=== PATIENT | male | born 1960 | race Caucasian/White ===

== ENCOUNTER 2016-09-21 14:03 | Outpatient (CLI) | payer MEDICAID | END 2016-09-21 14:04 | disposition home or self-care (01) | DX: Z12.2 Encounter for screening for malignant neoplasm of respiratory organs (principal); F17.209 Nicotine dependence, unspecified, with unspecified nicotine-induced disorders; M79.605 Pain in left leg; M79.604 Pain in right leg | CPT/HCPCS: 93925; 93970; G0297 ==

== ENCOUNTER 2016-09-21 14:08 | Outpatient (CLI) | payer MEDICAID | END 2016-09-21 14:09 | disposition home or self-care (01) | DX: M79.605 Pain in left leg (principal); M79.604 Pain in right leg ==

== ENCOUNTER 2016-09-29 13:15 | Outpatient (CLI) | payer MEDICAID | END 2016-09-29 13:16 | disposition home or self-care (01) | DX: J43.9 Emphysema, unspecified (principal) ==

== ENCOUNTER 2016-11-01 13:09 | Outpatient (CLI) | payer MEDICAID ==
[2016-11-01] MEDS ORDERED: ALBUTEROL NEB 2.5 MG/3 ML INH ONE (13:27)
== END 2016-11-01 13:10 | disposition home or self-care (01) ==
DX: J43.9 Emphysema, unspecified (principal)
CPT/HCPCS: 94060; 94729; J7613

== ENCOUNTER 2017-01-10 10:42 | Outpatient (CLI) | payer MEDICAID | END 2017-01-10 10:43 | disposition critical access hospital (66) | LOC: EMS 10:42 | PROVIDERS: ATTEND Surgery | DX: R53.81 Other malaise (principal); R11.0 Nausea | CPT/HCPCS: A0425; A0427 ==

== ENCOUNTER 2017-01-10 11:07 | Emergency (ER) | payer MEDICAID ==
[2017-01-10] MEDS ORDERED: MAG HYDROX/AL HYDROX/SIMETH 30 ML UDC PO STA (11:44)
[2017-01-10] MEDS ORDERED: MAG HYDROX/AL HYDROX/SIMETH 30 ML UDC ONE (11:52)
== END 2017-01-10 13:44 | disposition home or self-care (01) ==
DX: R07.2 Precordial pain (principal); I25.10 Atherosclerotic heart disease of native coronary artery without angina pectoris; J44.9 Chronic obstructive pulmonary disease, unspecified; I10 Essential (primary) hypertension
CPT/HCPCS: 36415; 71020; 80053; 83690; 84484; 93005; 93010; 99283; 99284; A9270

== ENCOUNTER 2017-01-13 12:36 | Outpatient (CLI) | payer MEDICAID | END 2017-01-13 12:37 | disposition home or self-care (01) | DX: M79.604 Pain in right leg (principal); M79.605 Pain in left leg; I25.5 Ischemic cardiomyopathy ==

== ENCOUNTER 2017-03-24 12:29 | Outpatient (CLI) | payer MEDICAID | END 2017-03-24 12:30 | disposition critical access hospital (66) | LOC: EMS 12:29 | PROVIDERS: ATTEND Surgery | DX: R19.7 Diarrhea, unspecified (principal); R53.1 Weakness; R11.0 Nausea; R42 Dizziness and giddiness | CPT/HCPCS: A0425; A0429 ==

== ENCOUNTER 2017-03-24 12:51 | Emergency (ER) | payer MEDICAID ==
--- NOTE | 2017-03-24 13:17 | ED Physician Documentation ---
History of Present Illness - Stated complaint Stated Complaint: DIARRHEA - Chief complaint Chief Complaint: Neuro - History obtained from History obtained from: Patient, Family (mother) - History of Present Illness Timing: How many days ago (2) - Additonal information Additional information: The patient is a 56-year-old male who presents with nausea and vomiting of 2 days duration. He has had watery diarrhea yesterday, but not today. He denies abdominal pain or dysuria. He has felt "hot and cold," reports slight dyspnea, as well as "dizziness." He denies cough or chest pain. He reports similar symptoms twice in the past, and expresses concern that "they haven't been able to figure out what is wrong." Past medical history is significant for myocardial infarction in August 2016, after which he underwent coronary stents 4. He stopped smoking cigarettes 6 months ago, and reports a 40 pound weight gain since stopping smoking. Review of Systems Constitutional: reports: Chills, Fatigue Ears: denies: Tinnitus/ringing Nose: denies: Congestion Throat: denies: Sore throat Cardiac: denies: Chest pain / pressure Respiratory: reports: Dyspnea. denies: Cough GI: reports: Nausea, Vomiting, Diarrhea. denies: Abdominal Pain : denies: Dysuria Skin: denies: Rash Musculoskeletal: denies: Back pain, Extremity swelling Neurologic: reports: Generalized weakness. denies: Focal weakness, Numbness, Headache PD PAST MEDICAL HISTORY - Past Medical History Cardiovascular: Hypertension, Coronary artery disease, [place] Respiratory: None Neuro: None Endocrine/Autoimmune: None - Past Surgical History Past Surgical History: Yes Cardiovascular: Coronary stent - Present Medications Home Medications: Ambulatory Orders Medication Instructions Recorded Confirmed Atorvastatin [Lipitor] 80 mg PO DAILY 01/10/17 01/10/17 Carvedilol 1 tab PO BID 01/10/17 01/10/17 Clopidogrel [Plavix] 1 tab PO DAILY 01/10/17 01/10/17 Gabapentin 1 tab PO DAILY 01/10/17 01/10/17 Lisinopril 1 tab PO DAILY 01/10/17 01/10/17 Spironolactone 12.5 mg PO DAILY 01/10/17 01/10/17 Promethazine [Phenergan] 25 - 50 mg PO Q6H PRN #10 tab 03/24/17 - Allergies Allergies/Adverse Reactions: Allergies Allergy/AdvReac Type Severity Reaction Status Date / Time ibuprofen Allergy Nausea Verified 03/24/17 13:07 - Social History Does the pt smoke?: No Smoking Status: Former smoker Does the pt drink ETOH?: No Does the pt have substance abuse?: Yes PD ED PE NORMAL - Vitals Vital signs reviewed: Yes (hypertensive) - General General: Alert and oriented X 3, Well developed/nourished - HEENT HEENT: Atraumatic, EOMI, Pharynx benign - Neck Neck: No adenopathy, No JVD - Cardiac Cardiac: RRR, No murmur - Respiratory Respiratory: No respiratory distress, Clear bilaterally - Abdomen Abdomen: Soft, Non tender, No organomegaly - Back Back: No CVA TTP - Derm Derm: No rash - Extremities Extremities: No edema, No calf tenderness / cord - Neuro Neuro: Alert and oriented X 3, No motor deficit, No sensory deficit Results - Vitals Vitals: Oxygen O2 Source Room air - EKG (time done) 13:06 Rate: Rate (enter#) (72) Rhythm: NSR Cardinal: Normal Intervals: Normal [place] Ischemia: Q waves (in leads V2 and V3, consistent with previous anteroseptal MT. ) Compare to prior EKG: Unchanged from prior EKG (No significant change since prior tracing of 01/10/2017.) Computer interpretation: Agree with computer - Labs Labs: Laboratory Tests 03/24/17 03/24/17 03/24/17 14:20 14:20 14:20 WBC 9.6 RBC 5.04 Hgb 12.3 L Hct 37.5 L MCV 74.4 L MCH 24.4 L MCHC 32.9 RDW 20.0 H Plt Count 179 MPV 8.5 Neut # 7.9 H Lymph # 1.0 L [place] # 0.7 Eos # 0.0 Baso # 0.0 Absolute Nucleated RBC 0.00 Nucleated RBCs 0.0 Sodium 137 Potassium 4.2 Chloride 107 Carbon Dioxide 24 Anion Gap 6.0 BUN 24 H Creatinine 1.0 Estimated GFR (MDRD) 77 L Glucose 125 H Calcium 9.5 Total Bilirubin 0.3 AST 33 ALT 52 Alkaline Phosphatase 68 Troponin I 0.05 Total Protein 7.0 Albumin 4.0 Globulin 3.0 Albumin/Globulin Ratio 1.3 Lipase 49 Urine Color Urine Clarity Urine pH Ur Specific [place] Urine Protein Urine Glucose (UA) Urine Ketones Urine Occult Blood Urine Nitrite Urine Bilirubin Urine Urobilinogen Ur Leukocyte Esterase Ur Microscopic Review Urine Culture Comments 03/24/17 14:25 WBC RBC Hgb Hct MCV MCH MCHC RDW Plt Count MPV Neut # Lymph # [place] # Eos # Baso # Absolute Nucleated RBC Nucleated RBCs Sodium Potassium Chloride Carbon Dioxide Anion Gap BUN Creatinine Estimated GFR (MDRD) Glucose Calcium Total Bilirubin AST ALT Alkaline Phosphatase Troponin I Total Protein Albumin Globulin Albumin/Globulin Ratio Lipase Urine Color YELLOW Urine Clarity CLEAR Urine pH 6.0 Ur Specific [place] <=1.005 Urine Protein NEGATIVE Urine Glucose (UA) NEGATIVE Urine Ketones NEGATIVE Urine Occult Blood NEGATIVE Urine Nitrite NEGATIVE Urine Bilirubin NEGATIVE Urine Urobilinogen 0.2 (NORMAL) Ur Leukocyte Esterase NEGATIVE Ur Microscopic Review NOT INDICATED Urine Culture Comments NOT INDICATED PD MEDICAL DECISION MAKING - ED course Complexity details: reviewed old records, reviewed results, re-evaluated patient , considered differential, d/w patient, d/w family ED course: The patient's presentation is significant for vomiting and diarrhea with mild dehydration. His presentation does not suggest an acute abdominal process, and his labs are unremarkable except for a slightly elevated BUN/creatinine ratio. While in the emergency department he demonstrated ability to drink fluids orally without any recurrent nausea or diarrhea. He is being discharged with prescription for Phenergan. I discussed with him and his mother the results of his workup, symptomatic treatment and outpatient follow-up, as well as potentially worrisome signs or symptoms that should prompt reevaluation in the emergency department. Departure - Departure Disposition: 01 Home, Self Care Clinical Impression: Vomiting and diarrhea, Dehydration Hypertension Qualifiers: Hypertension type: unspecified secondary hypertension Qualified Code(s): I15.9 - Secondary hypertension, unspecified Condition: Stable Instructions: ED Diet Vomiting Diarrhea, ED Dehydration Follow-Up: Juanita Landeros ARNP [Credentialed Staff Provider] - Prescriptions: Promethazine [Phenergan] 25 - 50 mg PO Q6H PRN #10 tab PRN Reason: Nausea / Vomiting Comments: 1. Drink plenty of fluids. 2. You can use Phenergan as prescribed if needed for nausea. 3. Follow-up with your primary physician within 1-2 weeks. Call to schedule appointment. 4. Return to the emergency department if you develop persistent vomiting, recurrent dehydration, or otherwise worsening symptoms. Discharge Date/Time: 03/24/17 17:09
[2017-03-24 14:45] LABS: BILIRUBIN,URINE NEGATIVE (NEGATIVE)
[2017-03-24 14:47] LABS: UA CHARGE (STRIP ONLY) YES; UR CULTURE IF IND NOT INDICATED
[2017-03-24 14:47] LABS: BASOPHILS % (AUTO) 0.5 %; EOSINOPHILS % (AUTO) 0.3 %; HCT - HEMATOCRIT 37.5 % (42.0-52.0); HGB - HEMOGLOBIN 12.3 g/dL (14.0-18.0); LYMPHOCYTES % (AUTO) 9.9 %; MEAN CORPUSCULAR HEMOGLOBIN 24.4 pg (27.0-31.0); MEAN CORPUSCULAR HGB CONC 32.9 g/dL (32.0-36.0); MEAN CORPUSCULAR VOLUME 74.4 fL (80.0-94.0); MEAN PLATELET VOLUME 8.5 fL (7.4-11.4); MONOCYTES # (AUTO) 0.7 10^3/uL (0.0-1.0); MONOCYTES % (AUTO) 7.2 %; NEUTROPHILS # (AUTO) 7.9 10^3/uL (1.5-6.6); NEUTROPHILS % (AUTO) 82.1 %; RED BLOOD COUNT 5.04 10^6/uL (4.70-6.10); UNCORRECTED WHITE BLOOD COUNT 9.6 x10^3/uL; WHITE BLOOD COUNT 9.6 x10^3/uL (4.8-10.8)
[2017-03-24 14:59] LABS: ALBUMIN/GLOBULIN RATIO 1.3 (1.0-2.2); BILIRUBIN,TOTAL 0.3 mg/dL (0.2-1.0); CALCIUM 9.5 mg/dL (8.5-10.3); POTASSIUM 4.2 mmol/L (3.5-5.0)
[2017-03-24 17:10] VITALS: BP 166/76
== END 2017-03-24 17:09 | disposition home or self-care (01) ==
LOC: EDUNIT# → SUPCPDRO 12:51 → ED 12:51
DX: R11.10 Vomiting, unspecified (principal); R19.7 Diarrhea, unspecified; E86.0 Dehydration; I10 Essential (primary) hypertension; I25.2 Old myocardial infarction; I25.10 Atherosclerotic heart disease of native coronary artery without angina pectoris; Z95.5 Presence of coronary angioplasty implant and graft; Z87.891 Personal history of nicotine dependence
CPT/HCPCS: 36415; 80053; 81001; 81003; 83690; 84484; 85025; 87086; 93005; 99283

== ENCOUNTER 2017-05-24 13:52 | Outpatient (CLI) | payer MEDICAID | END 2017-05-24 13:53 | disposition critical access hospital (66) | LOC: EMS 13:52 | PROVIDERS: ATTEND Surgery | DX: R07.89 Other chest pain (principal); R42 Dizziness and giddiness; R11.0 Nausea; R06.02 Shortness of breath | CPT/HCPCS: A0425; A0427 ==

== ENCOUNTER 2017-05-24 14:13 | Emergency (ER) | payer MEDICAID ==
[2017-05-24] MEDS ORDERED: SODIUM CHLORIDE 0.9% 1,000 ML IV ONE ×2 (14:33)
--- NOTE | 2017-05-24 14:48 | ED Physician Documentation ---
PD HPI CHEST PAIN - Stated complaint Stated Complaint: CP - Chief complaint Chief Complaint: Cardiac - History obtained from History obtained from: Patient, EMS - History of Present Illness Timing - onset: How many hours ago (1) Timing - onset during: Light activity (vacuuming) Timing - duration: Hours (1) Timing - details: Abrupt onset Pain level max: 5 Pain level now: 0 Quality: Pressure, Tightness Location: Substernal Radiation: Other (non-radiating) Improved by: Nitro (CP resolved with 1 SL NTG), ASA (took 4 ASA FEED WEIGHER (81mg)) Worsened by: Other (nothing) Associated symptoms: Shortness of air, Nausea, Feeling faint / dizzy. No: Diaphoresis, Vomiting, General Weakness, Palpitations, Cough Similar symptoms before: Diagnosis (ACS, 4 cardiac stents at [facility] in [place] 08/2016) Recently seen: Not recently seen Review of Systems Ten Systems: 10 systems reviewed and negative Constitutional: denies: Fever, Chills Respiratory: denies: Cough, Hemoptysis, Wheezing GI: denies: Abdominal Pain, Nausea, Vomiting, Diarrhea Skin: denies: Rash Musculoskeletal: denies: Neck pain, Back pain Neurologic: denies: Headache PD PAST MEDICAL HISTORY - Past Medical History Cardiovascular: Hypertension, Coronary artery disease, [place] Respiratory: None Neuro: None Endocrine/Autoimmune: None - Past Surgical History Past Surgical History: Yes Cardiovascular: Coronary stent - Present Medications Home Medications: Ambulatory Orders Medication Instructions Recorded Confirmed Atorvastatin [Lipitor] 80 mg PO DAILY 01/10/17 05/24/17 Carvedilol 1 tab PO BID 01/10/17 05/24/17 Clopidogrel [Plavix] 1 tab PO DAILY 01/10/17 05/24/17 Lisinopril 1 tab PO DAILY 01/10/17 05/24/17 Spironolactone 12.5 mg PO DAILY 01/10/17 05/24/17 raNITIdine [Zantac] 150 mg PO DAILY 05/24/17 05/24/17 - Allergies Allergies/Adverse Reactions: Allergies Allergy/AdvReac Type Severity Reaction Status Date / Time ibuprofen Allergy Nausea Verified 03/24/17 13:07 - Social History Does the pt smoke?: No Smoking Status: Former smoker Does the pt drink ETOH?: No Does the pt have substance abuse?: Yes PD ED PE NORMAL - Vitals Vital signs reviewed: Yes - General General: Alert and oriented X 3, No acute distress, Well developed/nourished - HEENT HEENT: PERRL, Moist mucous membranes - Neck Neck: Supple, no meningeal sign - Cardiac Cardiac: RRR, Strong equal pulses - Respiratory Respiratory: No respiratory distress, Clear bilaterally - Abdomen Abdomen: Soft, Non tender, Non distended - Derm Derm: Warm and dry, No rash - Neuro Neuro: Alert and oriented X 3 - Psych Psych: Normal mood, Normal affect Results - Vitals Vitals: Oxygen O2 Source Room air - EKG (time done) 1429 Rate: Rate (enter#) (60) Rhythm: NSR [place]: Normal Intervals: Normal [place] QRS: Normal Ischemia: Normal ST segments, Q waves (V1-3) - Labs Labs: Laboratory Tests 05/24/17 05/24/17 05/24/17 14:55 14:55 14:55 WBC 7.4 RBC 4.70 Hgb 11.8 L Hct 36.4 L MCV 77.6 L MCH 25.2 L MCHC 32.5 RDW 17.9 H Plt Count 200 MPV 8.1 Neut # 5.1 Lymph # 1.3 L [place] # 0.7 Eos # 0.2 Baso # 0.1 Absolute Nucleated RBC 0.00 Nucleated RBCs 0.0 Sodium 138 Potassium 4.1 Chloride 108 Carbon Dioxide 21 Anion Gap 9.0 BUN 24 H Creatinine 1.0 Estimated GFR (MDRD) 77 L Glucose 107 H Calcium 9.5 Total Bilirubin 0.6 AST 24 ALT 34 Alkaline Phosphatase 63 Troponin I < 0.04 Total Protein 6.8 Albumin 4.0 Globulin 2.8 Albumin/Globulin Ratio 1.4 Lipase 107 H - Rads (name of study) cxr Radiology: Prelim report reviewed, EMP read contemporaneously, See rad report ( no acute disease) PD MEDICAL DECISION MAKING - ED course Complexity details: reviewed old records, reviewed results, re-evaluated patient , considered differential (No ST elevation NH, no aortic dissection, no PE, no tension pneumothorax, no aortic aneurysm), d/w patient ED course: Patient is a 56-year-old male who presents to the emergency department with chest pain. Has a history of for cardiac stents within the past year. His symptoms resolved in the emergency department and states that he feels much better and wants to go home. Implored the patient to stay for serial cardiac enzymes and potential repeat stress testing. Patient adamantly refuses this. He states he understands the risks and he feels better and wants to go home. He understands that we could miss a heart attack a stent occlusion or other serious medical issue. He is alert and oriented 3. Does not appear intoxicated. Does not appear to be under the influence of any substances. States clear understanding of the risks. Patient signed AMA. This document was made in part using voice recognition software. While efforts are made to proofread this document, sound alike and grammatical errors may occur. Departure - Departure Disposition: 07 Against Medical Advice Clinical Impression: Chest pain Qualifiers: Chest pain type: unspecified Qualified Code(s): R07.9 - Chest pain, unspecified Condition: Good Follow-Up: Andres Delgado MD [Primary Care Provider] - Tomorrow Comments: Return if you change your mind about being further evaluated or admitted. You are signing out against medical advice today. You are welcome to return at any time. Discharge Date/Time: 05/24/17 16:53
[2017-05-24 15:04] LABS: BASOPHILS # (AUTO) 0.1 10^3/uL (0.0-0.1); BASOPHILS % (AUTO) 1.4 %; EOSINOPHILS # (AUTO) 0.2 10^3/uL (0.0-0.7); EOSINOPHILS % (AUTO) 2.1 %; HCT - HEMATOCRIT 36.4 % (42.0-52.0); HGB - HEMOGLOBIN 11.8 g/dL (14.0-18.0); LYMPHOCYTES # (AUTO) 1.3 10^3/uL (1.5-3.5); MEAN CORPUSCULAR HEMOGLOBIN 25.2 pg (27.0-31.0); MEAN CORPUSCULAR HGB CONC 32.5 g/dL (32.0-36.0); MEAN CORPUSCULAR VOLUME 77.6 fL (80.0-94.0); MEAN PLATELET VOLUME 8.1 fL (7.4-11.4); MONOCYTES # (AUTO) 0.7 10^3/uL (0.0-1.0); NEUTROPHILS # (AUTO) 5.1 10^3/uL (1.5-6.6); NEUTROPHILS % (AUTO) 69.5 %; RED CELL DISTRIBUTION WIDTH 17.9 % (12.0-15.0); UNCORRECTED WHITE BLOOD COUNT 7.4 x10^3/uL; WHITE BLOOD COUNT 7.4 x10^3/uL (4.8-10.8)
[2017-05-24 15:17] LABS: ALBUMIN/GLOBULIN RATIO 1.4 (1.0-2.2); BILIRUBIN,TOTAL 0.6 mg/dL (0.2-1.0); CALCIUM 9.5 mg/dL (8.5-10.3); POTASSIUM 4.1 mmol/L (3.5-5.0); TOTAL PROTEIN 6.8 g/dL (6.7-8.2)
--- NOTE | 2017-05-24 15:57 | XRAY Preliminary Report ---
Exam: XR Chest 1 View IMPRESSION: No focal consolidation. [facility] SITE ID: [id number]
--- NOTE | 2017-05-24 16:00 | XRAY Report ---
EXAM: CHEST RADIOGRAPHY EXAM DATE: 05/24/2017 03:08 PM. CLINICAL HISTORY: Chest pain. COMPARISON: Chest radiograph dated 01/10/2017. TECHNIQUE: 1 view. FINDINGS: Lungs/Pleura: No focal opacities evident. No pleural effusion. No pneumothorax. Mediastinum: Within exam limitations, cardiomediastinal contour is normal. Other: None. IMPRESSION: No focal consolidation. [facility] Referring Provider Line: [phone] SITE ID: [id number]
[2017-05-24 16:45] VITALS: BP 129/94
== END 2017-05-24 16:53 | disposition left against medical advice (07) ==
LOC: EDUNIT# → ED 14:13
DX: R07.9 Chest pain, unspecified (principal); R94.31 Abnormal electrocardiogram [ECG] [EKG]; I10 Essential (primary) hypertension; I25.10 Atherosclerotic heart disease of native coronary artery without angina pectoris; I25.2 Old myocardial infarction; Z95.5 Presence of coronary angioplasty implant and graft; Z87.891 Personal history of nicotine dependence
CPT/HCPCS: 36415; 71010; 80053; 83690; 84484; 85025; 93005; 96360; 96361; 99284

== ENCOUNTER 2017-12-04 08:00 | Outpatient (CLI) | payer MEDICAID ==
[2017-12-04 17:59] LABS: BASOPHILS # (AUTO) 0.1 10^3/uL (0.0-0.1); BASOPHILS % (AUTO) 1.2 %; EOSINOPHILS % (AUTO) 0.7 %; HGB - HEMOGLOBIN 12.4 g/dL (14.0-18.0); LYMPHOCYTES # (AUTO) 1.1 10^3/uL (1.5-3.5); LYMPHOCYTES % (AUTO) 15.7 %; MEAN CORPUSCULAR VOLUME 74.9 fL (80.0-94.0); MEAN PLATELET VOLUME 9.1 fL (7.4-11.4); MONOCYTES # (AUTO) 0.6 10^3/uL (0.0-1.0); MONOCYTES % (AUTO) 8.2 %; NEUTROPHILS # (AUTO) 5.4 10^3/uL (1.5-6.6); NEUTROPHILS % (AUTO) 74.2 %; PLT - PLATELET COUNT 211 10^3/uL (130-450); RED BLOOD COUNT 5.18 10^6/uL (4.70-6.10); RED CELL DISTRIBUTION WIDTH 19.4 % (12.0-15.0); WHITE BLOOD COUNT 7.2 x10^3/uL (4.8-10.8)
[2017-12-04 18:15] LABS: CALCIUM 9.3 mg/dL (8.5-10.3); CREATININE 1.1 mg/dL (0.6-1.2)
== END 2017-12-04 08:01 ==
LOC: LAB.S 08:00
PROVIDERS: ATTEND Nurse Practitioner Family
DX: I25.10 Atherosclerotic heart disease of native coronary artery without angina pectoris (principal); D64.9 Anemia, unspecified; E78.5 Hyperlipidemia, unspecified
CPT/HCPCS: 36415; 80048; 83721; 85025

== ENCOUNTER 2018-01-02 20:42 | Outpatient (CLI) | payer MEDICAID | END 2018-01-02 20:43 | disposition short-term general hospital (02) | LOC: EMS 20:42 | PROVIDERS: ATTEND Surgery | DX: R07.89 Other chest pain (principal); R06.02 Shortness of breath; R42 Dizziness and giddiness | CPT/HCPCS: A0170; A0425; A0427 ==

== ENCOUNTER 2018-01-05 12:27 | Outpatient (CLI) | payer MEDICAID | END 2018-01-05 12:28 | disposition short-term general hospital (02) | LOC: EMS 12:27 | PROVIDERS: ATTEND Surgery | DX: R07.89 Other chest pain (principal); R42 Dizziness and giddiness; R61 Generalized hyperhidrosis | CPT/HCPCS: A0170; A0425; A0427 ==

== ENCOUNTER 2018-01-19 21:54 | Outpatient (CLI) | payer MEDICAID | END 2018-01-19 21:55 | disposition critical access hospital (66) | LOC: EMS 21:54 | PROVIDERS: ATTEND Surgery | DX: R07.9 Chest pain, unspecified (principal); R61 Generalized hyperhidrosis; R42 Dizziness and giddiness | CPT/HCPCS: A0425; A0427 ==

== ENCOUNTER 2018-01-19 22:20 | Emergency (ER) | payer MEDICAID ==
--- NOTE | 2018-01-19 22:32 | ED Physician Documentation ---
PD HPI CHEST PAIN - Stated complaint Stated Complaint: CP - Chief complaint Chief Complaint: Cardiac - History obtained from History obtained from: Patient - History of Present Illness Timing - onset: Enter time (18:00), Today Timing - onset during: Rest Timing - details: Abrupt onset Pain level max: 5 Pain level now: 0 Quality: Pain Location: Substernal, Left chest, Right chest Radiation: No: Jaw, Neck, Back, Abdominal, Left upper extremity, Right upper extremity Improved by: Nothing Worsened by: Other (no exacerbating factors) Associated symptoms: Shortness of air, Diaphoresis Recently seen: Emergency Dept - Additional information Additional information: patient complains of pounding palpitations, chest pain, mild shortness of breath , and sweats. Symptoms started 6 PM at home while at rest and have resolved prior to this evaluation. Patient says he was in the [facility] emergency room four times last week for these symptoms, and was observed overnight on one of these visits. Patient says testing on all of those visits were unremarkable. He also had a stress test two days ago at [facility] which was negative, and had a cardiac catheterization June 2017, which showed patent vessels including stents (h/o stents). he says he feels these symptoms might be due to anxiety, and xanax has worked well when it was prescribed last week (he says he was prescribed 7 tablets and was even getting relief with half-tab dose), although he becomes concerned with these symptoms given his cardiac history. Review of Systems Constitutional: reports: Sweats. denies: Fever, Chills Cardiac: reports: Chest pain / pressure, Palpitations Respiratory: reports: Reviewed and negative GI: reports: Reviewed and negative PD PAST MEDICAL HISTORY - Past Medical History Cardiovascular: Hypertension, Coronary artery disease, [place] Respiratory: None Endocrine/Autoimmune: None - Past Surgical History Past Surgical History: Yes Cardiovascular: Coronary stent - Present Medications Home Medications: Ambulatory Orders Medication Instructions Recorded Confirmed Atorvastatin [Lipitor] 80 mg PO DAILY 01/10/17 05/24/17 Carvedilol 1 tab PO BID 01/10/17 05/24/17 Clopidogrel [Plavix] 1 tab PO DAILY 01/10/17 05/24/17 Lisinopril 1 tab PO DAILY 01/10/17 05/24/17 Spironolactone 12.5 mg PO DAILY 01/10/17 05/24/17 raNITIdine [Zantac] 150 mg PO DAILY 05/24/17 05/24/17 ALPRAZolam [Alprazolam] 0.5 - 1 mg PO TID PRN #20 tablet 01/20/18 - Allergies Allergies/Adverse Reactions: Allergies Allergy/AdvReac Type Severity Reaction Status Date / Time ibuprofen Allergy Nausea Verified 03/24/17 13:07 - Social History Does the pt smoke?: No Smoking Status: Former smoker Does the pt drink ETOH?: No Does the pt have substance abuse?: Yes PD ED PE NORMAL - Vitals Vital signs reviewed: Yes - General General: Alert and oriented X 3, No acute distress, Well developed/nourished - Cardiac Cardiac: RRR, No murmur - Respiratory Respiratory: No respiratory distress, Clear bilaterally - Derm Derm: Normal color, Warm and dry - Extremities Extremities: No edema - Neuro Neuro: Alert and oriented X 3 Results - Vitals Vitals: Oxygen O2 Source Room air - EKG (time done) No standard instances Rate: Rate (enter#) (61) Rhythm: NSR [place]: Normal Intervals: Normal [place] QRS: Normal Ischemia: Normal ST segments - Labs Labs: Laboratory Tests 01/19/18 01/19/18 01/19/18 22:51 22:51 22:51 WBC 8.5 RBC 3.77 L Hgb 9.0 L Hct 28.5 L MCV 75.6 L MCH 23.9 L MCHC 31.6 L RDW 17.0 H Plt Count 186 MPV 8.3 Neut # 7.1 H Lymph # 0.8 L [place] # 0.6 Eos # 0.0 Baso # 0.1 Absolute Nucleated RBC 0.00 Nucleated RBC % 0.0 Sodium 137 Potassium 3.8 Chloride 105 Carbon Dioxide 23 Anion Gap 9.0 BUN 17 Creatinine 1.0 Estimated GFR (MDRD) 77 L Glucose 124 H Calcium 9.8 Total Bilirubin 0.5 AST 21 ALT 24 Alkaline Phosphatase 48 Troponin I < 0.04 Total Protein 6.5 L Albumin 3.8 Globulin 2.7 Albumin/Globulin Ratio 1.4 Lipase 62 H PD MEDICAL DECISION MAKING - ED course Complexity details: reviewed results, re-evaluated patient (remained asymptomatic during ED stay), considered differential, d/w patient Departure - Departure Disposition: 01 Home, Self Care Clinical Impression: Chest pain, Palpitations, Anemia Condition: Good Instructions: ED Anemia Type Not Specified, ED Chest Pain Atypical Unkn Cause, ED Palpitations Follow-Up: Juanita Landeros ARNP [Primary Care Provider] - Prescriptions: ALPRAZolam [Alprazolam] 0.5 - 1 mg PO TID PRN #20 tablet PRN Reason: Anxiety Comments: Your red blood cell level was low today, but not at a level that would need transfusions or admission to the hospital. You should follow up with your primary care physician within the next 1-2 weeks for reevaluation. Discharge Date/Time: 01/20/18 01:32
[2018-01-19 23:01] LABS: BASOPHILS # (AUTO) 0.1 10^3/uL (0.0-0.1); BASOPHILS % (AUTO) 0.7 %; EOSINOPHILS % (AUTO) 0.6 %; LYMPHOCYTES # (AUTO) 0.8 10^3/uL (1.5-3.5); LYMPHOCYTES % (AUTO) 8.8 %; MEAN CORPUSCULAR HEMOGLOBIN 23.9 pg (27.0-31.0); MEAN CORPUSCULAR HGB CONC 31.6 g/dL (32.0-36.0); MEAN CORPUSCULAR VOLUME 75.6 fL (80.0-94.0); MEAN PLATELET VOLUME 8.3 fL (7.4-11.4); MONOCYTES # (AUTO) 0.6 10^3/uL (0.0-1.0); MONOCYTES % (AUTO) 6.5 %; NEUTROPHILS # (AUTO) 7.1 10^3/uL (1.5-6.6); NEUTROPHILS % (AUTO) 83.4 %; PLT - PLATELET COUNT 186 10^3/uL (130-450); RED BLOOD COUNT 3.77 10^6/uL (4.70-6.10); WHITE BLOOD COUNT 8.5 x10^3/uL (4.8-10.8)
[2018-01-19 23:12] LABS: ALBUMIN 3.8 g/dL (3.2-5.5); ALBUMIN/GLOBULIN RATIO 1.4 (1.0-2.2); BILIRUBIN,TOTAL 0.5 mg/dL (0.2-1.0); CALCIUM 9.8 mg/dL (8.5-10.3); TOTAL PROTEIN 6.5 g/dL (6.7-8.2)
[2018-01-20] MEDS ORDERED: ALPRAZolam 0.25 MG TABLET PO STA (00:04)
[2018-01-20 01:17] VITALS: BP 134/80
== END 2018-01-20 01:32 | disposition home or self-care (01) ==
LOC: EDUNIT# → ED 22:20
DX: R07.9 Chest pain, unspecified (principal); R00.2 Palpitations; D64.9 Anemia, unspecified; Z87.891 Personal history of nicotine dependence
CPT/HCPCS: 36415; 80053; 83690; 84484; 85025; 93005; 99284; A9270; 82550; 82553

== ENCOUNTER 2018-01-27 10:31 | Outpatient (CLI) | payer MEDICAID | END 2018-01-27 10:32 | disposition critical access hospital (66) | LOC: EMS 10:31 | PROVIDERS: ATTEND Surgery | DX: R07.9 Chest pain, unspecified (principal) | CPT/HCPCS: A0425; A0427 ==

== ENCOUNTER 2018-01-27 10:55 | Emergency (ER) | payer MEDICAID ==
--- NOTE | 2018-01-27 11:15 | ED Physician Documentation ---
PD HPI CHEST PAIN - Stated complaint Stated Complaint: CP - Chief complaint Chief Complaint: Cardiac - History obtained from History obtained from: Patient, EMS - History of Present Illness Timing - onset: Today Timing - onset during: Rest Timing - duration: Minutes Timing - details: Abrupt onset, Now resolved Quality: Pressure, Tightness Location: Substernal, Left chest Improved by: Rest Associated symptoms: Shortness of air, Diaphoresis, Feeling faint / dizzy, Palpitations Similar symptoms before: Diagnosis (panic attack) Recently seen: Emergency Dept - Additional information Additional information: 57-year-old male with history of coronary artery disease who has a single stent in place has developed recurrent symptoms of palpitations shortness of breath and diaphoresis and he has been into the emergency department at [facility] in [place] multiple times is been here to this emergency department and he has had prior workup and admission overnight at [facility]. He has been diagnosed with panic disorder and he has been having some luck with the use of Xanax three quarters of a milligram to control his symptoms and he has been placed on the Paxil. He took his first dose of Paxil last night and this morning he took a second dose unwittingly when he took half of a pill which he thought was his Spironolactone which he cuts in half and it was the other half of the Paxil he took from last night. Review of Systems Constitutional: denies: Fever Eyes: denies: Decreased vision Ears: denies: Ear pain Nose: denies: Rhinorrhea / runny nose, Congestion Throat: denies: Sore throat Cardiac: reports: Chest pain / pressure, Palpitations. denies: Pedal edema, Calf pain Respiratory: reports: Dyspnea. denies: Cough, Wheezing GI: denies: Abdominal Pain, Nausea, Vomiting : denies: Dysuria, Frequency PD PAST MEDICAL HISTORY - Past Medical History Cardiovascular: Hypertension, Coronary artery disease, [place] Respiratory: None Endocrine/Autoimmune: None - Past Surgical History Past Surgical History: Yes Cardiovascular: Coronary stent - Present Medications Home Medications: Ambulatory Orders Medication Instructions Recorded Confirmed Atorvastatin [Lipitor] 80 mg PO DAILY 01/10/17 05/24/17 Carvedilol 1 tab PO BID 01/10/17 05/24/17 Clopidogrel [Plavix] 1 tab PO DAILY 01/10/17 05/24/17 Lisinopril 1 tab PO DAILY 01/10/17 05/24/17 Spironolactone 12.5 mg PO DAILY 01/10/17 05/24/17 raNITIdine [Zantac] 150 mg PO DAILY 05/24/17 05/24/17 ALPRAZolam [Alprazolam] 0.5 - 1 mg PO TID PRN #20 tablet 01/20/18 Alprazolam [Xanax] 0.5 - 1 mg PO Q6HR PRN #15 tablet 01/27/18 Ferrous Sulfate 325 mg PO DAILY #30 tablet 01/27/18 - Allergies Allergies/Adverse Reactions: Allergies Allergy/AdvReac Type Severity Reaction Status Date / Time ibuprofen Allergy Nausea Verified 03/24/17 13:07 - Social History Does the pt smoke?: No Smoking Status: Former smoker Does the pt drink ETOH?: No Does the pt have substance abuse?: Yes - Immunizations Immunizations are current?: No Immunizations: TDAP >10years/unknown - POLST Patient has POLST: No PD ED PE NORMAL - Vitals Vital signs reviewed: Yes (hypertensive ) - General General: Alert and oriented X 3, No acute distress, Well developed/nourished, Other (pale appearing male in no distress) - HEENT HEENT: Atraumatic, PERRL - Neck Neck: Supple, no meningeal sign - Cardiac Cardiac: RRR, No murmur - Respiratory Respiratory: No respiratory distress, Clear bilaterally - Abdomen Abdomen: Soft, Non tender - Back Back: No CVA TTP, No spinal TTP - Derm Derm: Normal color, Warm and dry, No rash - Extremities Extremities: No deformity, No tenderness to palpate, No edema - Neuro Neuro: No motor deficit, No sensory deficit Eye Opening: Spontaneous Motor: Obeys Commands Verbal: Oriented GCS Score: 15 - Psych Psych: Normal mood, Normal affect Results - Vitals Vitals: Vital Signs - 24 hr 01/27/18 01/27/18 11:00 13:33 Temperature 36.2 C L Heart Rate 80 76 Respiratory 16 16 Rate Blood Pressure 163/114 H 147/86 H O2 Saturation 100 99 Oxygen O2 Source Room air - EKG (time done) 1100 Rate: Rate (enter#) (68) Rhythm: NSR Ischemia: Normal ST segments, Q waves Compare to prior EKG: Unchanged from prior EKG (01-19-18) Computer interpretation: Agree with computer - Labs Labs: Laboratory Tests 01/27/18 01/27/18 01/27/18 11:19 11:19 11:19 WBC 7.0 RBC 3.66 L Hgb 8.8 L Hct 27.9 L MCV 76.2 L MCH 24.2 L MCHC 31.7 L RDW 16.9 H Plt Count 160 MPV 8.0 Neut # 5.3 Lymph # 1.0 L [place] # 0.6 Eos # 0.0 Baso # 0.1 Absolute Nucleated RBC 0.00 Nucleated RBC % 0.0 Sodium 136 Potassium 4.2 Chloride 107 Carbon Dioxide 21 Anion Gap 8.0 BUN 22 H Creatinine 0.8 Estimated GFR (MDRD) 99 Glucose 111 H Calcium 9.0 Total Bilirubin 0.4 AST 19 ALT 24 Alkaline Phosphatase 51 Troponin I < 0.04 Total Protein 6.5 L Albumin 3.7 Globulin 2.8 Albumin/Globulin Ratio 1.3 Lipase 191 H Procedures - IVC sono (time) 1112 Bedside IVC sono: IVC measures (cm) (1.74), [place] PD MEDICAL DECISION MAKING - ED course Complexity details: reviewed old records, reviewed results, re-evaluated patient , considered differential, d/w patient ED course: 57-year-old male with a history of anemia and coronary artery disease has come into the emergency department today with another episode of chest pain. He states these pain today is similar to what he has had with panic attacks recently and he has just switched from taking Xanax to Paxil. He is taken only a second dose of Paxil and he has not had relief of his panic attacks yet. He is evaluated here in the emergency department and I do not see evidence of acute coronary syndrome but the patient does have significant anemia that looks like a microcytic anemia and has an elevated RDW consistent with blood loss recently. His indices are not changed much from 2 1/2 weeks ago. He is treated here with xanax with resolution of symptoms and we will provide a small amount of this until his paxil is fully effective. He has appointment for further work up of GI tract up coming. Departure - Departure Disposition: 01 Home, Self Care Clinical Impression: Panic attacks Anemia Qualifiers: Anemia type: iron deficiency Iron deficiency anemia type: chronic blood loss Qualified Code(s): D50.0 - Iron deficiency anemia secondary to blood loss ( chronic) Condition: Stable Instructions: ED Anemia Iron Deficiency, ED Panic Attack Follow-Up: Juanita Landeros ARNP [Primary Care Provider] - Prescriptions: Alprazolam [Xanax] 0.5 - 1 mg PO Q6HR PRN #15 tablet PRN Reason: Anxiety Ferrous Sulfate 325 mg PO DAILY #30 tablet Discharge Date/Time: 01/27/18 13:33
[2018-01-27 11:27] LABS: BASOPHILS # (AUTO) 0.1 10^3/uL (0.0-0.1); BASOPHILS % (AUTO) 0.8 %; EOSINOPHILS % (AUTO) 0.5 %; HGB - HEMOGLOBIN 8.8 g/dL (14.0-18.0); LYMPHOCYTES % (AUTO) 13.9 %; MEAN CORPUSCULAR HEMOGLOBIN 24.2 pg (27.0-31.0); MEAN CORPUSCULAR HGB CONC 31.7 g/dL (32.0-36.0); MEAN CORPUSCULAR VOLUME 76.2 fL (80.0-94.0); MONOCYTES # (AUTO) 0.6 10^3/uL (0.0-1.0); MONOCYTES % (AUTO) 9.2 %; NEUTROPHILS # (AUTO) 5.3 10^3/uL (1.5-6.6); NEUTROPHILS % (AUTO) 75.6 %; PLT - PLATELET COUNT 160 10^3/uL (130-450); RED BLOOD COUNT 3.66 10^6/uL (4.70-6.10); RED CELL DISTRIBUTION WIDTH 16.9 % (12.0-15.0)
[2018-01-27 11:42] LABS: ALBUMIN 3.7 g/dL (3.2-5.5); ALBUMIN/GLOBULIN RATIO 1.3 (1.0-2.2); BILIRUBIN,TOTAL 0.4 mg/dL (0.2-1.0); CREATININE 0.8 mg/dL (0.6-1.2); TOTAL PROTEIN 6.5 g/dL (6.7-8.2)
[2018-01-27] MEDS ORDERED: ALPRAZolam 0.25 MG TABLET PO STA (12:21)
--- NOTE | 2018-01-27 12:21 | XRAY Report ---
EXAM: CHEST RADIOGRAPHY EXAM DATE: 01/27/2018 11:34 AM. CLINICAL HISTORY: Chest pain. COMPARISON: 05/24/2017. TECHNIQUE: 2 views. FINDINGS: Lungs/Pleura: No focal opacities evident. No pleural effusion. No pneumothorax. Normal volumes. Mediastinum: Heart and mediastinal contours are unremarkable. Other: None. IMPRESSION: No acute cardiopulmonary abnormality. [facility] Referring Provider Line: [phone] SITE ID: [id number]
[2018-01-27 13:36] VITALS: BP 147/86
== END 2018-01-27 13:33 | disposition home or self-care (01) ==
LOC: EDUNIT# → ED 10:55
DX: F41.0 Panic disorder [episodic paroxysmal anxiety] (principal); D50.0 Iron deficiency anemia secondary to blood loss (chronic); R94.31 Abnormal electrocardiogram [ECG] [EKG]; I25.10 Atherosclerotic heart disease of native coronary artery without angina pectoris; I25.2 Old myocardial infarction; I10 Essential (primary) hypertension; Z95.5 Presence of coronary angioplasty implant and graft; Z87.891 Personal history of nicotine dependence; Z79.02 Long term (current) use of antithrombotics/antiplatelets
CPT/HCPCS: 36415; 71046; 80053; 83690; 84484; 85025; 93005; 99283; 99284; A9270

== ENCOUNTER 2018-01-28 17:00 | Outpatient (CLI) | payer MEDICAID | END 2018-01-28 17:01 | disposition short-term general hospital (02) | LOC: EMS 17:00 | PROVIDERS: ATTEND Surgery | DX: R07.9 Chest pain, unspecified (principal); F41.9 Anxiety disorder, unspecified | CPT/HCPCS: A0170; A0425; A0427 ==

== ENCOUNTER 2018-07-24 12:12 | Outpatient (CLI) | payer MEDICAID ==
[2018-07-24 17:45] LABS: BASOPHILS # (AUTO) 0.1 10^3/uL (0.0-0.1); BASOPHILS % (AUTO) 1.1 %; EOSINOPHILS # (AUTO) 0.1 10^3/uL (0.0-0.7); EOSINOPHILS % (AUTO) 1.1 %; HGB - HEMOGLOBIN 9.4 g/dL (14.0-18.0); LYMPHOCYTES # (AUTO) 0.8 10^3/uL (1.5-3.5); LYMPHOCYTES % (AUTO) 12.6 %; MEAN CORPUSCULAR HEMOGLOBIN 23.5 pg (27.0-31.0); MEAN CORPUSCULAR HGB CONC 30.8 g/dL (32.0-36.0); MEAN CORPUSCULAR VOLUME 76.3 fL (80.0-94.0); MEAN PLATELET VOLUME 9.1 fL (7.4-11.4); MONOCYTES # (AUTO) 0.5 10^3/uL (0.0-1.0); MONOCYTES % (AUTO) 8.3 %; NEUTROPHILS # (AUTO) 4.8 10^3/uL (1.5-6.6); NEUTROPHILS % (AUTO) 76.9 %; PLT - PLATELET COUNT 171 10^3/uL (130-450); RED BLOOD COUNT 3.99 10^6/uL (4.70-6.10); RED CELL DISTRIBUTION WIDTH 16.9 % (12.0-15.0); WHITE BLOOD COUNT 6.3 x10^3/uL (4.8-10.8)
[2018-07-24 18:09] LABS: ALBUMIN 4.2 g/dL (3.2-5.5); ALBUMIN/GLOBULIN RATIO 1.6 (1.0-2.2); BILIRUBIN,TOTAL 0.5 mg/dL (0.2-1.0); CALCIUM 9.5 mg/dL (8.5-10.3); TOTAL PROTEIN 6.9 g/dL (6.7-8.2)
== END 2018-07-24 12:13 | disposition home or self-care (01) ==
LOC: LAB.F 12:12
PROVIDERS: ATTEND Nurse Practitioner Family
DX: D64.9 Anemia, unspecified (principal)
CPT/HCPCS: 36415; 80053; 82728; 83540; 84466; 85025

== ENCOUNTER 2018-09-13 22:07 | Outpatient (CLI) | payer MEDICAID | END 2018-09-13 22:08 | disposition critical access hospital (66) | LOC: EMS 22:07 | PROVIDERS: ATTEND Surgery | DX: K62.5 Hemorrhage of anus and rectum (principal) | CPT/HCPCS: A0425; A0427; A0999 ==

== ENCOUNTER 2018-09-13 22:51 | Emergency (ER) | payer MEDICAID ==
[2018-09-13] MEDS ORDERED: SODIUM CHLORIDE 0.9% 1,000 ML IV ONE (22:59)
--- NOTE | 2018-09-13 23:30 | ED Physician Documentation ---
History of Present Illness - Stated complaint Stated Complaint: Bleeding Hemorrhoids - Chief complaint Chief Complaint: Abd Pain - History obtained from History obtained from: Patient - History of Present Illness Timing: How many weeks ago (4) Pain level now: 6 Improved by: nothing Worsened by: BM, sitting - Additonal information Additional information: c/o one month of worsening hemorrhoid pain. he says he saw PMD one month ago and was prescribed hydrocortisone cream and dibucaine but had no relief with the hydrocortisone and partial, transient relief with dibucaine (which he quicky ran out of). he changed PMDs and saw his new PMD today, was prescribed ntg cream but he says it was too expensive when he went to fill it. he says he has also been using marijuana suppositories without improvement. BIBA, given fentanyl and zofran en route. he says he has an appointment with local surgeon at end of this month Review of Systems Constitutional: denies: Fever GI: reports: Other (trace blood earlier this afternoon when wiping after BM). denies: Abdominal Pain, Constipation, Diarrhea PD PAST MEDICAL HISTORY - Past Medical History Cardiovascular: Hypertension, Coronary artery disease, [place] Respiratory: None Endocrine/Autoimmune: None - Past Surgical History Past Surgical History: Yes Cardiovascular: Coronary stent - Present Medications Home Medications: Ambulatory Orders Medication Instructions Recorded Confirmed Atorvastatin [Lipitor] 80 mg PO DAILY 01/10/17 05/24/17 Carvedilol 1 tab PO BID 01/10/17 05/24/17 Clopidogrel [Plavix] 1 tab PO DAILY 01/10/17 05/24/17 Lisinopril 1 tab PO DAILY 01/10/17 05/24/17 Spironolactone 12.5 mg PO DAILY 01/10/17 05/24/17 raNITIdine [Zantac] 150 mg PO DAILY 05/24/17 05/24/17 ALPRAZolam [Alprazolam] 0.5 - 1 mg PO TID PRN #20 tablet 01/20/18 Alprazolam [Xanax] 0.5 - 1 mg PO Q6HR PRN #15 tablet 01/27/18 Ferrous Sulfate 325 mg PO DAILY #30 tablet 01/27/18 Acetaminophen/Cod 300/30 [Tylenol 1 - 2 each PO Q6HR PRN #20 tablet 09/14/18 #3] - Allergies Allergies/Adverse Reactions: Allergies Allergy/AdvReac Type Severity Reaction Status Date / Time ibuprofen Allergy Nausea Verified 03/24/17 13:07 - Social History Does the pt smoke?: No Smoking Status: Former smoker Does the pt drink ETOH?: No Does the pt have substance abuse?: Yes - Immunizations Immunizations are current?: No Immunizations: TDAP >10years/unknown - POLST Patient has POLST: No PD ED PE NORMAL - Vitals Vital signs reviewed: Yes - General General: Alert and oriented X 3, No acute distress, Well developed/nourished - Abdomen Abdomen: Soft, Non tender PD ED PE EXPANDED - Rectal Rectal: Heme Occult Neg - QC+, Hemorrhoid (Firm hemorrhoid on right side (3 oclock position) that is mildly tender but reducible) Results - Vitals Vitals: Vital Signs - 24 hr 09/13/18 09/14/18 09/14/18 22:52 00:42 01:22 Temperature 36.0 C L Heart Rate 63 80 88 Respiratory 18 16 16 Rate Blood Pressure 135/91 H 136/91 H 136/82 H O2 Saturation 100 87 L 96 Oxygen O2 Source Room air PD MEDICAL DECISION MAKING - ED course Complexity details: considered differential, d/w patient ED course: Hemorrhoid is reducible at this time, does not currently appear thrombosed Departure - Departure Disposition: 01 Home, Self Care Clinical Impression: Hemorrhoids Condition: Good Instructions: ED Hemorrhoids Follow-Up: Dylon Hull MD [Primary Care Provider] - Prescriptions: Acetaminophen/Cod 300/30 [Tylenol #3] 1 - 2 each PO Q6HR PRN #20 tablet PRN Reason: Pain Discharge Date/Time: 09/14/18 01:30
[2018-09-14] MEDS ORDERED: MORPHINE 2 MG/ML CARPUJECT IVP STA (00:06)
[2018-09-14 01:24] VITALS: BP 136/82
== END 2018-09-14 01:30 | disposition home or self-care (01) ==
LOC: EDUNIT# → ED 22:51
DX: K64.9 Unspecified hemorrhoids (principal); I25.10 Atherosclerotic heart disease of native coronary artery without angina pectoris; I25.2 Old myocardial infarction; I10 Essential (primary) hypertension; Z87.891 Personal history of nicotine dependence
CPT/HCPCS: 96361; 96374; 99283

== ENCOUNTER 2018-09-17 03:03 | Outpatient (CLI) | payer MEDICAID | END 2018-09-17 03:04 | disposition critical access hospital (66) | LOC: EMS 03:03 | PROVIDERS: ATTEND Surgery | DX: K64.9 Unspecified hemorrhoids (principal) | CPT/HCPCS: A0425; A0429 ==

== ENCOUNTER 2018-09-17 03:26 | Emergency (ER) | payer MEDICAID ==
--- NOTE | 2018-09-17 03:57 | ED Physician Documentation ---
History of Present Illness - Stated complaint Stated Complaint: HEMORRHOID - Chief complaint Chief Complaint: General - History obtained from History obtained from: Patient - History of Present Illness Timing: How many weeks ago (4-5 weeks) Pain level max: >10 Pain level now: 10 Improved by: nothing Worsened by: BM, palpation - Additonal information Additional information: c/o over one month of hemorrhoid pain. He was T+R few days ago from this ED for same. Also evaluated by two doctors in outpatient setting, has been prescribed several different medications including topical steroid, topical anesthetic, and nitroglycerin ointment (he did not fill this last medication due to exorbitant cost). He has been getting some relief with the Tylenol #3 I prescribed on recent ED visit, but pain became severe tonight and BIBA for this pain. Has appointment with surgery at the end of this month. Review of Systems Constitutional: denies: Fever GI: denies: Abdominal Pain PD PAST MEDICAL HISTORY - Past Medical History Past Medical History: Yes Cardiovascular: Hypertension, Coronary artery disease, [place] Respiratory: None Endocrine/Autoimmune: None - Past Surgical History Past Surgical History: Yes Cardiovascular: Coronary stent - Present Medications Home Medications: Ambulatory Orders Medication Instructions Recorded Confirmed Atorvastatin [Lipitor] 80 mg PO DAILY 01/10/17 05/24/17 Carvedilol 1 tab PO BID 01/10/17 05/24/17 Clopidogrel [Plavix] 1 tab PO DAILY 01/10/17 05/24/17 Lisinopril 1 tab PO DAILY 01/10/17 05/24/17 Spironolactone 12.5 mg PO DAILY 01/10/17 05/24/17 raNITIdine [Zantac] 150 mg PO DAILY 05/24/17 05/24/17 ALPRAZolam [Alprazolam] 0.5 - 1 mg PO TID PRN #20 tablet 01/20/18 Alprazolam [Xanax] 0.5 - 1 mg PO Q6HR PRN #15 tablet 01/27/18 Ferrous Sulfate 325 mg PO DAILY #30 tablet 01/27/18 Acetaminophen/Cod 300/30 [Tylenol 1 - 2 each PO Q6HR PRN #20 tablet 09/14/18 #3] Acetaminophen with Codeine 1 each PO Q6HR PRN #14 tablet 09/17/18 [Tylenol with Codeine #4 Tablet] - Allergies Allergies/Adverse Reactions: Allergies Allergy/AdvReac Type Severity Reaction Status Date / Time ibuprofen Allergy Nausea Verified 09/17/18 03:29 - Social History Does the pt smoke?: No Smoking Status: Never smoker Does the pt drink ETOH?: No Does the pt have substance abuse?: Yes - Immunizations Immunizations are current?: No Immunizations: TDAP >10years/unknown - POLST Patient has POLST: No PD ED PE NORMAL - Vitals Vital signs reviewed: Yes - General General: Alert and oriented X 3, No acute distress, Well developed/nourished - Abdomen Abdomen: Soft, Non tender PD ED PE EXPANDED - Rectal Rectal: Hemorrhoid, Other (small hemorrhoid right side (3 o'clock position) that is soft and reducible, minimally tender. ). No: Fissure Results - Vitals Vitals: Vital Signs - 24 hr 09/17/18 09/17/18 03:24 04:55 Temperature 36.0 C L Heart Rate 92 83 Respiratory 18 18 Rate Blood Pressure 123/64 122/74 O2 Saturation 100 98 Oxygen O2 Source Room air PD MEDICAL DECISION MAKING - ED course Complexity details: reviewed old records, considered differential, d/w patient ED course: The hemorrhoid is noticeably smaller compared to recent ED visit (I was the physician on duty at that time as well), and it is not firm and edematous as it was previously. It is easily reduced and without erythema or significant tenderness. He c/o episodic severe pain. He says he cannot tolerate vicodin or percocet due to side effect, but can take codeine or morphine. I explained that I do not feel PO morphine would be appropriate for hemorrhoid pain, but I will write for limited amount of Tylenol #4 to try to keep him comfortable until he can be seen by the surgeon. Departure - Departure Disposition: 01 Home, Self Care Clinical Impression: Hemorrhoids Qualifiers: Hemorrhoid type: unspecified Qualified Code(s): K64.9 - Unspecified hemorrhoids Condition: Good Instructions: ED Hemorrhoids Follow-Up: Dylon Hull MD [Primary Care Provider] - Prescriptions: Acetaminophen with Codeine [Tylenol with Codeine #4 Tablet] 1 each PO Q6HR PRN #14 tablet PRN Reason: Pain Comments: In addition to the medications you are already using for your hemorrhoids, you can also try tracey stark (Tucks medicated pads). Discharge Date/Time: 09/17/18 04:55
[2018-09-17 04:55] VITALS: BP 122/74
== END 2018-09-17 04:55 | disposition home or self-care (01) ==
LOC: EDUNIT# → ED 03:26
DX: K64.9 Unspecified hemorrhoids (principal); I10 Essential (primary) hypertension
CPT/HCPCS: 99283

== ENCOUNTER 2018-09-21 00:57 | Outpatient (CLI) | payer MEDICAID ==
[2018-09-21] MEDS ORDERED: LIDO GARGLE 30 ML BOTTLE ONE (10:32)
== END 2018-09-21 00:58 | disposition critical access hospital (66) ==
LOC: EMS 00:57
PROVIDERS: ATTEND Surgery
DX: R10.9 Unspecified abdominal pain (principal)
CPT/HCPCS: A0425; A0427; A0999; A9270

== ENCOUNTER 2018-09-21 01:18 | Inpatient (IN) | payer MEDICAID ==
[2018-09-21] MEDS ORDERED: LIDOCAINE OINTMENT 5% 35.44 GM TUBE TOP STA (01:39)
[2018-09-21 02:19] LABS: INR 1.2 (0.8-1.2); PT - PROTHROMBIN TIME 13.8 secs (9.9-12.6)
[2018-09-21 02:21] LABS: BASOPHILS % (AUTO) 0.6 %; EOSINOPHILS % (AUTO) 0.3 %; LYMPHOCYTES # (AUTO) 0.5 10^3/uL (1.5-3.5); LYMPHOCYTES % (AUTO) 6.5 %; MEAN CORPUSCULAR HEMOGLOBIN 23.9 pg (27.0-31.0); MEAN CORPUSCULAR HGB CONC 30.7 g/dL (32.0-36.0); MEAN CORPUSCULAR VOLUME 77.8 fL (80.0-94.0); MEAN PLATELET VOLUME 8.2 fL (7.4-11.4); MONOCYTES # (AUTO) 0.5 10^3/uL (0.0-1.0); NEUTROPHILS # (AUTO) 6.2 10^3/uL (1.5-6.6); NEUTROPHILS % (AUTO) 85.6 %; PLT - PLATELET COUNT 212 10^3/uL (130-450); RED BLOOD COUNT 2.43 10^6/uL (4.70-6.10); RED CELL DISTRIBUTION WIDTH 20.9 % (12.0-15.0); WHITE BLOOD COUNT 7.2 x10^3/uL (4.8-10.8)
[2018-09-21 02:25] LABS: HGB - HEMOGLOBIN 5.8 g/dL (14.0-18.0)
[2018-09-21 02:26] LABS: ALBUMIN 3.5 g/dL (3.2-5.5); ALBUMIN/GLOBULIN RATIO 1.2 (1.0-2.2); BILIRUBIN,TOTAL 0.5 mg/dL (0.2-1.0); CALCIUM 8.4 mg/dL (8.5-10.3); CREATININE 1.1 mg/dL (0.6-1.2); TOTAL PROTEIN 6.4 g/dL (6.7-8.2)
[2018-09-21 02:43] LABS: PLATELET ESTIMATE, MANUAL NORMAL (130-450,000) (NORMAL)
[2018-09-21] MEDS ORDERED: PANTOPRAZOLE 40 MG VIAL IVP STA (03:14)
--- NOTE | 2018-09-21 03:19 | ED Physician Documentation ---
PD HPI GI BLEED - Stated complaint Stated Complaint: RECTAL BLEED,ANAL FIssure - Chief complaint Chief Complaint: Abd Pain - History obtained from History obtained from: Patient - History of Present Illness Timing - onset: How many hours ago (12) Timing - duration: Hours (12) Timing - details: Gradual onset Pain level max: 3 Pain level now: 3 Severity Comments: mild Associated symptoms: Vomiting, Coffee ground emesis, Black/tarry stool Contributing factors: No: Sick contact, Bad food, Travel Improved by: No: Eating, Laying still Worsened by: No: Eating, Moving - Additional information Additional information: 58-year-old male reports 1 day of dark stools and dark emesis. Patient had episode of syncope in the bathroom while at home. Review of Systems Constitutional: reports: Reviewed and negative Eyes: reports: Reviewed and negative Ears: reports: Reviewed and negative Nose: reports: Reviewed and negative Throat: reports: Reviewed and negative Cardiac: reports: Reviewed and negative Respiratory: reports: Reviewed and negative GI: reports: Reviewed and negative : reports: Reviewed and negative Skin: reports: Reviewed and negative Musculoskeletal: reports: Reviewed and negative Neurologic: reports: Reviewed and negative Psychiatric: reports: Reviewed and negative Endocrine: reports: Reviewed and negative Immunocompromised: reports: Reviewed and negative PD PAST MEDICAL HISTORY - Past Medical History Past Medical History: Yes Cardiovascular: Hypertension, Coronary artery disease, [place] Respiratory: None Endocrine/Autoimmune: None - Past Surgical History Past Surgical History: Yes Cardiovascular: Coronary stent - Present Medications Home Medications: Ambulatory Orders Medication Instructions Recorded Confirmed Atorvastatin [Lipitor] 80 mg PO DAILY 01/10/17 05/24/17 Carvedilol 1 tab PO BID 01/10/17 05/24/17 Clopidogrel [Plavix] 1 tab PO DAILY 01/10/17 05/24/17 Lisinopril 1 tab PO DAILY 01/10/17 05/24/17 Spironolactone 12.5 mg PO DAILY 01/10/17 05/24/17 raNITIdine [Zantac] 150 mg PO DAILY 05/24/17 05/24/17 ALPRAZolam [Alprazolam] 0.5 - 1 mg PO TID PRN #20 tablet 01/20/18 Alprazolam [Xanax] 0.5 - 1 mg PO Q6HR PRN #15 tablet 01/27/18 Ferrous Sulfate 325 mg PO DAILY #30 tablet 01/27/18 Acetaminophen/Cod 300/30 [Tylenol 1 - 2 each PO Q6HR PRN #20 tablet 09/14/18 #3] Acetaminophen with Codeine 1 each PO Q6HR PRN #14 tablet 09/17/18 [Tylenol with Codeine #4 Tablet] - Allergies Allergies/Adverse Reactions: Allergies Allergy/AdvReac Type Severity Reaction Status Date / Time ibuprofen Allergy Nausea Verified 09/21/18 01:24 - Living Situation Living Situation: reports: With spouse/s.o. Living Arrangement: reports: At home - Social History Does the pt smoke?: No Smoking Status: Never smoker Does the pt drink ETOH?: No Does the pt have substance abuse?: Yes - Family History Family history: reports: Other (Reviewed and not pertinent) - Immunizations Immunizations are current?: No Immunizations: TDAP >10years/unknown - POLST Patient has POLST: No PD ED PE NORMAL - Vitals Vital signs reviewed: Yes - General General: Alert and oriented X 3, No acute distress - HEENT HEENT: PERRL - Neck Neck: Supple, no meningeal sign - Cardiac Cardiac: RRR, No murmur - Respiratory Respiratory: Clear bilaterally - Abdomen Abdomen: Normal bowel sounds, Soft, Non tender, Non distended - Rectal Rectal: Other (Dark stool, hemorrhoids) - Derm Derm: Warm and dry - Extremities Extremities: No deformity - Neuro Neuro: Alert and oriented X 3 - Psych Psych: Normal mood, Normal affect Results - Vitals Vitals: Vital Signs - 24 hr 09/21/18 09/21/18 09/21/18 01:21 02:32 03:37 Temperature 36.6 C Heart Rate 92 87 87 Respiratory 18 16 16 Rate Blood Pressure 117/87 H 102/48 L 130/84 H O2 Saturation 100 99 100 Oxygen O2 Source Room air - Labs Labs: Laboratory Tests 09/21/18 09/21/18 09/21/18 02:00 02:00 02:00 WBC 7.2 RBC 2.43 L Hgb 5.8 L* Hct 18.9 L* MCV 77.8 L MCH 23.9 L MCHC 30.7 L RDW 20.9 H Plt Count 212 MPV 8.2 Neut # (Auto) 6.2 Lymph # (Auto) 0.5 L Baxter # (Auto) 0.5 Eos # (Auto) 0.0 Baso # (Auto) 0.0 Absolute Nucleated RBC 0.00 Nucleated RBC % 0.0 Manual Slide Review Indicated Platelet Estimate NORMAL (130-450,000) RBC Morph Micro Appear 3+ HYPOCHROMASIA PT 13.8 H INR 1.2 Sodium 134 L Potassium 3.3 L Chloride 102 Carbon Dioxide 21 Anion Gap 11.0 BUN 57 H Creatinine 1.1 Estimated GFR (MDRD) 69 L Glucose 105 H Calcium 8.4 L Total Bilirubin 0.5 AST 23 ALT 25 Alkaline Phosphatase 51 Total Protein 6.4 L Albumin 3.5 Globulin 2.9 Albumin/Globulin Ratio 1.2 Blood Type Blood Type Recheck Antibody Screen Crossmatch IS Only 09/21/18 09/21/18 02:00 02:45 WBC RBC Hgb Hct MCV MCH MCHC RDW Plt Count MPV Neut # (Auto) Lymph # (Auto) Baxter # (Auto) Eos # (Auto) Baso # (Auto) Absolute Nucleated RBC Nucleated RBC % Manual Slide Review Platelet Estimate RBC Morph Micro Appear PT INR Sodium Potassium Chloride Carbon Dioxide Anion Gap BUN Creatinine Estimated GFR (MDRD) Glucose Calcium Total Bilirubin AST ALT Alkaline Phosphatase Total Protein Albumin Globulin Albumin/Globulin Ratio Blood Type O POSITIVE Blood Type Recheck O POSITIVE Antibody Screen NEGATIVE Crossmatch IS Only See Detail PD MEDICAL DECISION MAKING - ED course Complexity details: reviewed old records, reviewed results, re-evaluated patient, considered differential, d/w patient, d/w application packaging consultant ED course: 58-year-old male with history of gastritis presents with dark stools and dark vomit. Labs notable for low hemoglobin. Guaiac not performed due to poor test sensitivity and clear clinical history. Patient admitted for GI bleed. Transferred 2 units of blood. Departure - Departure Disposition: [facility] DC/Xfer Clinical Impression: GI bleed Qualifiers: GI bleed type/associated pathology: melena Qualified Code(s): K92.1 - Melena Anemia Qualifiers: Anemia type: unspecified type Qualified Code(s): D64.9 - Anemia, unspecified Condition: Serious Discharge Date/Time: 09/21/18 04:17
[2018-09-21] MEDS ORDERED: MORPHINE 2 MG/ML CARPUJECT IVP STA (03:33)
[2018-09-21] MEDS ORDERED: ONDANSETRON 4 MG/2 ML VIAL IVP PRN (03:49)
[2018-09-21] MEDS: SODIUM CHLORIDE FLUSH 0.9% 10 ML SYRINGE IVP PRN ×3 (04:46→13:32)
[2018-09-21] MEDS: MORPHINE 2 MG/ML CARPUJECT IVP PRN ×8 (04:46→22:51)
[2018-09-21] MEDS: SODIUM CHLORIDE 0.9% 1,000 ML IV SCH ×2 (04:55→22:14)
[2018-09-21] MEDS ORDERED: SODIUM CHLORIDE 0.9% 500 ML IV ONE (05:18)
--- NOTE | 2018-09-21 05:59 | HISTORY & PHYSICAL EXAMINATION ---
Chief Complaint - Chief Complaint Chief Complaint: dark stool and vomitus, anal pain History of Present Illness - History of Present Illness HPI Comment/Other: Patient is a 58 y/o male who presented to the ED with complain of anal pain. This is his third presentation to the ED today. He had an outpatient surgical appointment earlier in the day with the same complain. He was told he had anal fissures and prescribed a topical cream. However he felt his pain was unbearable so he came to the ED. He was initially prescribed tylenol #3 which he says gave him stomach upset. On the following presentation he was given tylenol #4 with minimal relief. At home he decided to sit in a warm bath. He reports passing out when he was getting out of the bath. When he came to, he had an episode of dark vomitus. This was followed by en episode of diarrhea which was equally dark in appearance. He denied it being black/tarry. He denies any alcohol consumption or NSAID use. He reports some dyspnea lately. He denies chest or abdominal pain. In the ED, work up included a CBC where he was found to have a hemoglobin of 5.9. As a result he is being admitted for further treatment. History - Past Medical History Cardiovascular: reports: Hypertension, Coronary artery disease, [place] Respiratory: reports: None Endocrine/Autoimmune: reports: None Psych: reports: Anxiety MRSA Hx?: No - Past Surgical History Cardiovascular: reports: Coronary stent - Family & Social History Family History: Mother: Alive and Well Family History Comment/Other: Father . Had CHF and emphysema Living arrangement: At home Living Situation: With spouse/s.o. - Substance History Use: Uses substance without health or social issues: Cannabis - POLST Patient has POLST: No Meds/Allgy - Home Medications Home Medications: Ambulatory Orders Medication Instructions Recorded Confirmed Atorvastatin [Lipitor] 80 mg PO DAILY 01/10/17 05/24/17 Carvedilol 1 tab PO BID 01/10/17 05/24/17 Clopidogrel [Plavix] 1 tab PO DAILY 01/10/17 05/24/17 Lisinopril 1 tab PO DAILY 01/10/17 05/24/17 Spironolactone 12.5 mg PO DAILY 01/10/17 05/24/17 raNITIdine [Zantac] 150 mg PO DAILY 05/24/17 05/24/17 ALPRAZolam [Alprazolam] 0.5 - 1 mg PO TID PRN #20 tablet 01/20/18 Alprazolam [Xanax] 0.5 - 1 mg PO Q6HR PRN #15 tablet 01/27/18 Ferrous Sulfate 325 mg PO DAILY #30 tablet 01/27/18 Acetaminophen/Cod 300/30 [Tylenol 1 - 2 each PO Q6HR PRN #20 tablet 09/14/18 #3] Acetaminophen with Codeine 1 each PO Q6HR PRN #14 tablet 09/17/18 [Tylenol with Codeine #4 Tablet] - Allergies Allergies/Adverse Reactions: Allergies Allergy/AdvReac Type Severity Reaction Status Date / Time ibuprofen Allergy Nausea Verified 09/21/18 01:24 Review of Systems - Constitutional Constitutional: denies: Fatigue, Fever, Chills, Weakness, Diaphoresis - Eyes Eyes: denies: Blurred vision, Field loss, Dipolpia - Ears, Nose & Throat Ears, Nose & Throat: denies: Ear pain, Nasal pain, Nasal obstruction, Nasal congestion, Sore throat - Cardiovascular Cariovascular: reports: Syncope. denies: Palpitations, Chest pain, Edema - Respiratory Respiratory: reports: SOB with exertion. denies: Cough, Sputum production, Wheezing, Hemoptysis, Orthopnea - Gastrointestinal Gastrointestinal: reports: Vomiting, Coffee grounds emesis, Other (anal pain). denies: Abdominal pain, Abdominal distention - Genitourinary Genitourinary: denies: Frequency, Urgency, Incontinence, Flank pain - Musculoskeletal Musculoskeletal: denies: Muscle pain, Back pain - Neurological Neurological: denies: General weakness, Headache, Numbness - Psychiatric Psychiatric: reports: Anxiety - Hematologic/Lymphatic Hematologic/Lymphatic: reports: Anemia Prior Level of Functionality: Normal/ Appropriate. Independent of activities of daily living Exam - Vital Signs Vital Signs: Vital Signs x48h Temp Pulse Pulse Resp BP BP Pulse Ox 09/21/18 05:33 36.9 C 88 18 114/67 09/21/18 05:27 36.9 C 92 20 113/68 09/21/18 04:33 37.2 C 98 20 131/78 H 100 09/21/18 03:37 87 16 130/84 H 100 09/21/18 02:32 87 16 102/48 L 99 09/21/18 01:21 36.6 C 92 18 117/87 H 100 - Physical Exam General Appearance: positive: Alert, Moderate distress, Other (appears pale) Eyes Bilateral: positive: Normal inspection, PERRL, EOMI ENT: negative: No signs of dehydration Neck: positive: Nml inspection, No JVD, Trachea midline Respiratory: positive: No respiratory distress, Breath sounds nml. negative: Wheezes, Rales, Rhonchi Cardiovascular: positive: Regular rate & rhythm. negative: JVD present Abdomen: positive: Non-tender, Nml bowel sounds, No distention, Guarding, Rebound Rectal: positive: Tenderness Back: positive: Nml inspection Sepsis Event Note (H) - Evaluation Current Stage of Sepsis: Ruled out Conclusion/Plan - Problem List (1) GI bleed Conclusion/Plan: Suspect Upper GI bleed Patient being transfused 2 units PRBC Serial H&H q6h X 3 Protonix 40mg IV bid NPO. IV hydration Hold lavix for now Will consult general surgery for possible endoscopy Qualifiers: GI bleed type/associated pathology: melena Qualified Code(s): K92.1 - Bruno na (2) Anemia Conclusion/Plan: Microcytic Likely 2/2 GI bleed Patient being transfused General surgery consulted for possible endoscopy Qualifiers: Anemia type: other cause Qualified Code(s): D64.9 - Anemia, unspecified (3) Hemorrhoids Conclusion/Plan: Continue using topical cream Qualifiers: Hemorrhoid type: unspecified Qualified Code(s): K64.9 - Unspecified hemorrhoids (4) Anal fissure Conclusion/Plan: Apply topical cream. (Tucks ointment) Pain management with morphine (5) Hypertension Conclusion/Plan: Continue carvedilol and lisinopril. Hold spironolactone for now while hydrating Qualifiers: Hypertension type: unspecified secondary hypertension Qualified Code(s): I15.9 - Secondary hypertension, unspecified; I15 - Secondary hypertension (6) CAD (coronary artery disease) Conclusion/Plan: s/p stents On carvedilol, lisinopril and atorvastatin Plavix held for now due to GI bleed and anemia Qualifiers: Coronary Disease-Associated Artery/Lesion type: unspecified vessel or lesion type (7) Anxiety Conclusion/Plan: On alprazolam - Lab Results Fish Bones: 09/21/18 02:00 09/21/18 02:00 Core Measures - Anticipated LOS I expect patient to be DC'd or transferred within 96 hours.: Yes - DVT/VTE - Prophylaxis VTE/DVT Device ordered at admit?: Yes VTE/DVT Prophylaxis med ordered at admit?: No Not Ordered - Medical Reason: Contraindicated (GI bleed. Hgb 5.9) - AMI - Statin at Admit Aspirin Prescribed on Admit: Yes
[2018-09-21] MEDS: SODIUM CHLORIDE FLUSH 0.9% 10 ML SYRINGE IVP SCH ×2 (08:11→15:54)
[2018-09-21] MEDS: LORazepam 0.5 MG TABLET PO PRN ×2 (09:24→20:03)
[2018-09-21] MEDS: LIDOCAINE OINTMENT 5% 35.44 GM TUBE TOP SCH ×4 (09:28→20:42)
--- NOTE | 2018-09-21 09:44 | CONSULTATION NOTE ---
Referring Provider Name of Referring Provider:: Dr. June Breen Consult Date: 09/21/18 Chief Complaint - Chief Complaint Chief Complaint: Anemia and melena with upper gastrointenstinal bleed suspected History of Present Illness - Admitted From Admitted From:: [facility] ED - History Obtained From Records Reviewed: Yes History obtained from: Patient and chart Exam Limitations: None History - Past Medical History Cardiovascular: reports: Hypertension, Coronary artery disease, [place] Respiratory: reports: None Endocrine/Autoimmune: reports: None Psych: reports: Anxiety MRSA Hx?: No - Past Surgical History Cardiovascular: reports: Coronary stent - Family & Social History Family History: Mother: Alive and Well Family History Comment/Other: Father . Had CHF and emphysema Living arrangement: At home Living Situation: With spouse/s.o. - Substance History Use: Uses substance without health or social issues: Cannabis - POLST Patient has POLST: No Meds/Allgy - Home Medications Home Medications: Ambulatory Orders Medication Instructions Recorded Confirmed Clopidogrel [Plavix] 75 mg PO DAILY 01/10/17 05/24/17 RX: Lisinopril 10 mg PO DAILY 01/10/17 05/24/17 Acetaminophen with Codeine 1 each PO Q6HR PRN #14 tablet 09/17/18 [Tylenol with Codeine #4 Tablet] Aspirin [Aspirin EC] 81 mg PO DAILY 09/21/18 Atorvastatin Calcium [Lipitor] 80 mg PO DAILY 09/21/18 Diltiazem 2% Cream 1 applic TOP .TID-QID 09/21/18 Gabapentin [Neurontin] 300 mg PO HS 09/21/18 Nitroglycerin [Rectiv] 1 applic RC BID 09/21/18 RX: PARoxetine HCl [Paroxetine HCl] 10 mg PO DAILY 09/21/18 Ranitidine HCl [Acid Payroll Clerk] 75 mg PO DAILY 09/21/18 - Allergies Allergies/Adverse Reactions: Allergies Allergy/AdvReac Type Severity Reaction Status Date / Time ibuprofen Allergy Nausea Verified 09/21/18 01:24 Review of Systems - Constitutional Constitutional: reports: Fatigue, Malaise - Eyes Eyes: denies: Pain - Ears, Nose & Throat Ears, Nose & Throat: denies: Ear pain - Cardiovascular Cariovascular: denies: Irregular heart rate, Palpitations, Chest pain - Gastrointestinal Gastrointestinal: reports: Diarrhea, Rectal bleeding, Black stools, Other (Rect al pain worsened with bowel movements.). denies: Abdominal pain - Genitourinary Genitourinary: denies: Dysuria - Integumentary Integumentary: denies: Rash - Neurological Neurological: denies: General weakness, Focal weakness Exam - Vital Signs Reviewed Vital Signs: Yes Vital Signs: Vital Signs x48h Temp Pulse Pulse Resp BP BP BP 09/21/18 07:53 36.7 C 92 18 117/62 09/21/18 05:47 36.8 C 92 18 122/76 09/21/18 05:33 36.9 C 88 18 114/67 09/21/18 05:27 36.9 C 92 20 113/68 09/21/18 04:33 37.2 C 98 20 131/78 H 09/21/18 03:37 87 16 130/84 H 09/21/18 02:32 87 16 102/48 L Pulse Ox 09/21/18 07:53 99 09/21/18 05:47 09/21/18 05:33 09/21/18 05:27 09/21/18 04:33 100 09/21/18 03:37 100 09/21/18 02:32 99 - Physical Exam General Appearance: positive: No acute distress Eyes Bilateral: positive: No lid inflammation, Conjunctivae nml, No scleral icterus ENT: positive: Dry mucous membranes Neck: positive: Trachea midline Respiratory: positive: Chest non-tender, No respiratory distress, Breath sounds nml Cardiovascular: positive: Regular rate & rhythm Abdomen: positive: Non-tender, Nml bowel sounds Rectal: positive: Other (I examined it yesterday finding a fissure at the 12 o'clock as well as a external hemorrhoids/skin tag at the 4 o'clock position. Additional rectal examination was NOT done as it would have been EXTREMELY painful and unrewarding.) Skin: positive: Pallor Extremities: positive: Non-tender, Nml appearance Neurologic/Psychiatric: positive: Oriented x3 Conclusion/Plan - Diagnosis Diagnosis: Anemia and melena with upper gastrointestinal bleed as the presumed source - Plan Plan: Esophagogastroduodenoscopy with possible biopsies and/or polypectomies. Indications, procedure, alternatives (such as barium studies and even no procedure at all) and risks including but not limited to perforation requiring operative repair, bleeding with its risks, and were fully explained to her. Conscious sedation was discussed at length with him as were its risks including but not limited to loss of airway, aspiration, respiratory depression, and not enough relief of pain and anxiety. I explained that his posterior oropharynx would also be anesthetized for the procedure. I explained that MAC anesthesia is associated with a higher incidence of intestinal perforation. Review of his history does not reveal any significant systemic disease that would contraindicate use of conscious sedation or MAC anesthesia. All questions were fully answered. Verbal and written consent was obtained. The patient in preparation for his esophagogastroduodenoscopy will be n.p.o. 45 minutes of [id number] time spent with the patient the majority of which was spent in discussion, coordination of their care, and completion of the requisite paperwork [employer] disclaimer: This document was created in part using voice recognition technology. Because of the inherent limitations of the system ([employer]'s [employer] user manual states that the licensee understands that speech recognition is a statistical process and that recognition errors are inherent in the process), occasional same sounding word substitutions and grammatical errors do occur and persist despite proofreading. Please read this document for context. - Lab Results Lab results reviewed: Yes Keenan Bones: 09/21/18 02:00 09/21/18 02:00
[2018-09-21] MEDS ORDERED: LIDOCAINE-MPF 2% 5 ML VIAL IM ONE (10:00)
[2018-09-21] MEDS ORDERED: PROPOFOL 200 MG/20 ML VIAL IVP ONE (10:00)
[2018-09-21] MEDS ORDERED: GLYCOPYRROLATE 1 MG/5 ML VIAL IVP ONE (10:00)
[2018-09-21] MEDS ORDERED: KETAMINE 500 MG/10 ML VIAL IVP ONE (10:00)
[2018-09-21] MEDS ORDERED: MIDAZOLAM 2 MG/2 ML VIAL IVP ONE (10:00)
--- NOTE | 2018-09-21 10:01 | ANESTHESIA ---
Pre-Anesthesia VS, & Labs - Diagnosis Diagnosis Anemia and melena with upper gastrointestinal bleed as the presumed source - Procedure EGD Vital Signs: Temp Pulse Resp BP Pulse Ox 36.7 C 92 18 117/62 99 09/21/18 07:53 09/21/18 07:53 09/21/18 07:53 09/21/18 07:53 09/21/18 07:53 Height 5 ft 8 in Weight (kg) 60.5 kg Body Mass Index 20.2 - NPO >8 hours - Lab Results Current Lab Results: Laboratory Tests 09/21/18 02:45: Blood Type O POSITIVE, Antibody Screen NEGATIVE, Crossmatch IS Only See Detail 09/21/18 02:00: Blood Type Recheck O POSITIVE 09/21/18 02:00: Sodium 134 L, Potassium 3.3 L, Chloride 102, Carbon Dioxide 21, Anion Gap 11.0, BUN 57 H, Creatinine 1.1, Estimated GFR (MDRD) 69 L, Glucose 105 H, Calcium 8.4 L, Total Bilirubin 0.5, AST 23, ALT 25, Alkaline Phosphatase 51, Total Protein 6.4 L, Albumin 3.5, Globulin 2.9, Albumin/Globulin Ratio 1.2 09/21/18 02:00: PT 13.8 H, INR 1.2 09/21/18 02:00: WBC 7.2, RBC 2.43 L, Hgb 5.8 L*, Hct 18.9 L*, MCV 77.8 L, MCH 23.9 L, MCHC 30.7 L, RDW 20.9 H, Plt Count 212, MPV 8.2, Neut # (Auto) 6.2, Lymph # (Auto) 0.5 L, [place] # (Auto) 0.5, Eos # (Auto) 0.0, Baso # (Auto) 0.0, Absolute Nucleated RBC 0.00, Nucleated RBC % 0.0, Manual Slide Review Indicated, Platelet Estimate NORMAL (130-450,000), RBC Morph Micro Appear 3+ HYPOCHROMASIA Lab results reviewed: Yes Fish Bones: 09/21/18 02:00 09/21/18 02:00 Home Medications and Allergies Home Medications: Ambulatory Orders Aspirin [Aspirin EC] 81 mg PO DAILY 09/21/18 Atorvastatin Calcium [Lipitor] 80 mg PO DAILY 09/21/18 Diltiazem 2% Cream 1 applic TOP .TID-QID 09/21/18 Gabapentin [Neurontin] 300 mg PO HS 09/21/18 Nitroglycerin [Rectiv] 1 applic RC BID 09/21/18 PARoxetine HCl [Paroxetine HCl] 10 mg PO DAILY 09/21/18 Ranitidine HCl [Acid Conveyor Monitor] 75 mg PO DAILY 09/21/18 Active Medications Sodium Chloride (Normal Saline 0.9%) 1,000 mls @ 100 mls/hr IV .Q10H [facility] Last Infusion: 09/21/18 05:50 Dose: 0 mls/hr Lidocaine (Xylocaine Ointment 5%) 1 applic TOP QID [facility] Last Admin: 09/21/18 09:28 Dose: 1 applic Lorazepam (Ativan) 0.5 mg PO Q6H PRN PRN Reason: Anxiety Last Admin: 09/21/18 09:24 Dose: 0.5 mg Morphine Sulfate (Morphine (Carpuject)) 2 mg IVP Q2HR PRN PRN Reason: Pain 8 to 10 Last Admin: 09/21/18 09:25 Dose: 2 mg Ondansetron HCl (Zofran Inj) 4 mg IVP Q6HR PRN PRN Reason: Nausea / Vomiting Pantoprazole Sodium (Protonix) 40 mg IVP Q12H [facility] Sodium Chloride (Normal Saline Flush 0.9%) 10 ml IVP PRN PRN PRN Reason: NEEDED PER PROVIDER ORDERS Last Admin: 09/21/18 07:31 Dose: 10 ml Sodium Chloride (Normal Saline Flush 0.9%) 10 ml IVP 0100,0900,1700 [facility] Last Admin: 09/21/18 08:11 Dose: Not Given Clopidogrel [Plavix] 75 mg PO DAILY 01/10/17 Lisinopril 10 mg PO DAILY 01/10/17 Aspirin [Aspirin EC] 81 mg PO DAILY 09/21/18 Atorvastatin Calcium [Lipitor] 80 mg PO DAILY 09/21/18 Diltiazem 2% Cream 1 applic TOP .TID-QID 09/21/18 Gabapentin [Neurontin] 300 mg PO HS 09/21/18 Nitroglycerin [Rectiv] 1 applic RC BID 09/21/18 PARoxetine HCl [Paroxetine HCl] 10 mg PO DAILY 09/21/18 Ranitidine HCl [Acid Conveyor Monitor] 75 mg PO DAILY 09/21/18 Allergies/Adverse Reactions: Allergies Allergy/AdvReac Type Severity Reaction Status Date / Time ibuprofen Allergy Nausea Verified 09/21/18 01:24 Anes History & Medical History - Anesthetic History Anesthesia Complications: reports: No previous complications Family history of Anesthesia Complications: Denies Family history of Malignant Hyperthermia: Denies - Medical History Cardiovascular: reports: Hypertension, Coronary artery disease, [place] Pulmonary: reports: None Endocrine/Autoimmune: reports: None Smoking Status: Current every day smoker - Surgical History Cardiothoracic: Coronary stent Exam General: Alert, Oriented x3, Cooperative Mouth Openin Fingerbreadth Neck Mobility: Normal Mallampati classification: II Thyromental Distance: less than 4 cm Respiratory: Lungs clear Cardiovascular: Regular rate Neurological: Normal speech Mental/Cognitive Status: Alert/Oriented X3, Normal for patient Plan Anesthesia Type: MAC Consent for Procedure(s) Verified and Reviewed: Yes Code Status: Attempt Resuscitation ASA classification: 3-Severe systemic disease Is this case an emergency?: Yes
[2018-09-21] MEDS ORDERED: LACTATED RINGERS 1,000 ML IV ONE (10:25)
[2018-09-21] MEDS ORDERED: EPINEPHrine 1 MG/ML AMP ONE (10:48)
[2018-09-21] MEDS ORDERED: SODIUM CHLORIDE 0.9% 10 ML ONE (10:48)
[2018-09-21 12:23] LABS: MUDS CUTOFF CONCENTRATIONS CUTOFF CONC BELOW:
[2018-09-21 12:41] LABS: AMPHETAMINE SCREEN,URINE NEGATIVE (NEGATIVE); BENZODIAZEPINES SCREEN, URINE NEGATIVE (NEGATIVE); COCAINE SCREEN URINE NEGATIVE (NEGATIVE); METHADONE SCREEN, URINE NEGATIVE (NEGATIVE); METHAMPHETAMINES SCREEN, URINE NEGATIVE (NEGATIVE); OPIATE SCREEN, URINE POSITIVE (NEGATIVE); OXYCODONE SCREEN, URINE NEGATIVE (NEGATIVE); PROPOXYPHENE SCREEN, URINE NEGATIVE (NEGATIVE); TRICYCLIC ANTIDEPRESSANT,URINE NEGATIVE (NEGATIVE)
[2018-09-21 13:53] LABS: HGB - HEMOGLOBIN 7.5 g/dL (14.0-18.0)
[2018-09-21] MEDS: PANTOPRAZOLE 40 MG VIAL IVP SCH (15:54)
[2018-09-21 15:58] LABS: HGB - HEMOGLOBIN 7.4 g/dL (14.0-18.0)
[2018-09-21 22:15] LABS: HGB - HEMOGLOBIN 6.4 g/dL (14.0-18.0)
[2018-09-22] MEDS ORDERED: SODIUM CHLORIDE 0.9% 500 ML IV ONE (00:15)
[2018-09-22] MEDS: SODIUM CHLORIDE FLUSH 0.9% 10 ML SYRINGE IVP SCH ×4 (00:19→23:41)
[2018-09-22] MEDS: SODIUM CHLORIDE 0.9% 1,000 ML IV SCH (00:20)
[2018-09-22] MEDS: SODIUM CHLORIDE FLUSH 0.9% 10 ML SYRINGE IVP PRN ×2 (00:40→02:48)
[2018-09-22] MEDS: MORPHINE 2 MG/ML CARPUJECT IVP PRN ×8 (00:45→23:42)
[2018-09-22] MEDS ORDERED: MIN OIL/DIMETHICON/COCONUT OIL 92 GM TUBE TOP PRN (03:32)
[2018-09-22] MEDS ORDERED: A & D OINTMENT 5 GM PACKET TOP PRN (03:32)
[2018-09-22] MEDS: DOCUSATE SODIUM 250 MG CAPSULE PO SCH ×2 (05:13→09:05)
[2018-09-22] MEDS: PANTOPRAZOLE 40 MG VIAL IVP SCH ×2 (05:13→16:52)
[2018-09-22 05:22] LABS: BASOPHILS # (AUTO) 0.1 10^3/uL (0.0-0.1); EOSINOPHILS # (AUTO) 0.1 10^3/uL (0.0-0.7); EOSINOPHILS % (AUTO) 0.8 %; HGB - HEMOGLOBIN 7.8 g/dL (14.0-18.0); LYMPHOCYTES # (AUTO) 1.3 10^3/uL (1.5-3.5); LYMPHOCYTES % (AUTO) 19.5 %; MEAN CORPUSCULAR HEMOGLOBIN 26.5 pg (27.0-31.0); MEAN CORPUSCULAR HGB CONC 32.2 g/dL (32.0-36.0); MEAN CORPUSCULAR VOLUME 82.4 fL (80.0-94.0); MEAN PLATELET VOLUME 8.3 fL (7.4-11.4); MONOCYTES # (AUTO) 0.6 10^3/uL (0.0-1.0); MONOCYTES % (AUTO) 9.2 %; NEUTROPHILS # (AUTO) 4.6 10^3/uL (1.5-6.6); NEUTROPHILS % (AUTO) 69.5 %; PLT - PLATELET COUNT 151 10^3/uL (130-450); RED BLOOD COUNT 2.92 10^6/uL (4.70-6.10); RED CELL DISTRIBUTION WIDTH 17.8 % (12.0-15.0); WHITE BLOOD COUNT 6.6 x10^3/uL (4.8-10.8)
[2018-09-22 05:34] LABS: CALCIUM 8.4 mg/dL (8.5-10.3); CREATININE 0.9 mg/dL (0.6-1.2)
[2018-09-22 05:48] LABS: PLATELET ESTIMATE, MANUAL NORMAL (130-450,000) (NORMAL)
[2018-09-22] MEDS: LIDOCAINE OINTMENT 5% 35.44 GM TUBE TOP SCH ×4 (08:14→20:49)
--- NOTE | 2018-09-22 08:49 | PROVIDER PROGRESS NOTE ---
Subjective - Prog Note Date Prog Note Date: 09/22/18 Prog Note Time: 08:49 - Subjective Pt reports feeling: No change Subjective: Missael complains of ongoing anal discomfort and requests additional pain medication. He refuses the sitz baths and claims that "nothing is going to help, so he might as well wait for surgery". He denies chest pain, chest pressure, rashes, shortness of breath, vomiting, diarrhea, or a new cough. Current Medications - Current Medications Current Medications: Active Medications: Atorvastatin Calcium (Lipitor) 80 mg PO QPM [facility] Docusate Sodium (Colace 250mg Capsule) 250 - 500 mg PO DAILY [facility] Hydrocortisone (Hydrocortisone) 1 applic TOP TID [facility] Sodium Chloride (Normal Saline 0.9%) 1,000 mls @ 50 mls/hr IV .Q20H [facility] Lactulose (Enulose) 20 gm PO ONCE ONE Lidocaine (Xylocaine Ointment 5%) 1 applic TOP QID [facility] Lisinopril (Zestril) 10 mg PO DAILY [facility] Lorazepam (Ativan) 0.5 mg PO Q6H PRN Mineral Oil (Cavilon) 1 applic TOP PRN PRN Morphine Sulfate (Morphine (Carpuject)) 2 mg IVP Q2HR PRN Ondansetron HCl (Zofran Inj) 4 mg IVP Q6HR PRN Pantoprazole Sodium (Protonix) 40 mg IVP Q12H [facility] Paroxetine HCl (Paxil) 10 mg PO DAILY [facility] Polyethylene Glycol (Miralax) 17 gm PO DAILY [facility] Senna (Senokot) 8.6 - 17.2 mg PO DAILY [facility] Senna (Senokot) 17.2 - 25.8 mg PO Q6H [facility] Sucralfate (Carafate) 1 gm PO 0700,1100,1600,2200 [facility] Vitamin A/Vitamin D (Vitamin A & D Ointment) 1 applic TOP PRN PRN HOME meds: Clopidogrel [Plavix] 75 mg PO DAILY 01/10/17 Lisinopril 10 mg PO DAILY 01/10/17 Aspirin [Aspirin EC] 81 mg PO DAILY 09/21/18 Atorvastatin Calcium [Lipitor] 80 mg PO DAILY 09/21/18 Diltiazem 2% Cream 1 applic TOP .TID-QID 09/21/18 Nitroglycerin [Rectiv] 1 applic RC BID 09/21/18 PARoxetine HCl [Paroxetine HCl] 10 mg PO DAILY 09/21/18 Ranitidine HCl [Acid Sergeant Missile Crewman] 75 mg PO DAILY 09/21/18 Objective - Vital Signs/Intake & Output Reviewed Vital Signs: Yes Vital Signs: Vital Signs x48h Temp Pulse Pulse Resp BP BP BP 09/22/18 07:57 36.9 C 92 20 124/83 H 09/22/18 03:45 36.7 C 77 77 18 129/75 129/75 09/22/18 01:05 37.2 C 73 18 113/58 L Pulse Ox 09/22/18 07:57 98 09/22/18 03:45 98 09/22/18 01:05 Intake & Output: Intake & Output 09/19/18 09/20/18 09/21/18 09/22/18 23:59 23:59 23:59 23:59 Intake Total 1498.334 960 Output Total 1505 425 Balance -6.666 535 - Objective General Appearance: positive: Alert, Mild distress, Anxious Eyes Bilateral: positive: PERRL Eyes: OU Conjunctivae pale ENT: positive: Pharynx nml, Dry mucous membranes Neck: positive: Thyroid nml, No JVD Respiratory: positive: Chest non-tender, No respiratory distress, Breath sounds nml Cardiovascular: positive: Regular rate & rhythm, No gallop, Systolic murmur Peripheral Pulses: 1+ Radial (R), 1+ Radial (L) Abdomen: positive: Non-tender, Nml bowel sounds, Other (rounded, firm) Back: positive: Nml inspection Skin: positive: No rash, Warm, Dry Extremities: positive: Non-tender, Full ROM, Pedal edema Neurologic/Psychiatric: positive: Oriented x3, CN's nml (2-12), Motor nml, Sen sation nml, Depressed mood/affect Reflexes: Bicep (R): 3+, Bicep (L): 3+ - Lab Results Fish Bones: 09/22/18 13:50 09/22/18 05:03 Other Labs: Lab Results x24hrs 09/22/18 09/22/18 09/21/18 Range/Units 05:03 05:03 22:05 WBC 6.6 (4.8-10.8) x10^3/uL RBC 2.92 L (4.70-6.10) 10^6/uL Hgb 7.8 L 6.4 L* (14.0-18.0) g/dL Hct 24.1 L 20.4 L (42.0-52.0) % MCV 82.4 (80.0-94.0) fL MCH 26.5 L (27.0-31.0) pg MCHC 32.2 (32.0-36.0) g/dL RDW 17.8 H (12.0-15.0) % Plt Count 151 (130-450) 10^3/uL MPV 8.3 (7.4-11.4) fL Neut # (Auto) 4.6 (1.5-6.6) 10^3/uL Lymph # (Auto) 1.3 L (1.5-3.5) 10^3/uL [place] # (Auto) 0.6 (0.0-1.0) 10^3/uL Eos # (Auto) 0.1 (0.0-0.7) 10^3/uL Baso # (Auto) 0.1 (0.0-0.1) 10^3/uL Absolute Nucleated RBC 0.00 x10^3/uL Nucleated RBC % 0.0 /100WBC Manual Slide Review Indicated Platelet Estimate NORMAL (130-450,000) (NORMAL) RBC Morph Micro Appear 1+ POIKILOCYTOSIS (NORMAL) Sodium 137 (135-145) mmol/L Potassium 3.5 (3.5-5.0) mmol/L Chloride 107 (101-111) mmol/L Carbon Dioxide 25 (21-32) mmol/L Anion Gap 5.0 L (6-13) BUN 26 H (6-20) mg/dL Creatinine 0.9 (0.6-1.2) mg/dL Estimated GFR (MDRD) 86 L (>89) Glucose 91 (70-100) mg/dL Calcium 8.4 L (8.5-10.3) mg/dL Troponin I (<0.49) ng/mL Urine Opiates Screen (NEGATIVE) Ur Oxycodone Screen (NEGATIVE) Urine Methadone Screen (NEGATIVE) Ur Propoxyphene Screen (NEGATIVE) Ur Barbiturates Screen (NEGATIVE) Ur Tricyclics Screen (NEGATIVE) Ur Phencyclidine Scrn (NEGATIVE) Ur Amphetamine Screen (NEGATIVE) U Methamphetamines Scrn (NEGATIVE) U Benzodiazepines Scrn (NEGATIVE) Urine Cocaine Screen (NEGATIVE) U Cannabinoids Screen (NEGATIVE) Blood Type Antibody Screen Crossmatch IS Only 09/21/18 09/21/18 09/21/18 Range/Units 15:53 13:42 13:42 WBC (4.8-10.8) x10^3/uL RBC (4.70-6.10) 10^6/uL Hgb 7.4 L 7.5 L (14.0-18.0) g/dL Hct 23.0 L 23.2 L (42.0-52.0) % MCV (80.0-94.0) fL MCH (27.0-31.0) pg MCHC (32.0-36.0) g/dL RDW (12.0-15.0) % Plt Count (130-450) 10^3/uL MPV (7.4-11.4) fL Neut # (Auto) (1.5-6.6) 10^3/uL Lymph # (Auto) (1.5-3.5) 10^3/uL [place] # (Auto) (0.0-1.0) 10^3/uL Eos # (Auto) (0.0-0.7) 10^3/uL Baso # (Auto) (0.0-0.1) 10^3/uL Absolute Nucleated RBC x10^3/uL Nucleated RBC % /100WBC Manual Slide Review Platelet Estimate (NORMAL) RBC Morph Micro Appear (NORMAL) Sodium (135-145) mmol/L Potassium (3.5-5.0) mmol/L Chloride (101-111) mmol/L Carbon Dioxide (21-32) mmol/L Anion Gap (6-13) BUN (6-20) mg/dL Creatinine (0.6-1.2) mg/dL Estimated GFR (MDRD) (>89) Glucose (70-100) mg/dL Calcium (8.5-10.3) mg/dL Troponin I < 0.04 (<0.49) ng/mL Urine Opiates Screen (NEGATIVE) Ur Oxycodone Screen (NEGATIVE) Urine Methadone Screen (NEGATIVE) Ur Propoxyphene Screen (NEGATIVE) Ur Barbiturates Screen (NEGATIVE) Ur Tricyclics Screen (NEGATIVE) Ur Phencyclidine Scrn (NEGATIVE) Ur Amphetamine Screen (NEGATIVE) U Methamphetamines Scrn (NEGATIVE) U Benzodiazepines Scrn (NEGATIVE) Urine Cocaine Screen (NEGATIVE) U Cannabinoids Screen (NEGATIVE) Blood Type Antibody Screen Crossmatch IS Only 09/21/18 09/21/18 Range/Units 10:20 02:45 WBC (4.8-10.8) x10^3/uL RBC (4.70-6.10) 10^6/uL Hgb (14.0-18.0) g/dL Hct (42.0-52.0) % MCV (80.0-94.0) fL MCH (27.0-31.0) pg MCHC (32.0-36.0) g/dL RDW (12.0-15.0) % Plt Count (130-450) 10^3/uL MPV (7.4-11.4) fL Neut # (Auto) (1.5-6.6) 10^3/uL Lymph # (Auto) (1.5-3.5) 10^3/uL [place] # (Auto) (0.0-1.0) 10^3/uL Eos # (Auto) (0.0-0.7) 10^3/uL Baso # (Auto) (0.0-0.1) 10^3/uL Absolute Nucleated RBC x10^3/uL Nucleated RBC % /100WBC Manual Slide Review Platelet Estimate (NORMAL) RBC Morph Micro Appear (NORMAL) Sodium (135-145) mmol/L Potassium (3.5-5.0) mmol/L Chloride (101-111) mmol/L Carbon Dioxide (21-32) mmol/L Anion Gap (6-13) BUN (6-20) mg/dL Creatinine (0.6-1.2) mg/dL Estimated GFR (MDRD) (>89) Glucose (70-100) mg/dL Calcium (8.5-10.3) mg/dL Troponin I (<0.49) ng/mL Urine Opiates Screen POSITIVE H (NEGATIVE) Ur Oxycodone Screen NEGATIVE (NEGATIVE) Urine Methadone Screen NEGATIVE (NEGATIVE) Ur Propoxyphene Screen NEGATIVE (NEGATIVE) Ur Barbiturates Screen NEGATIVE (NEGATIVE) Ur Tricyclics Screen NEGATIVE (NEGATIVE) Ur Phencyclidine Scrn NEGATIVE (NEGATIVE) Ur Amphetamine Screen NEGATIVE (NEGATIVE) U Methamphetamines Scrn NEGATIVE (NEGATIVE) U Benzodiazepines Scrn NEGATIVE (NEGATIVE) Urine Cocaine Screen NEGATIVE (NEGATIVE) U Cannabinoids Screen POSITIVE H (NEGATIVE) Blood Type O POSITIVE Antibody Screen NEGATIVE Crossmatch IS Only See Detail ABX Reporting Has patient been on IV antibiotics over the past 48 hours?: No Sepsis Event Note (H) - Evaluation Current Stage of Sepsis: Ruled out Assessment/Plan - Problem List (1) Gastric ulcer Impression: On 09/21/18 the patient underwent a EGD with epinephrine injections where acute b leeding was found. A small ulcer was appreciated at the pylorus. Blood was found in the esophagus, in the duodenum, and the duodenal bulb. He required one more unit of blood overnight since his H/H keeps dropping. He is symptomatic with his main complaint being dizziness and fatigue. He is also found to be hypotensive with his last blood pressure at 94/50. He has been on high dose Protonix, and Carafate started today. Imaging shows a large stool volume within his bowels. Plan: Continue to monitor for bleeding, continue PPI, carafate QID, encourage BMs. Contact GI if there is evidence of re-bleeding such as vomiting blood. Qualifiers: Gastric ulcer complication status: with hemorrhage (2) Hemorrhoids Impression: The patient was seen outpatient for his anal fissures with an unknown cause. On exam today by Dr. Fair, it now appears as if the main culprit is a hemorrhoid. This remains the patient's primary complaint. Plan: Sitz baths TID, hydrocortizone cream after the sitz, pain meds and encouraged BMs. Qualifiers: Hemorrhoid type: unspecified Qualified Code(s): K64.9 - Unspecified hemorrhoids (3) Acute blood loss anemia Impression: The patient has a baseline hemoglobin between 9-12, and it has been as low as 5.8 on admission. He has gotten a total of 3 unit so PRBCs and his hemoglobin is 7.3. Plan: Continue to monitor for bleeding, transfuse if hemoglobin becomes 7 or less, or by symptoms. Daily labs. (4) Constipation Impression: An abdominal CT was completed today for ongoing complaints of constipation, and prostate pain. Imaging showed a moderate amount of stool and the patient was given a one time dose of Mag citrate- BUT he refused. The complicating factor in this is that his very tender hemorrhoid may be the main culprit of this cond ition. He will not be able to tolerate an enema, so we will continue to add oral agents and encourage meals. Plan: Continue to monitor, encourage ambulation. Qualifiers: Constipation type: slow transit constipation Qualified Code(s): K59.01 - Slow transit constipation (5) Ischemic cardiomyopathy Impression: The patient is prescribed Plavix, ASA, MARIYA inhibitor, and high dose statin at home. The ASA and Plavix have remained on hold since admission. His lisinopril was resumed today and he remains on the statin. He denies chest pain on exam. Plan: Ensure a resolution of bleeding before resuming ASA and Plavix. D/C telemetry.
[2018-09-22] MEDS ORDERED: SODIUM CHLORIDE 0.9% 1,000 ML IV SCH (08:51)
--- NOTE | 2018-09-22 08:54 | PROVIDER PROGRESS NOTE ---
Assessment/Plan - Problem List (1) GI bleed Qualifiers: GI bleed type/associated pathology: gastric ulcer Qualified Code(s): K25.4 - Chronic or unspecified gastric ulcer with hemorrhage Assessment/Plan: Clinically stable with no signs of active/recurrent GI bleeding; decrease in H/H last night likely due to equilibration/hydration. Rec: continue high dose PPI therapy, observation; resume diet as tolerated. await MARTIN test and treat for H. pylori if +. 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 May be associated with inflamed hemorrhoids, doubt neoplasm; REc: sitz baths TID, topical hydrocortisone, high fiber diet, laxatives; exam under anesthesia/surgical intervention if not improved over next 48 hours. - Current Meds Current Meds: Current Medications Generic Name Dose Route Start Last Admin Trade Name Freq PRN Reason Stop Dose Admin Docusate Sodium 250 - 500 mg 09/22/18 04:00 09/22/18 05:13 Colace 250mg Capsule PO 250 mg DAILY SHIRLEY Administration Lidocaine 1 applic 09/21/18 09:00 09/22/18 08:14 Xylocaine Ointment 5% TOP Not Given QID SHIRLEY Lorazepam 0.5 mg 09/21/18 08:38 09/21/18 20:03 Ativan PO 0.5 mg Q6H PRN Administration Anxiety Morphine Sulfate 2 mg 09/21/18 03:49 09/22/18 07:55 Morphine (Carpuject) IVP 2 mg Q2HR PRN Administration Pain 8 to 10 Ondansetron HCl 4 mg 09/21/18 03:49 09/22/18 00:40 Zofran Inj IVP 4 mg Q6HR PRN Administration Nausea / Vomiting Pantoprazole Sodium 40 mg 09/21/18 16:00 09/22/18 05:13 Protonix IVP 40 mg Q12H SHIRLEY Administration Sodium Chloride 10 ml 09/21/18 03:49 09/22/18 02:48 Normal Saline Flush 0.9% IVP 10 ml PRN PRN Administration NEEDED PER PROVIDER ORDERS Sodium Chloride 10 ml 09/21/18 09:00 09/22/18 00:19 Normal Saline Flush 0.9% IVP 10 ml 0100,0900,1700 SHIRLEY Administration Vitamin A/Vitamin D 1 applic 09/22/18 03:32 09/22/18 03:38 Vitamin A & D Ointment TOP 1 applic PRN PRN Administration Skin Care - Lab Result Fish Bone Diagrams: 09/22/18 05:03 09/22/18 05:03 - Additional Planning Condition/Complexity: Stable My Orders: My Active Orders 09/22/18 08:51 Sodium Chloride 0.9% [Normal Saline 0.9%] 1,000 ml IV 50 mls/hr 09/22/18 Lunch DIET [Regular Diet] [DIET] Plan Discussed with:: Patient, Other (hospitalists) Time Spent: 31-60 minutes Subjective - Subjective Patient Reports: Other (no abd pain,N/V; tolerating reg diet; no bm since admission; c/o persistent rectal pain relieved with narcotic analgesics) Objective Vital Signs: Vital Signs - 24 hr 09/21/18 09/21/18 09/21/18 10:04 10:12 11:01 Temperature 36.7 C 36.8 C 36.8 C Heart Rate 92 97 Heart Rate [ 93 Radial] Respiratory 18 16 18 Rate Blood Pressure 107/65 113/72 Blood Pressure 107/65 [Left Brachial artery] Blood Pressure [Right Brachial artery] O2 Saturation 99 100 09/21/18 09/21/18 09/21/18 11:06 11:12 11:20 Temperature 36.8 C 36.7 C Heart Rate 99 93 94 Heart Rate [ Radial] Respiratory 19 17 24 Rate Blood Pressure 112/72 115/73 128/98 H Blood Pressure [Left Brachial artery] Blood Pressure [Right Brachial artery] O2 Saturation 100 100 99 09/21/18 09/21/18 09/21/18 11:27 11:30 11:50 Temperature 36.7 C Heart Rate 98 Heart Rate [ 94 91 Radial] Respiratory 17 16 18 Rate Blood Pressure 122/75 Blood Pressure 127/73 116/72 [Left Brachial artery] Blood Pressure [Right Brachial artery] O2 Saturation 99 99 99 09/21/18 09/21/18 09/21/18 12:42 15:20 19:34 Temperature 36.6 C 36.8 C 36.8 C Heart Rate 96 Heart Rate [ 80 81 Radial] Respiratory 19 20 18 Rate Blood Pressure 140/78 H Blood Pressure 125/65 [Left Brachial artery] Blood Pressure 129/67 [Right Brachial artery] O2 Saturation 98 98 09/22/18 09/22/18 09/22/18 00:00 00:26 01:05 Temperature 37.2 C 37.2 C 37.2 C Heart Rate 75 73 Heart Rate [ 75 Radial] Respiratory 18 18 18 Rate Blood Pressure 122/68 113/58 L Blood Pressure 122/68 [Left Brachial artery] Blood Pressure [Right Brachial artery] O2 Saturation 98 09/22/18 09/22/18 03:45 07:57 Temperature 36.7 C 36.9 C Heart Rate 77 Heart Rate [ 77 92 Radial] Respiratory 18 20 Rate Blood Pressure 129/75 Blood Pressure 129/75 [Left Brachial artery] Blood Pressure 124/83 H [Right Brachial artery] O2 Saturation 98 98 Oxygen O2 Source Room air I&O (Last 24 Hrs): Intake and Output Totals x24h 09/20/18 09/21/18 09/22/18 23:59 23:59 23:59 Intake Total 1498.334 960 Output Total 1505 625 Balance -6.666 335 General: Alert, Oriented x3, Cooperative, Moderate distress Abdomen: Soft, No tenderness, No hepatospenomegaly, No masses Rectal: Hemorrhoid (inflamed tender external hemorrhoid right lateral quadrant; unable to do ALIYAH due to discomfort) Extremities: No clubbing, No cyanosis, No edema, No tenderness/swelling - Results Results: Laboratory Results WBC 6.6 x10^3/uL (4.8-10.8) 09/22/18 05:03 RBC 2.92 10^6/uL (4.70-6.10) L 09/22/18 05:03 Hgb 7.8 g/dL (14.0-18.0) L 09/22/18 05:03 Hct 24.1 % (42.0-52.0) L 09/22/18 05:03 MCV 82.4 fL (80.0-94.0) 09/22/18 05:03 MCH 26.5 pg (27.0-31.0) L 09/22/18 05:03 MCHC 32.2 g/dL (32.0-36.0) 09/22/18 05:03 RDW 17.8 % (12.0-15.0) H 09/22/18 05:03 Plt Count 151 10^3/uL (130-450) 09/22/18 05:03 MPV 8.3 fL (7.4-11.4) 09/22/18 05:03 Neut # (Auto) 4.6 10^3/uL (1.5-6.6) 09/22/18 05:03 Lymph # (Auto) 1.3 10^3/uL (1.5-3.5) L 09/22/18 05:03 [place] # (Auto) 0.6 10^3/uL (0.0-1.0) 09/22/18 05:03 Eos # (Auto) 0.1 10^3/uL (0.0-0.7) 09/22/18 05:03 Baso # (Auto) 0.1 10^3/uL (0.0-0.1) 09/22/18 05:03 Absolute Nucleated RBC 0.00 x10^3/uL 09/22/18 05:03 Nucleated RBC % 0.0 /100WBC 09/22/18 05:03 Manual Slide Review Indicated 09/22/18 05:03 Platelet Estimate NORMAL (130-450,000) (NORMAL) 09/22/18 05:03 RBC Morph Micro Appear 2+ ANISOCYTOSIS (NORMAL) 2+ POIKILOCYTOSIS (NORMAL) 2+ MICROCYTOSIS (NORMAL) 3+ HYPOCHROMASIA (NORMAL) 09/21/18 02:00 RBC Morph Micro Appear 2+ ANISOCYTOSIS (NORMAL) 2+ POIKILOCYTOSIS (NORMAL) 2+ MICROCYTOSIS (NORMAL) 3+ HYPOCHROMASIA (NORMAL) 09/21/18 02:00 RBC Morph Micro Appear 2+ ANISOCYTOSIS (NORMAL) 2+ POIKILOCYTOSIS (NORMAL) 2+ MICROCYTOSIS (NORMAL) 3+ HYPOCHROMASIA (NORMAL) 09/21/18 02:00 RBC Morph Micro Appear 1+ ANISOCYTOSIS (NORMAL) 1+ POIKILOCYTOSIS (NORMAL) 09/22/18 05:03 RBC Morph Micro Appear 1+ ANISOCYTOSIS (NORMAL) 1+ POIKILOCYTOSIS (NORMAL) 09/22/18 05:03 PT 13.8 secs (9.9-12.6) H 09/21/18 02:00 INR 1.2 (0.8-1.2) 09/21/18 02:00 Sodium 137 mmol/L (135-145) 09/22/18 05:03 Potassium 3.5 mmol/L (3.5-5.0) 09/22/18 05:03 Chloride 107 mmol/L (101-111) 09/22/18 05:03 Carbon Dioxide 25 mmol/L (21-32) 09/22/18 05:03 Anion Gap 5.0 (6-13) L 09/22/18 05:03 BUN 26 mg/dL (6-20) H 09/22/18 05:03 Creatinine 0.9 mg/dL (0.6-1.2) 09/22/18 05:03 Estimated GFR (MDRD) 86 (>89) L 09/22/18 05:03 Glucose 91 mg/dL (70-100) 09/22/18 05:03 Calcium 8.4 mg/dL (8.5-10.3) L 09/22/18 05:03 Total Bilirubin 0.5 mg/dL (0.2-1.0) 09/21/18 02:00 AST 23 IU/L (10-42) 09/21/18 02:00 ALT 25 IU/L (10-60) 09/21/18 02:00 Alkaline Phosphatase 51 IU/L (42-121) 09/21/18 02:00 Troponin I < 0.04 ng/mL (<0.49) 09/21/18 13:42 Total Protein 6.4 g/dL (6.7-8.2) L 09/21/18 02:00 Albumin 3.5 g/dL (3.2-5.5) 09/21/18 02:00 Globulin 2.9 g/dL (2.1-4.2) 09/21/18 02:00 Albumin/Globulin Ratio 1.2 (1.0-2.2) 09/21/18 02:00 Urine Opiates Screen POSITIVE (NEGATIVE) H 09/21/18 10:20 Ur Oxycodone Screen NEGATIVE (NEGATIVE) 09/21/18 10:20 Urine Methadone Screen NEGATIVE (NEGATIVE) 09/21/18 10:20 Ur Propoxyphene Screen NEGATIVE (NEGATIVE) 09/21/18 10:20 Ur Barbiturates Screen NEGATIVE (NEGATIVE) 09/21/18 10:20 Ur Tricyclics Screen NEGATIVE (NEGATIVE) 09/21/18 10:20 Ur Phencyclidine Scrn NEGATIVE (NEGATIVE) 09/21/18 10:20 Ur Amphetamine Screen NEGATIVE (NEGATIVE) 09/21/18 10:20 U Methamphetamines Scrn NEGATIVE (NEGATIVE) 09/21/18 10:20 U Benzodiazepines Scrn NEGATIVE (NEGATIVE) 09/21/18 10:20 Urine Cocaine Screen NEGATIVE (NEGATIVE) 09/21/18 10:20 U Cannabinoids Screen POSITIVE (NEGATIVE) H 09/21/18 10:20 Blood Type O POSITIVE 09/21/18 02:45 Blood Type Recheck O POSITIVE 09/21/18 02:00 Antibody Screen NEGATIVE 09/21/18 02:45 Crossmatch IS Only See Detail 09/21/18 02:45 Sepsis Event Note (H) - Evaluation Current Stage of Sepsis: Ruled out ABX Reporting Has patient been on IV antibiotics over the past 48 hours?: No
[2018-09-22] MEDS: SENNA 8.6 MG TABLET PO SCH ×3 (09:05→19:39)
[2018-09-22] MEDS: POLYETHYLENE GLYCOL 3350 17 GM PACKET PO SCH (10:55)
[2018-09-22] MEDS: HYDROCORTISONE 1% OINTMENT 28 GM TUBE TOP SCH ×3 (11:30→20:50)
[2018-09-22] MEDS: LORazepam 0.5 MG TABLET PO PRN ×2 (11:43→20:49)
[2018-09-22] MEDS ORDERED: IOVERSOL 320 100 ML VIAL IVP ONE ×2 (11:50→13:08)
[2018-09-22] MEDS ORDERED: IOVERSOL 320 50 ML VIAL ONE ×2 (11:50→12:02)
[2018-09-22] MEDS ORDERED: PARoxetine 10 MG TABLET PO SCH (12:00)
--- NOTE | 2018-09-22 13:50 | CT Report ---
Reason: prostate/rectal pain, constipation complaints Procedure Date: 09/22/2018 Accession Number: [id number] / [id number] Procedure: CT - Abdomen/Pelvis W/ CPT Code: FULL RESULT: EXAM: CT ABDOMEN AND PELVIS EXAM DATE: 09/22/2018 01:17 PM. CLINICAL HISTORY: Prostate/rectal pain, constipation complaints. COMPARISONS: None. TECHNIQUE: Routine helical CT imaging was performed through the abdomen and pelvis. IV contrast: OPTI 320 100mL. Enteric contrast: Positive. Reconstructions: Coronal and sagittal. In accordance with CT protocol optimization, one or more of the following dose reduction techniques were utilized for this exam: automated exposure control, adjustment of mA and/or KV based on patient size, or use of iterative reconstructive technique. FINDINGS: Lung Bases: Lung bases are clear. Included portions of the heart are unremarkable. Coronary artery calcified plaque. Small hiatal hernia. Liver: Mild fatty liver. No hepatic lesions. Patent portal vein. Gallbladder/Bile Ducts: Contracted gallbladder. No biliary ductal dilatation. Spleen: Normal. Pancreas: Normal. Adrenal Glands: Normal. Kidneys: Kidneys enhance symmetrically. Bilateral nonobstructing renal calculi are evident the largest on the right in the upper pole measuring 2.5 mm and the largest in the left kidney in the mid and lower pole measuring 3 mm. No obstructing calculi are identified. No hydronephrosis. Peritoneal Cavity/Bowel: Stomach is moderate to markedly distended. No bowel obstruction or bowel wall thickening. No diverticulitis. Diverticuli seen in the distal colon. Small to moderate volume of stool in the colon. No enlarged retroperitoneal or mesenteric lymph nodes. The appendix is well visualized and normal. Pelvic Organs: Urinary bladder is mildly distended. Fatty left inguinal hernia. Prostate gland measures 4 cm. No evidence for prostate or periprostatic abscess or fluid collection. Seminal vesicles are unremarkable. By CT no evidence for perirectal or perianal abscess or significant edema. No presacral fluid collections are identified. No pelvic adenopathy. Vasculature: Vascular calcifications are identified. Mesenteric vasculature is patent. Infrarenal abdominal aorta is prominent with an area of saccular dilatation seen measuring 2.7 cm just below the level of the renal arteries and in the mid distal abdominal aorta saccular and dilated, measuring 3.2 cm and therefore mildly aneurysmal. Narrowing at the origin of the right common iliac artery. Vascular calcifications. Bones: Degenerative changes lower thoracic and lumbar spine greatest at L3-L4. Lumbar facet arthropathy. Degenerative changes of both hip joints. No acute osseous abnormalities. Other: None. IMPRESSION: 1. Normal appendix. 2. Mild distal colonic diverticulosis. No diverticulitis. Small to moderate volume of stool in colon. 3. No evidence for pelvic or prostate abscess or fluid collection. No evidence for perianal or perirectal abscess by CT. 4. Mild aneurysmal dilatation of the infrarenal abdominal aorta measuring up to 3.2 cm. 5. Nonobstructing renal calculi. No CT evidence of pyelonephritis. RADIA
[2018-09-22 14:08] LABS: HGB - HEMOGLOBIN 7.3 g/dL (14.0-18.0)
[2018-09-22] MEDS: MAGNESIUM CITRATE 296 ML BOTTLE PO SCH ×2 (14:42→17:23)
[2018-09-22] MEDS: SUCRALFATE 1 GM/10 ML UDC PO SCH ×2 (16:52→20:49)
[2018-09-22] MEDS ORDERED: LACTULOSE 10 GM /15 ML UDC PO SCH (17:27)
[2018-09-22] MEDS: ATORVASTATIN 40 MG TABLET PO SCH (20:49)
[2018-09-22] MEDS ORDERED: MORPHINE 10 MG/ML VIAL IVP ONE (21:24)
[2018-09-22] MEDS ORDERED: MORPHINE 10 MG/ML VIAL IVP SCH (22:04)
[2018-09-23] MEDS: MORPHINE 2 MG/ML CARPUJECT IVP PRN ×5 (02:08→22:17)
[2018-09-23] MEDS: LORazepam 0.5 MG TABLET PO PRN ×2 (02:36→19:32)
[2018-09-23] MEDS ORDERED: PETROLATUM WHITE 5 GM PACKET TOP PRN (03:16)
[2018-09-23] MEDS: PANTOPRAZOLE 40 MG VIAL IVP SCH ×2 (03:56→15:53)
[2018-09-23] MEDS: SODIUM CHLORIDE FLUSH 0.9% 10 ML SYRINGE IVP PRN ×4 (04:08→17:30)
[2018-09-23] MEDS: LIDOCAINE OINTMENT 5% 35.44 GM TUBE TOP SCH ×4 (04:22→21:03)
[2018-09-23 05:34] LABS: BASOPHILS % (AUTO) 0.7 %; EOSINOPHILS # (AUTO) 0.1 10^3/uL (0.0-0.7); EOSINOPHILS % (AUTO) 1.4 %; HGB - HEMOGLOBIN 7.4 g/dL (14.0-18.0); LYMPHOCYTES % (AUTO) 17.3 %; MEAN CORPUSCULAR HGB CONC 31.3 g/dL (32.0-36.0); MEAN CORPUSCULAR VOLUME 83.2 fL (80.0-94.0); MEAN PLATELET VOLUME 7.7 fL (7.4-11.4); MONOCYTES # (AUTO) 0.6 10^3/uL (0.0-1.0); MONOCYTES % (AUTO) 10.3 %; NEUTROPHILS # (AUTO) 3.9 10^3/uL (1.5-6.6); NEUTROPHILS % (AUTO) 70.3 %; PLT - PLATELET COUNT 160 10^3/uL (130-450); RED BLOOD COUNT 2.86 10^6/uL (4.70-6.10); RED CELL DISTRIBUTION WIDTH 17.9 % (12.0-15.0); WHITE BLOOD COUNT 5.6 x10^3/uL (4.8-10.8)
[2018-09-23 05:38] LABS: CALCIUM 8.4 mg/dL (8.5-10.3); CREATININE 0.8 mg/dL (0.6-1.2)
[2018-09-23] MEDS: HYDROCORTISONE 1% OINTMENT 28 GM TUBE TOP SCH (06:22)
[2018-09-23] MEDS: SUCRALFATE 1 GM/10 ML UDC PO SCH ×4 (06:23→21:00)
[2018-09-23] MEDS: SENNA 8.6 MG TABLET PO SCH ×2 (06:23)
--- NOTE | 2018-09-23 08:22 | PROVIDER PROGRESS NOTE ---
Assessment/Plan - Problem List (1) GI bleed Qualifiers: GI bleed type/associated pathology: gastric ulcer Qualified Code(s): K25.4 - Chronic or unspecified gastric ulcer with hemorrhage Assessment/Plan: Clinically resolving with stable H/H and no clinical evidence of active recurrent gi bleeding. Rec: continue present management; perhaps home tomorrow on oral high dose PPI therapy and no NSAIDs if continues to do well from this standpoint. (2) Anal fissure Assessment/Plan: previously diagnosed as outptatient, unable to assess at present without exam under anesthesia due to marked discomfort; will proceed with EUA and treat if present accordingly. (3) Hemorrhoids, complicated Assessment/Plan: He now appears to have prolapsed, thrombosed and gangrenous hemorrhoids, causing extreme pain. Rec: to OR for EUA and definitive treatment based on operative findings. PAR conference with patient was held including need for possible hemorrhoidectomy, lateral internal sphincterotomy, and/or biopsy discussed as well as risks of bleeding, infection, recurrence, impairment of continence and consent was obtained. The procedure will be scheduled for later today as soon as it can be arranged. - Current Meds Current Meds: Current Medications Generic Name Dose Route Start Last Admin Trade Name Freq PRN Reason Stop Dose Admin Atorvastatin Calcium 80 mg 09/22/18 21:00 09/22/18 20:49 Lipitor PO 80 mg QPM SHIRLEY Administration Docusate Sodium 250 - 500 mg 09/22/18 04:00 09/22/18 09:05 Colace 250mg Capsule PO 250 mg DAILY SHIRLEY Administration Hydrocortisone 1 applic 09/22/18 09:00 09/23/18 06:22 Hydrocortisone TOP Not Given TID SHIRLEY Lidocaine 1 applic 09/21/18 09:00 09/23/18 04:22 Xylocaine Ointment 5% TOP 1 applic QID SHIRLEY Administration Lorazepam 0.5 mg 09/21/18 08:38 09/23/18 02:36 Ativan PO 0.5 mg Q6H PRN Administration Anxiety Mineral Oil 1 applic 09/22/18 03:32 09/23/18 02:44 Cavilon TOP 1 applic PRN PRN Administration Skin Care Morphine Sulfate 2 mg 09/21/18 03:49 09/23/18 06:25 Morphine (Carpuject) IVP 2 mg Q2HR PRN Administration Pain 8 to 10 Ondansetron HCl 4 mg 09/21/18 03:49 09/22/18 00:40 Zofran Inj IVP 4 mg Q6HR PRN Administration Nausea / Vomiting Pantoprazole Sodium 40 mg 09/21/18 16:00 09/23/18 03:56 Protonix IVP 40 mg Q12H SHIRLEY Administration Polyethylene Glycol 17 gm 09/22/18 09:00 09/22/18 10:55 Miralax PO 17 gm DAILY SHIRLEY Administration Senna 8.6 - 17.2 mg 09/22/18 09:00 09/22/18 18:27 Senokot PO 17.2 mg DAILY SHIRLEY Administration Senna 17.2 - 25.8 mg 09/22/18 18:00 09/23/18 06:23 Senokot PO 09/23/18 12:01 17.2 mg Q6H SHIRLEY Administration Sodium Chloride 10 ml 09/21/18 03:49 09/23/18 04:23 Normal Saline Flush 0.9% IVP 10 ml PRN PRN Administration NEEDED PER PROVIDER ORDERS Sodium Chloride 10 ml 09/21/18 09:00 09/22/18 23:41 Normal Saline Flush 0.9% IVP 10 ml 0100,0900,1700 SHIRLEY Administration Sucralfate 1 gm 09/22/18 16:00 09/23/18 06:23 Carafate PO 1 gm 0700,1100,1600,2200 SHIRLEY Administration Vitamin A/Vitamin D 1 applic 09/22/18 03:32 09/22/18 03:38 Vitamin A & D Ointment TOP 1 applic PRN PRN Administration Skin Care - Lab Result Lab results reviewed: Yes Fish Bone Diagrams: 09/23/18 05:15 09/23/18 05:15 - Diagnostic Imaging Results Diagnostic Imaging Results: Final report reviewed Diagnostic Imaging Results Comments: CT abd/pelvis yesterday: no evidence of pedro rectal abscess or prostatic problem to explain his rectal pain. - Additional Planning Condition/Complexity: Other (GI bleed resolving; anorectal problem(s) worsening) My Orders: My Active Orders 09/23/18 08:17 NPO except Meds [DIET] 09/23/18 08:18 ACETAMINOPHEN 1000MG IV Q6H PRN PAIN Acetaminophen 1,000 mg/100 ml [Ofirmev] 100 ml IV Q6HR 09/23/18 09:00 LR @ 83.333 mls/hr Lactated Ringers [Lr] 1,000 ml IV 83.333 mls/hr Plan Discussed with:: Patient, Other (hospitalists) Time Spent: 31-60 minutes Subjective - Subjective Patient Reports: Other (Denies abd pain, N/V, but c/o worsening, persistent severe rectal pain unrelieved by topical agents and sitz baths. Requiring narcotic anaglesics round the clock. Has passed 2 small black stools.) Nursing Reports: Pain Objective Vital Signs: Vital Signs - 24 hr 09/22/18 09/22/18 09/23/18 15:48 17:00 00:04 Temperature 36.8 C 36.8 C Heart Rate [ 89 92 76 Radial] Respiratory 20 17 Rate Blood Pressure 94/50 L [Left Brachial artery] Blood Pressure 100/52 L 131/84 H [Right Brachial artery] O2 Saturation 98 99 09/23/18 07:56 Temperature 37.2 C Heart Rate [ 83 Radial] Respiratory 15 Rate Blood Pressure [Left Brachial artery] Blood Pressure 117/69 [Right Brachial artery] O2 Saturation 95 Oxygen O2 Source Room air I&O (Last 24 Hrs): Intake and Output Totals x24h 09/21/18 09/22/18 09/23/18 23:59 23:59 23:59 Intake Total 5374.824 7724 Output Total 1505 1475 225 Balance -6.666 961 -225 General: Alert, Oriented x3, Cooperative HEENT: Other (mild periorbital edema) Neck: Supple, No JVD Lymphatic: no adenopathy Neuro: Alert Cardiovascular: Regular rate, Normal S2, No murmurs Respiratory: Chest non-tender, No respiratory distress, Breath sounds nml Abdomen: Soft, No tenderness, No hepatospenomegaly, No masses Rectal: Hemorrhoid (circumferential swollen, edematous, prolapsed internal/external hemorrhoids with focal gangenous change apparent in the left posterolateral quadrant.) Extremities: No clubbing, No cyanosis, No edema, No tenderness/swelling - Results Results: Laboratory Results WBC 5.6 x10^3/uL (4.8-10.8) 09/23/18 05:15 RBC 2.86 10^6/uL (4.70-6.10) L 09/23/18 05:15 Hgb 7.4 g/dL (14.0-18.0) L 09/23/18 05:15 Hct 23.8 % (42.0-52.0) L 09/23/18 05:15 MCV 83.2 fL (80.0-94.0) 09/23/18 05:15 MCH 26.0 pg (27.0-31.0) L 09/23/18 05:15 MCHC 31.3 g/dL (32.0-36.0) L 09/23/18 05:15 RDW 17.9 % (12.0-15.0) H 09/23/18 05:15 Plt Count 160 10^3/uL (130-450) 09/23/18 05:15 MPV 7.7 fL (7.4-11.4) 09/23/18 05:15 Neut # (Auto) 3.9 10^3/uL (1.5-6.6) 09/23/18 05:15 Lymph # (Auto) 1.0 10^3/uL (1.5-3.5) L 09/23/18 05:15 [place] # (Auto) 0.6 10^3/uL (0.0-1.0) 09/23/18 05:15 Eos # (Auto) 0.1 10^3/uL (0.0-0.7) 09/23/18 05:15 Baso # (Auto) 0.0 10^3/uL (0.0-0.1) 09/23/18 05:15 Absolute Nucleated RBC 0.00 x10^3/uL 09/23/18 05:15 Nucleated RBC % 0.0 /100WBC 09/23/18 05:15 Manual Slide Review Indicated 09/22/18 05:03 Platelet Estimate NORMAL (130-450,000) (NORMAL) 09/22/18 05:03 RBC Morph Micro Appear 2+ ANISOCYTOSIS (NORMAL) 2+ POIKILOCYTOSIS (NORMAL) 2+ MICROCYTOSIS (NORMAL) 3+ HYPOCHROMASIA (NORMAL) 09/21/18 02:00 RBC Morph Micro Appear 2+ ANISOCYTOSIS (NORMAL) 2+ POIKILOCYTOSIS (NORMAL) 2+ MICROCYTOSIS (NORMAL) 3+ HYPOCHROMASIA (NORMAL) 09/21/18 02:00 RBC Morph Micro Appear 2+ ANISOCYTOSIS (NORMAL) 2+ POIKILOCYTOSIS (NORMAL) 2+ MICROCYTOSIS (NORMAL) 3+ HYPOCHROMASIA (NORMAL) 09/21/18 02:00 RBC Morph Micro Appear 1+ ANISOCYTOSIS (NORMAL) 1+ POIKILOCYTOSIS (NORMAL) 09/22/18 05:03 RBC Morph Micro Appear 1+ ANISOCYTOSIS (NORMAL) 1+ POIKILOCYTOSIS (NORMAL) 09/22/18 05:03 PT 13.8 secs (9.9-12.6) H 09/21/18 02:00 INR 1.2 (0.8-1.2) 09/21/18 02:00 Sodium 137 mmol/L (135-145) 09/23/18 05:15 Potassium 3.4 mmol/L (3.5-5.0) L 09/23/18 05:15 Chloride 108 mmol/L (101-111) 09/23/18 05:15 Carbon Dioxide 23 mmol/L (21-32) 09/23/18 05:15 Anion Gap 6.0 (6-13) 09/23/18 05:15 BUN 16 mg/dL (6-20) 09/23/18 05:15 Creatinine 0.8 mg/dL (0.6-1.2) 09/23/18 05:15 Estimated GFR (MDRD) 99 (>89) 09/23/18 05:15 Glucose 104 mg/dL (70-100) H 09/23/18 05:15 Calcium 8.4 mg/dL (8.5-10.3) L 09/23/18 05:15 Magnesium 1.8 mg/dL (1.7-2.8) 09/22/18 13:50 Total Bilirubin 0.5 mg/dL (0.2-1.0) 09/21/18 02:00 AST 23 IU/L (10-42) 09/21/18 02:00 ALT 25 IU/L (10-60) 09/21/18 02:00 Alkaline Phosphatase 51 IU/L (42-121) 09/21/18 02:00 Troponin I < 0.04 ng/mL (<0.49) 09/21/18 13:42 Total Protein 6.4 g/dL (6.7-8.2) L 09/21/18 02:00 Albumin 3.5 g/dL (3.2-5.5) 09/21/18 02:00 Globulin 2.9 g/dL (2.1-4.2) 09/21/18 02:00 Albumin/Globulin Ratio 1.2 (1.0-2.2) 09/21/18 02:00 Urine Opiates Screen POSITIVE (NEGATIVE) H 09/21/18 10:20 Ur Oxycodone Screen NEGATIVE (NEGATIVE) 09/21/18 10:20 Urine Methadone Screen NEGATIVE (NEGATIVE) 09/21/18 10:20 Ur Propoxyphene Screen NEGATIVE (NEGATIVE) 09/21/18 10:20 Ur Barbiturates Screen NEGATIVE (NEGATIVE) 09/21/18 10:20 Ur Tricyclics Screen NEGATIVE (NEGATIVE) 09/21/18 10:20 Ur Phencyclidine Scrn NEGATIVE (NEGATIVE) 09/21/18 10:20 Ur Amphetamine Screen NEGATIVE (NEGATIVE) 09/21/18 10:20 U Methamphetamines Scrn NEGATIVE (NEGATIVE) 09/21/18 10:20 U Benzodiazepines Scrn NEGATIVE (NEGATIVE) 09/21/18 10:20 Urine Cocaine Screen NEGATIVE (NEGATIVE) 09/21/18 10:20 U Cannabinoids Screen POSITIVE (NEGATIVE) H 09/21/18 10:20 Blood Type O POSITIVE 09/21/18 02:45 Blood Type Recheck O POSITIVE 09/21/18 02:00 Antibody Screen NEGATIVE 09/21/18 02:45 Crossmatch IS Only See Detail 09/21/18 02:45 Sepsis Event Note (H) - Evaluation Current Stage of Sepsis: Ruled out ABX Reporting Has patient been on IV antibiotics over the past 48 hours?: No
--- NOTE | 2018-09-23 08:38 | ANESTHESIA ---
Pre-Anesthesia VS, & Labs - Diagnosis Diagnosis Anemia and melena with upper gastrointestinal bleed as the presumed source - Procedure hemorroidectomy Vital Signs: Temp Pulse Resp BP Pulse Ox 37.2 C 83 15 117/69 95 09/23/18 07:56 09/23/18 07:56 09/23/18 07:56 09/23/18 07:56 09/23/18 07:56 Height 5 ft 8 in Weight (kg) 60.5 kg Body Mass Index 20.2 - Lab Results Current Lab Results: Laboratory Tests 09/23/18 05:15: Sodium 137, Potassium 3.4 L, Chloride 108, Carbon Dioxide 23, Anion Gap 6.0, BUN 16, Creatinine 0.8, Estimated GFR (MDRD) 99, Glucose 104 H, Calcium 8.4 L 09/23/18 05:15: WBC 5.6, RBC 2.86 L, Hgb 7.4 L, Hct 23.8 L, MCV 83.2, MCH 26.0 L , MCHC 31.3 L, RDW 17.9 H, Plt Count 160, MPV 7.7, Neut # (Auto) 3.9, Lymph # (Auto) 1.0 L, Alfalfa # (Auto) 0.6, Eos # (Auto) 0.1, Baso # (Auto) 0.0, Absolute Nucleated RBC 0.00, Nucleated RBC % 0.0 09/22/18 13:50: Magnesium 1.8 09/22/18 13:50: Hgb 7.3 L, Hct 22.4 L 09/22/18 05:03: Sodium 137, Potassium 3.5, Chloride 107, Carbon Dioxide 25, Anion Gap 5.0 L, BUN 26 H, Creatinine 0.9, Estimated GFR (MDRD) 86 L, Glucose 91, Calcium 8.4 L 09/22/18 05:03: WBC 6.6, RBC 2.92 L, Hgb 7.8 L, Hct 24.1 L, MCV 82.4, MCH 26.5 L , MCHC 32.2, RDW 17.8 H, Plt Count 151, MPV 8.3, Neut # (Auto) 4.6, Lymph # (Auto) 1.3 L, [place] # (Auto) 0.6, Eos # (Auto) 0.1, Baso # (Auto) 0.1, Absolute Nucleated RBC 0.00, Nucleated RBC % 0.0, Manual Slide Review Indicated, Platelet Estimate NORMAL (130-450,000), RBC Morph Micro Appear 1+ POIKILOCYTOSIS 09/21/18 22:05: Hgb 6.4 L*, Hct 20.4 L 09/21/18 15:53: Hgb 7.4 L, Hct 23.0 L 09/21/18 13:42: Troponin I < 0.04 09/21/18 13:42: Hgb 7.5 L, Hct 23.2 L 09/21/18 10:20: Urine Opiates Screen POSITIVE H, Ur Oxycodone Screen NEGATIVE, Urine Methadone Screen NEGATIVE, Ur Propoxyphene Screen NEGATIVE, Ur Barbitura uriel Screen NEGATIVE, Ur Tricyclics Screen NEGATIVE, Ur Phencyclidine Scrn NEGATIVE, Ur Amphetamine Screen NEGATIVE, U Methamphetamines Scrn NEGATIVE, U Benzodiazepines Scrn NEGATIVE, Urine Cocaine Screen NEGATIVE, U Cannabinoids Screen POSITIVE H 09/21/18 02:45: Blood Type O POSITIVE, Antibody Screen NEGATIVE, Crossmatch IS Only See Detail 09/21/18 02:00: Blood Type Recheck O POSITIVE 09/21/18 02:00: Sodium 134 L, Potassium 3.3 L, Chloride 102, Carbon Dioxide 21, Anion Gap 11.0, BUN 57 H, Creatinine 1.1, Estimated GFR (MDRD) 69 L, Glucose 105 H, Calcium 8.4 L, Total Bilirubin 0.5, AST 23, ALT 25, Alkaline Phosphatase 51, Total Protein 6.4 L, Albumin 3.5, Globulin 2.9, Albumin/Globulin Ratio 1.2 09/21/18 02:00: PT 13.8 H, INR 1.2 09/21/18 02:00: WBC 7.2, RBC 2.43 L, Hgb 5.8 L*, Hct 18.9 L*, MCV 77.8 L, MCH 23.9 L, MCHC 30.7 L, RDW 20.9 H, Plt Count 212, MPV 8.2, Neut # (Auto) 6.2, Lymph # (Auto) 0.5 L, [place] # (Auto) 0.5, Eos # (Auto) 0.0, Baso # (Auto) 0.0, Absolute Nucleated RBC 0.00, Nucleated RBC % 0.0, Manual Slide Review Indicated, Platelet Estimate NORMAL (130-450,000), RBC Morph Micro Appear 3+ HYPOCHROMASIA Lab results reviewed: Yes Fish Bones: 09/23/18 05:15 09/23/18 05:15 Home Medications and Allergies Home Medications: Ambulatory Orders Aspirin [Aspirin EC] 81 mg PO DAILY 09/21/18 Atorvastatin Calcium [Lipitor] 80 mg PO DAILY 09/21/18 Diltiazem 2% Cream 1 applic TOP .TID-QID 09/21/18 Nitroglycerin [Rectiv] 1 applic RC BID 09/21/18 PARoxetine HCl [Paroxetine HCl] 10 mg PO DAILY 09/21/18 Ranitidine HCl [Acid First Assist] 75 mg PO DAILY 09/21/18 Active Medications Atorvastatin Calcium (Lipitor) 80 mg PO QPM [facility] Last Admin: 09/22/18 20:49 Dose: 80 mg Docusate Sodium (Colace 250mg Capsule) 250 - 500 mg PO DAILY [facility] Last Admin: 09/22/18 09:05 Dose: 250 mg Hydrocortisone (Hydrocortisone) 1 applic TOP TID [facility] Last Admin: 09/23/18 06:22 Dose: Not Given Lactated Ringer's (Lr) 1,000 mls @ 83.333 mls/hr IV .Q12H [facility] Acetaminophen (Ofirmev) 100 mls @ 400 mls/hr IV Q6HR PRN PRN Reason: PAIN Lidocaine (Xylocaine Ointment 5%) 1 applic TOP QID [facility] Last Admin: 09/23/18 04:22 Dose: 1 applic Lisinopril (Zestril) 10 mg PO DAILY [facility] Lorazepam (Ativan) 0.5 mg PO Q6H PRN PRN Reason: Anxiety Last Admin: 09/23/18 02:36 Dose: 0.5 mg Mineral Oil (Cavilon) 1 applic TOP PRN PRN PRN Reason: Skin Care Last Admin: 09/23/18 02:44 Dose: 1 applic Morphine Sulfate (Morphine (Carpuject)) 2 mg IVP Q2HR PRN PRN Reason: Pain 8 to 10 Last Admin: 09/23/18 06:25 Dose: 2 mg Ondansetron HCl (Zofran Inj) 4 mg IVP Q6HR PRN PRN Reason: Nausea / Vomiting Last Admin: 09/22/18 00:40 Dose: 4 mg Pantoprazole Sodium (Protonix) 40 mg IVP Q12H [facility] Last Admin: 09/23/18 03:56 Dose: 40 mg Paroxetine HCl (Paxil) 10 mg PO QPM [facility] Petrolatum (Vaseline) 5 gm TOP PRN PRN PRN Reason: Dry Lips Polyethylene Glycol (Miralax) 17 gm PO DAILY [facility] Last Admin: 09/22/18 10:55 Dose: 17 gm Senna (Senokot) 8.6 - 17.2 mg PO DAILY [facility] Last Admin: 09/22/18 18:27 Dose: 17.2 mg Senna (Senokot) 17.2 - 25.8 mg PO Q6H [facility] Stop: 09/23/18 12:01 Last Admin: 09/23/18 06:23 Dose: 17.2 mg Sodium Chloride (Normal Saline Flush 0.9%) 10 ml IVP PRN PRN PRN Reason: NEEDED PER PROVIDER ORDERS Last Admin: 09/23/18 04:23 Dose: 10 ml Sodium Chloride (Normal Saline Flush 0.9%) 10 ml IVP 0100,0900,1700 [facility] Last Admin: 09/22/18 23:41 Dose: 10 ml Sucralfate (Carafate) 1 gm PO 0700,1100,1600,2200 [facility] Last Admin: 09/23/18 06:23 Dose: 1 gm Vitamin A/Vitamin D (Vitamin A & D Ointment) 1 applic TOP PRN PRN PRN Reason: Skin Care Last Admin: 09/22/18 03:38 Dose: 1 applic Clopidogrel [Plavix] 75 mg PO DAILY 01/10/17 Lisinopril 10 mg PO DAILY 01/10/17 Aspirin [Aspirin EC] 81 mg PO DAILY 09/21/18 Atorvastatin Calcium [Lipitor] 80 mg PO DAILY 09/21/18 Diltiazem 2% Cream 1 applic TOP .TID-QID 09/21/18 Nitroglycerin [Rectiv] 1 applic RC BID 09/21/18 PARoxetine HCl [Paroxetine HCl] 10 mg PO DAILY 09/21/18 Ranitidine HCl [Acid First Assist] 75 mg PO DAILY 09/21/18 Allergies/Adverse Reactions: Allergies Allergy/AdvReac Type Severity Reaction Status Date / Time ibuprofen Allergy Nausea Verified 09/21/18 01:24 Anes History & Medical History - Anesthetic History Anesthesia Complications: reports: No previous complications - Medical History Cardiovascular: reports: Hypertension, Coronary artery disease, [place] Pulmonary: reports: None Endocrine/Autoimmune: reports: None Smoking Status: Current every day smoker - Surgical History Cardiothoracic: Coronary stent Exam General: Alert, Oriented x3, Cooperative Dental: WNL Mouth Openin Fingerbreadth Neck Mobility: Normal Mallampati classification: II Thyromental Distance: 4-6 cm Respiratory: Lungs clear, Normal breath sounds Cardiovascular: Regular rate Neurological: Normal speech Mental/Cognitive Status: Alert/Oriented X3, Normal for patient Plan Anesthesia Type: MAC Consent for Procedure(s) Verified and Reviewed: Yes Code Status: Attempt Resuscitation ASA classification: 3-Severe systemic disease Is this case an emergency?: Yes
[2018-09-23] MEDS: DOCUSATE SODIUM 250 MG CAPSULE PO SCH (08:54)
[2018-09-23] MEDS ORDERED: BUPIVACAINE 0.5%-EPI 1:200000 PF 30 ML VIAL ONE (08:54)
[2018-09-23] MEDS ORDERED: LIDOCAINE JELLY 2% 6 ML JEL.PF.APP ONE (08:54)
[2018-09-23] MEDS: PARoxetine 10 MG TABLET PO SCH ×2 (08:55→21:01)
[2018-09-23] MEDS ORDERED: LACTATED RINGERS 1,000 ML IV SCH (09:00)
[2018-09-23] MEDS ORDERED: NON FORMULARY MED (Lisinopril [Lisinopril] 10 MG) PO SCH (09:00)
[2018-09-23] MEDS ORDERED: LACTATED RINGERS 1,000 ML IV ONE (09:15)
[2018-09-23] MEDS ORDERED: LIDOCAINE 1% 50 ML MDV ONE (09:37)
[2018-09-23] MEDS ORDERED: LIDOCAINE JELLY 2% 6 ML JEL.PF.APP UR ONE (09:50)
[2018-09-23] MEDS ORDERED: BUPIVACAINE 0.5%-EPI 1:200000 PF 30 ML VIAL SUBQ ONE ×2 (09:58)
[2018-09-23] MEDS ORDERED: LIDOCAINE 1% 50 ML MDV SUBQ ONE ×2 (09:59)
[2018-09-23] MEDS ORDERED: PROPOFOL 1000 MG/100 ML IV ONE (10:00)
[2018-09-23] MEDS ORDERED: MIDAZOLAM 2 MG/2 ML VIAL IVP ONE (10:00)
[2018-09-23] MEDS ORDERED: LIDOCAINE-MPF 2% 5 ML VIAL IM ONE (10:00)
[2018-09-23] MEDS ORDERED: GLYCOPYRROLATE 1 MG/5 ML VIAL IVP ONE (10:00)
[2018-09-23] MEDS ORDERED: KETAMINE 500 MG/10 ML VIAL IVP ONE (10:00)
--- NOTE | 2018-09-23 10:35 | OPERATIVE REPORT ---
Operative Report - General Admit Date: 09/21/18 Procedure Date: 09/23/18 Planned Procedure: Exam under anesthesia, possible hemorroidectomy Pre-Op Diagnosis: rectal pain; thrombosed prolapsed internal/external hemorrhoids Procedure Performed: Hemorrhoidectomy Post Op Diagnosis: Thrombosed, prolapsed, gangrenous internal/external hemorrhoids - Procedure Note Primary Surgeon: Piotr Fair MD FACS Anesthesia Provider: Matt Delgado CRNA Anesthesia Technique: Local, MAC Pathology: Hemorrhoids Estimated Blood Loss (mL): 10 Drain/Tube Type: Other (none) Complications: None - Other Other Information/Narrative: After informed consent, pt was placed in the prone jacknife position with his buttocks taped apart. Moderate sedation was performed by Matt Delgado CRNA. His perianal region was prepped with iodoform solution and draped in the usual sterile fashion. 50 cc of a 50:50 combination of 1% lidocaine plain and 0.5% bupivocaine with epi was used to perform a perianal block. The anal canal was gently dilated digitally to two fingers. A univalved anal speculum was inserted and anoscopy performed with the findings of 3 thrombosed/prolapsed and partially gangreous internal/external hemorrhoidal complexes located in the anterior midline, the right posterolateral and right anterolateral quadrants. On the left side, edematous external hemorrhoids were noted but left in situ. The three major complexes noted above were resected using the Ligasure device, with care being taken to avoid injury to the underlying sphincter mechanism and to avoid excessive removal of anoderm. The Ligasure also provided hemostasis. There was no evidence of anal fissure or perirectal abscess or gross evidence of malignancy. A wick of GelFoam soaked in viscous lidocaine was inserted into the anal canal, dry sterile dressings were applied and the procedure was then terminated without apparent complication. Sponge and needle counts were correct and no drains were used. Blood loss was minimal.
[2018-09-23] MEDS: ACETAMINOPHEN 1,000 MG/100 ML 100 ML IV PRN ×2 (10:54→17:29)
[2018-09-23] MEDS: LISINOPRIL 5 MG TABLET PO SCH (11:06)
[2018-09-23] MEDS: SODIUM CHLORIDE FLUSH 0.9% 10 ML SYRINGE IVP SCH ×4 (11:13→22:17)
[2018-09-23] MEDS: POLYETHYLENE GLYCOL 3350 17 GM PACKET PO SCH ×2 (11:13→22:08)
--- NOTE | 2018-09-23 15:49 | PROVIDER PROGRESS NOTE ---
Subjective - Prog Note Date Prog Note Date: 09/23/18 Prog Note Time: 15:49 - Subjective Pt reports feeling: Improved Subjective: Missael admits to improvement of his overall comfort since his hemorrhoid repair. He denies chest pain, new bleeding, nausea, vomiting, shortness of breath, a rash or a new cough. Current Medications - Current Medications Current Medications: Active Medications: Atorvastatin Calcium (Lipitor) 80 mg PO QPM [facility] Docusate Sodium (Colace 250mg Capsule) 250 - 500 mg PO DAILY [facility] Acetaminophen (Ofirmev) 100 mls @ 400 mls/hr IV Q6HR PRN Lidocaine (Xylocaine Ointment 5%) 1 applic TOP QID [facility] Lisinopril (Zestril) 10 mg PO DAILY [facility] Lorazepam (Ativan) 0.5 mg PO Q6H PRN Morphine Sulfate (Morphine (Carpuject)) 2 mg IVP Q2HR PRN Ondansetron HCl (Zofran Inj) 4 mg IVP Q6HR PRN Oxycodone HCl (Roxicodone) 5 mg PO Q4HR PRN Pantoprazole Sodium (Protonix) 40 mg IVP Q12H [facility] Paroxetine HCl (Paxil) 10 mg PO QPM [facility] Polyethylene Glycol (Miralax) 17 gm PO DAILY [facility] Sucralfate (Carafate) 1 gm PO 0700,1100,1600,2200 [facility] Vitamin A/Vitamin D (Vitamin A & D Ointment) 1 applic TOP PRN HOME meds: Clopidogrel [Plavix] 75 mg PO DAILY 01/10/17 Lisinopril 10 mg PO DAILY 01/10/17 Aspirin [Aspirin EC] 81 mg PO DAILY 09/21/18 Atorvastatin Calcium [Lipitor] 80 mg PO DAILY 09/21/18 Diltiazem 2% Cream 1 applic TOP .TID-QID 09/21/18 Nitroglycerin [Rectiv] 1 applic RC BID 09/21/18 PARoxetine HCl [Paroxetine HCl] 10 mg PO DAILY 09/21/18 Ranitidine HCl [Acid Family Mediator] 75 mg PO DAILY 09/21/18 Objective - Vital Signs/Intake & Output Reviewed Vital Signs: Yes Vital Signs: Vital Signs x48h Temp Pulse Resp BP BP Pulse Ox 09/23/18 12:48 37.2 C 97 16 142/78 H 98 09/23/18 12:06 95/31 L 09/23/18 11:10 96 16 142/88 H 98 09/23/18 10:36 37.2 C 139/82 H 09/23/18 07:56 37.2 C 83 15 117/69 95 Intake & Output: Intake & Output 09/20/18 09/21/18 09/22/18 09/23/18 23:59 23:59 23:59 23:59 Intake Total 5147.253 6327 2680 Output Total 1505 1475 625 Balance -6.341 973 4256 - Objective General Appearance: positive: Alert, Mild distress, Anxious Eyes Bilateral: positive: PERRL ENT: positive: Pharynx nml, No signs of dehydration Neck: positive: Thyroid nml, No JVD, Trachea midline Respiratory: positive: Chest non-tender, No respiratory distress, Breath sounds nml Cardiovascular: positive: Regular rate & rhythm, No gallop, Systolic murmur Peripheral Pulses: 1+ Radial (R), 1+ Radial (L) Abdomen: positive: Non-tender, Nml bowel sounds Back: positive: Nml inspection Skin: positive: Color nml, No rash, Warm, Dry Extremities: positive: Non-tender, Full ROM, Nml appearance, No pedal edema Neurologic/Psychiatric: positive: Oriented x3, CN's nml (2-12), Motor nml, Sensation nml, Weakness, Depressed mood/affect Reflexes: Bicep (R): 3+, Bicep (L): 3+ - Lab Results Fish Bones: 09/23/18 05:15 09/23/18 05:15 Other Labs: Lab Results x24hrs 09/23/18 09/23/18 Range/Units 05:15 05:15 WBC 5.6 (4.8-10.8) x10^3/uL RBC 2.86 L (4.70-6.10) 10^6/uL Hgb 7.4 L (14.0-18.0) g/dL Hct 23.8 L (42.0-52.0) % MCV 83.2 (80.0-94.0) fL MCH 26.0 L (27.0-31.0) pg MCHC 31.3 L (32.0-36.0) g/dL RDW 17.9 H (12.0-15.0) % Plt Count 160 (130-450) 10^3/uL MPV 7.7 (7.4-11.4) fL Neut # (Auto) 3.9 (1.5-6.6) 10^3/uL Lymph # (Auto) 1.0 L (1.5-3.5) 10^3/uL [place] # (Auto) 0.6 (0.0-1.0) 10^3/uL Eos # (Auto) 0.1 (0.0-0.7) 10^3/uL Baso # (Auto) 0.0 (0.0-0.1) 10^3/uL Absolute Nucleated RBC 0.00 x10^3/uL Nucleated RBC % 0.0 /100WBC Sodium 137 (135-145) mmol/L Potassium 3.4 L (3.5-5.0) mmol/L Chloride 108 (101-111) mmol/L Carbon Dioxide 23 (21-32) mmol/L Anion Gap 6.0 (6-13) BUN 16 (6-20) mg/dL Creatinine 0.8 (0.6-1.2) mg/dL Estimated GFR (MDRD) 99 (>89) Glucose 104 H (70-100) mg/dL Calcium 8.4 L (8.5-10.3) mg/dL ABX Reporting Has patient been on IV antibiotics over the past 48 hours?: No Sepsis Event Note (H) - Evaluation Current Stage of Sepsis: Ruled out Assessment/Plan - Problem List (1) Gastric ulcer Impression: On 09/21/18 the patient underwent a EGD with epinephrine injections where acute bleeding was found. A small ulcer was appreciated at the pylorus. Blood was found in the esophagus, in the duodenum, and the duodenal bulb. His H/H is stable today and is now post-op after a hemorrhoid repair with Dr. Piotr Fair, general surgery. Plan: Continue to monitor for bleeding, continue PPI, carafate QID, encourage BMs. Contact GI if there is evidence of re-bleeding such as vomiting blood. Qualifiers: Gastric ulcer complication status: with hemorrhage (2) Hemorrhoids Impression: The patient was seen outpatient for his anal fissures with an unknown cause. Today, Dr. Fair reported a much worse exam, so he underwent a hemorrhoid removal this morning with no known complications. Since surgery, the patient has much less pain. Plan: Sitz baths TID, ice packs, pain meds and stool softeners to prevent constipation. Qualifiers: Hemorrhoid type: unspecified Qualified Code(s): K64.9 - Unspecified hemorrhoids (3) Acute blood loss anemia Impression: The patient has a baseline hemoglobin between 9-12, and it has been as low as 5.8 on admission. He has gotten a total of 3 unit of PRBCs. This morning his hemoglobin remains stable at 7.4. Plan: Continue to monitor for bleeding, transfuse if hemoglobin becomes 7 or less, or by symptoms. Daily labs. (4) Constipation Impression: An abdominal CT was completed today for ongoing complaints of constipation, and prostate pain. Imaging showed a moderate amount of stool and since that time he has been able to move his bowels. He is now post-op after a hemorrhoid removal and claims to be much more comfortable. Plan: Continue to monitor, give stool softeners, encourage ambulation. Qualifiers: Constipation type: slow transit constipation Qualified Code(s): K59.01 - Slow transit constipation (5) Ischemic cardiomyopathy Impression: The patient is prescribed Plavix, ASA, MARIYA inhibitor, and high dose statin at home. The ASA and Plavix have remained on hold since admission. He remains on lisinopril and statin. He denies chest pain on exam. Plan: Ensure a resolution of bleeding before resuming ASA and Plavix.
[2018-09-23] MEDS: oxyCODONE 5 MG TABLET PO PRN (19:32)
[2018-09-23] MEDS: ATORVASTATIN 40 MG TABLET PO SCH (21:00)
[2018-09-23] MEDS ORDERED: MORPHINE 10 MG/ML VIAL IVP ONE (23:18)
[2018-09-24] MEDS: ACETAMINOPHEN 1,000 MG/100 ML 100 ML IV PRN ×2 (00:37→07:39)
[2018-09-24] MEDS: oxyCODONE 5 MG TABLET PO PRN (03:24)
[2018-09-24] MEDS: PANTOPRAZOLE 40 MG VIAL IVP SCH (04:16)
[2018-09-24 05:14] LABS: BASOPHILS % (AUTO) 0.5 %; EOSINOPHILS % (AUTO) 0.3 %; HGB - HEMOGLOBIN 7.2 g/dL (14.0-18.0); LYMPHOCYTES # (AUTO) 1.2 10^3/uL (1.5-3.5); LYMPHOCYTES % (AUTO) 15.4 %; MEAN CORPUSCULAR VOLUME 83.9 fL (80.0-94.0); MONOCYTES # (AUTO) 0.8 10^3/uL (0.0-1.0); MONOCYTES % (AUTO) 10.5 %; NEUTROPHILS # (AUTO) 5.7 10^3/uL (1.5-6.6); NEUTROPHILS % (AUTO) 73.3 %; PLT - PLATELET COUNT 171 10^3/uL (130-450); RED BLOOD COUNT 2.78 10^6/uL (4.70-6.10); RED CELL DISTRIBUTION WIDTH 18.6 % (12.0-15.0); WHITE BLOOD COUNT 7.8 x10^3/uL (4.8-10.8)
[2018-09-24] MEDS: MORPHINE 2 MG/ML CARPUJECT IVP PRN (05:22)
[2018-09-24] MEDS: SODIUM CHLORIDE FLUSH 0.9% 10 ML SYRINGE IVP SCH (05:22)
[2018-09-24 05:26] LABS: ALBUMIN 2.9 g/dL (3.2-5.5); ALBUMIN/GLOBULIN RATIO 1.2 (1.0-2.2); BILIRUBIN,TOTAL 0.3 mg/dL (0.2-1.0); CALCIUM 8.8 mg/dL (8.5-10.3); TOTAL PROTEIN 5.4 g/dL (6.7-8.2)
[2018-09-24] MEDS: SUCRALFATE 1 GM/10 ML UDC PO SCH (06:33)
[2018-09-24] MEDS: DOCUSATE SODIUM 250 MG CAPSULE PO SCH (07:40)
[2018-09-24] MEDS: SODIUM CHLORIDE FLUSH 0.9% 10 ML SYRINGE IVP PRN (07:40)
[2018-09-24] MEDS: LISINOPRIL 5 MG TABLET PO SCH (07:40)
[2018-09-24] MEDS: POLYETHYLENE GLYCOL 3350 17 GM PACKET PO SCH (07:40)
[2018-09-24] MEDS: LIDOCAINE OINTMENT 5% 35.44 GM TUBE TOP SCH (07:52)
--- NOTE | 2018-09-24 09:46 | PROVIDER PROGRESS NOTE ---
Assessment/Plan - Problem List (1) GI bleed Qualifiers: GI bleed type/associated pathology: gastric ulcer Qualified Code(s): K25.4 - Chronic or unspecified gastric ulcer with hemorrhage Assessment/Plan: Resolved, with no evidence of recurrent bleeding and stable H/H; Rec: home on oral high dose PPI (BID), no NSAIDs or clopidogrel; f/u with Dr. Hull within one week; f/u my office in 2 weeks; will need repeat EGD in 6-8 weeks to document satisfactory healing of the ulcer. Discussed with pt who appears to understand and agrees with this plan. (2) Hemorrhoids, complicated Assessment/Plan: doing well PO Day 1 s/p emergency hemorrhoidectomy. Pain well controlled with IV acetaminophen; narcotics not beneficial per pt. Rec: home today; sitz baths TID, stool softeners, daily Miralax, acetaminophen for pain; f/u my office in 2 weeks. - Current Meds Current Meds: Current Medications Generic Name Dose Route Start Last Admin Trade Name Freq PRN Reason Stop Dose Admin Atorvastatin Calcium 80 mg 09/22/18 21:00 09/23/18 21:00 Lipitor PO 80 mg QPM [facility] Administration Docusate Sodium 250 - 500 mg 09/22/18 04:00 09/24/18 07:40 Colace 250mg Capsule PO 250 mg DAILY [facility] Administration Acetaminophen 100 mls @ 400 mls/hr 09/23/18 08:18 09/24/18 08:25 Ofirmev IV Infused Q6HR PRN Infusion PAIN Lidocaine 1 applic 09/21/18 09:00 09/24/18 07:52 Xylocaine Ointment 5% TOP 1 applic QID [facility] Administration Lisinopril 10 mg 09/23/18 09:00 09/24/18 07:40 Zestril PO 10 mg DAILY [facility] Administration Lorazepam 0.5 mg 09/21/18 08:38 09/23/18 19:32 Ativan PO 0.5 mg Q6H PRN Administration Anxiety Morphine Sulfate 2 mg 09/21/18 03:49 09/24/18 05:22 Morphine (Carpuject) IVP 2 mg Q2HR PRN Administration Pain 8 to 10 Ondansetron HCl 4 mg 09/21/18 03:49 09/22/18 00:40 Zofran Inj IVP 4 mg Q6HR PRN Administration Nausea / Vomiting Oxycodone HCl 5 mg 09/23/18 10:24 09/24/18 03:24 Roxicodone PO 5 mg Q4HR PRN Administration PAIN Pantoprazole Sodium 40 mg 09/21/18 16:00 09/24/18 04:16 Protonix IVP 40 mg Q12H [facility] Administration Paroxetine HCl 10 mg 09/22/18 21:00 09/23/18 21:01 Paxil PO Not Given QPM [facility] Polyethylene Glycol 17 gm 09/22/18 09:00 09/24/18 07:40 Miralax PO 17 gm DAILY [facility] Administration Sodium Chloride 10 ml 09/21/18 03:49 09/24/18 07:40 Normal Saline Flush 0.9% IVP 10 ml PRN PRN Administration NEEDED PER PROVIDER ORDERS Sodium Chloride 10 ml 09/21/18 09:00 09/24/18 05:22 Normal Saline Flush 0.9% IVP 10 ml 0100,0900,1700 [facility] Administration Sucralfate 1 gm 09/22/18 16:00 09/24/18 06:33 Carafate PO 1 gm 0700,1100,1600,2200 [facility] Administration Vitamin A/Vitamin D 1 applic 09/22/18 03:32 09/22/18 03:38 Vitamin A & D Ointment TOP 1 applic PRN PRN Administration Skin Care - Lab Result Lab results reviewed: Yes Fish Bone Diagrams: 09/24/18 04:52 09/24/18 04:52 - Additional Planning Condition/Complexity: Improved My Orders: My Active Orders 09/23/18 10:24 oxyCODONE [Roxicodone] 5 mg PO Q4HR PRN 09/23/18 Lunch Regular Diet [DIET] Plan Discussed with:: Patient, Other (hospitalists) Time Spent: 15-30 minutes Subjective - Subjective Patient Reports: Feeling Better, Resting Comfortably, Other (c/o intermittent sharp stabbing anorectal pain wel controlled with IV acetaminophen; passed one small nonbloody stool overnight, tolerating po well, voiding well, moving in and out of bed well.) Objective Vital Signs: Vital Signs - 24 hr 09/23/18 09/23/18 09/23/18 10:36 11:10 12:06 Temperature 37.2 C Heart Rate [ 96 Radial] Respiratory 16 Rate Blood Pressure 142/88 H [Left Brachial artery] Blood Pressure 139/82 H 95/31 L [Right Brachial artery] O2 Saturation 98 09/23/18 09/23/18 09/23/18 12:48 15:51 21:00 Temperature 37.2 C 36.7 C 36.8 C Heart Rate [ 97 95 79 Radial] Respiratory 16 16 16 Rate Blood Pressure 142/78 H [Left Brachial artery] Blood Pressure 115/66 121/61 [Right Brachial artery] O2 Saturation 98 96 100 09/24/18 09/24/18 00:00 07:26 Temperature 36.7 C 36.8 C Heart Rate [ 92 Radial] Respiratory 17 20 Rate Blood Pressure 139/72 H [Left Brachial artery] Blood Pressure 129/66 [Right Brachial artery] O2 Saturation 100 99 Oxygen O2 Source Room air I&O (Last 24 Hrs): Intake and Output Totals x24h 09/22/18 09/23/18 09/24/18 23:59 23:59 23:59 Intake Total 2436 3840 900 Output Total 1475 1325 100 Balance 961 2515 800 General: Alert, Oriented x3, Cooperative, Mild distress Neuro: Alert Cardiovascular: Regular rate Abdomen: Soft, No tenderness, No hepatospenomegaly, No masses Rectal: Other (external exam appears nearly normal, with no visible internal or external hemorrhoids.) - Results Results: Laboratory Results WBC 7.8 x10^3/uL (4.8-10.8) 09/24/18 04:52 RBC 2.78 10^6/uL (4.70-6.10) L 09/24/18 04:52 Hgb 7.2 g/dL (14.0-18.0) L 09/24/18 04:52 Hct 23.3 % (42.0-52.0) L 09/24/18 04:52 MCV 83.9 fL (80.0-94.0) 09/24/18 04:52 MCH 26.0 pg (27.0-31.0) L 09/24/18 04:52 MCHC 31.0 g/dL (32.0-36.0) L 09/24/18 04:52 RDW 18.6 % (12.0-15.0) H 09/24/18 04:52 Plt Count 171 10^3/uL (130-450) 09/24/18 04:52 MPV 8.0 fL (7.4-11.4) 09/24/18 04:52 Neut # (Auto) 5.7 10^3/uL (1.5-6.6) 09/24/18 04:52 Lymph # (Auto) 1.2 10^3/uL (1.5-3.5) L 09/24/18 04:52 [place] # (Auto) 0.8 10^3/uL (0.0-1.0) 09/24/18 04:52 Eos # (Auto) 0.0 10^3/uL (0.0-0.7) 09/24/18 04:52 Baso # (Auto) 0.0 10^3/uL (0.0-0.1) 09/24/18 04:52 Absolute Nucleated RBC 0.00 x10^3/uL 09/24/18 04:52 Nucleated RBC % 0.1 /100WBC 09/24/18 04:52 Manual Slide Review Indicated 09/22/18 05:03 Platelet Estimate NORMAL (130-450,000) (NORMAL) 09/22/18 05:03 RBC Morph Micro Appear 2+ ANISOCYTOSIS (NORMAL) 2+ POIKILOCYTOSIS (NORMAL) 2+ MICROCYTOSIS (NORMAL) 3+ HYPOCHROMASIA (NORMAL) 09/21/18 02:00 RBC Morph Micro Appear 2+ ANISOCYTOSIS (NORMAL) 2+ POIKILOCYTOSIS (NORMAL) 2+ MICROCYTOSIS (NORMAL) 3+ HYPOCHROMASIA (NORMAL) 09/21/18 02:00 RBC Morph Micro Appear 2+ ANISOCYTOSIS (NORMAL) 2+ POIKILOCYTOSIS (NORMAL) 2+ MICROCYTOSIS (NORMAL) 3+ HYPOCHROMASIA (NORMAL) 09/21/18 02:00 RBC Morph Micro Appear 1+ ANISOCYTOSIS (NORMAL) 1+ POIKILOCYTOSIS (NORMAL) 09/22/18 05:03 RBC Morph Micro Appear 1+ ANISOCYTOSIS (NORMAL) 1+ POIKILOCYTOSIS (NORMAL) 09/22/18 05:03 PT 13.8 secs (9.9-12.6) H 09/21/18 02:00 INR 1.2 (0.8-1.2) 09/21/18 02:00 Sodium 139 mmol/L (135-145) 09/24/18 04:52 Potassium 3.6 mmol/L (3.5-5.0) 09/24/18 04:52 Chloride 103 mmol/L (101-111) 09/24/18 04:52 Carbon Dioxide 24 mmol/L (21-32) 09/24/18 04:52 Anion Gap 12.0 (6-13) 09/24/18 04:52 BUN 16 mg/dL (6-20) 09/24/18 04:52 Creatinine 1.0 mg/dL (0.6-1.2) 09/24/18 04:52 Estimated GFR (MDRD) 76 (>89) L 09/24/18 04:52 Glucose 102 mg/dL (70-100) H 09/24/18 04:52 Calcium 8.8 mg/dL (8.5-10.3) 09/24/18 04:52 Magnesium 1.8 mg/dL (1.7-2.8) 09/22/18 13:50 Total Bilirubin 0.3 mg/dL (0.2-1.0) 09/24/18 04:52 AST 24 IU/L (10-42) 09/24/18 04:52 ALT 23 IU/L (10-60) 09/24/18 04:52 Alkaline Phosphatase 46 IU/L (42-121) 09/24/18 04:52 Troponin I < 0.04 ng/mL (<0.49) 09/21/18 13:42 B-Natriuretic Peptide 319 pg/mL (5-100) H 09/24/18 04:52 Total Protein 5.4 g/dL (6.7-8.2) L 09/24/18 04:52 Albumin 2.9 g/dL (3.2-5.5) L 09/24/18 04:52 Globulin 2.5 g/dL (2.1-4.2) 09/24/18 04:52 Albumin/Globulin Ratio 1.2 (1.0-2.2) 09/24/18 04:52 Urine Opiates Screen POSITIVE (NEGATIVE) H 09/21/18 10:20 Ur Oxycodone Screen NEGATIVE (NEGATIVE) 09/21/18 10:20 Urine Methadone Screen NEGATIVE (NEGATIVE) 09/21/18 10:20 Ur Propoxyphene Screen NEGATIVE (NEGATIVE) 09/21/18 10:20 Ur Barbiturates Screen NEGATIVE (NEGATIVE) 09/21/18 10:20 Ur Tricyclics Screen NEGATIVE (NEGATIVE) 09/21/18 10:20 Ur Phencyclidine Scrn NEGATIVE (NEGATIVE) 09/21/18 10:20 Ur Amphetamine Screen NEGATIVE (NEGATIVE) 09/21/18 10:20 U Methamphetamines Scrn NEGATIVE (NEGATIVE) 09/21/18 10:20 U Benzodiazepines Scrn NEGATIVE (NEGATIVE) 09/21/18 10:20 Urine Cocaine Screen NEGATIVE (NEGATIVE) 09/21/18 10:20 U Cannabinoids Screen POSITIVE (NEGATIVE) H 09/21/18 10:20 Blood Type O POSITIVE 09/21/18 02:45 Blood Type Recheck O POSITIVE 09/21/18 02:00 Antibody Screen NEGATIVE 09/21/18 02:45 Crossmatch IS Only See Detail 09/21/18 02:45 Sepsis Event Note (H) - Evaluation Current Stage of Sepsis: Ruled out ABX Reporting Has patient been on IV antibiotics over the past 48 hours?: No
--- NOTE | 2018-09-24 10:36 | Discharge Plan ---
Discharge Plan Disposition: 01 Home, Self Care Condition: Good Prescriptions: Pantoprazole Sodium [Protonix] 20 mg PO BID #60 tablet. Sucralfate [Carafate] 1 gm PO QID #120 tablet Diet: Regular Activity Restrictions: Activity as Tolerated Shower Restrictions: No Driving Restrictions: No Weight Bearing: Full Weight Additional Instructions or Follow Up instructions: You were admitted for GI bleeding, and underwent a EGD procedure in which a bleeding site was cauterized. You were also found to have hemorrhoid/fissures that were surgically repaired. Please continue the proton pump inhibitor and Carafate. See your PCP within one week to discuss when a good time will be to restart your blood thinners. Please follow up outpatient with the GI/general surgery. No Smoking: If you smoke, Please STOP! Call for help. Follow-up with: Dylon Hull MD [Primary Care Provider] -
--- NOTE | 2018-09-24 10:47 | DISCHARGE SUMMARY ---
"Discharge Summary Admit Date: 09/21/18 Discharge Date: 09/24/18 Discharging Provider: BRYSON Flor Primary Care Provider: Dylon Hull Code Status: Attempt Resuscitation Condition at Discharge: Good Discharge Disposition: Home, Self Care - DIAGNOSES Admission Diagnoses: Gastrointestinal hemorrhage, unspecified (K92.2) Anemia, unspecified (D64.9) Unspecified hemorrhoids (K64.9) Anal fissure, unspecified (K60.2) Essential (primary) hypertension (I10) Athscl heart disease of [place] coronary artery w/o ang pctrs (I25.10) Anxiety disorder, unspecified (F41.9) Discharge Diagnoses with Status of Each Condition: Acute blood loss anemia (D62) ongoing, no further bleeding is suspected, stable. Hemorrhoids (K64.9) chronic, now post op. S/P hemorrhoidectomy (Z98.890) Dr Piotr Fair performed on 09/23/18, stable. Gastric ulcer (K25.9) chronic, PPI and carafate prescribed. Constipation (K59.00) chronic, continue daily Miralax. Ischemic cardiomyopathy (I25.5) chronic, no evidence of heart failure during this stay, stable. History of coronary artery stent placement (Z95.5) chronic, not currently on Plavix or ASA. Will need follow up with PCP/Conical Mixer. Anxiety disorder (F41.9) chronic, stable, home with Mother. CAD (coronary artery disease) (I25.10) chronic, stable. Hypertension (I10) chronic, stable. Nodule of left lung (R91.1) chronic, stable. Emphysema, unspecified (J43.9) chronic, stable. 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 - HPI History of Present Illness: Missael Irizarry is a 58-year old male with a past medical history of hypertension, h yperlipidemia, [place], angina, coronary stents, ischemic cardiomyopathy, GERD, gastric ulcers, hemorrhoids, anal fissures, lung nodules, anxiety disorders and depression. He presented to the ED with complaints of anal pain. This is his third presentation to the ED today. He had an outpatient surgical appointment earlier in the day with the same complain. He was told he had anal fissures and prescribed a topical cream. However he felt his pain was unbearable so he came to the ED. He was initially prescribed tylenol #3 which he says gave him stomach upset. On the following presentation he was given tylenol #4 with minimal relief. At home he decided to sit in a warm bath. He reports passing out when he was getting out of the bath. When he came to, he had an episode of dark emesis. This was followed by en episode of diarrhea which was equally dark in appearance. He denied it being black/tarry. He denies any alcohol consumption or NSAID use, although takes daily ASA and Plavix as instructed by his shoe sticks repairer. He reports some dyspnea lately. He denies chest or abdominal pain. In the ED, work up included a CBC where he was found to have a hemoglobin of 5.8. As a result he is being admitted for further treatment and a general surgery consult in the event of a possible scope. - CONSULTS | PROCEDURES Consultations: General surgery-Dr. Walker and Dr. Piotr Fair Procedures: EGD with biopsy and injection on 09/21/[address] ulcers [address] Dr. Walker. Hemorrhoidectomy on 09/23/[address] Piotr Fair. No complications from either procedure upon discharge. - HOSPITAL COURSE Hospital Course: The patient was found to be severely anemic with a hemoglobin of only 5.8 upon admission, was also symptomatic with hypotension. He received a total of 3 units of PRBCs. His final hemoglobin prior to discharge was 7.3 and he was hemodynamically stable, ambulatory with no oxygen needs. He underwent an EGD in which the probable bleeding site was injected with epinephrine, and also a hemorrhoidectomy as they had worsened during his stay and caused unbearable pain. He was anxious to return home with his mother and was transported via private car. He refused a wheelchair ride to the car. - ALLERGIES Allergies/Adverse Reactions: Allergies Allergy/AdvReac Type Severity Reaction Status Date / Time ibuprofen Allergy Nausea Verified 09/21/18 01:24 - MEDICATIONS Home Medications: Ambulatory Orders Medication Instructions Recorded Confirmed Lisinopril 10 mg PO DAILY 01/10/17 09/21/18 Atorvastatin Calcium [Lipitor] 80 mg PO DAILY 09/21/18 09/21/18 Pantoprazole Sodium [Protonix] 20 mg PO BID #60 tablet. 09/24/18 Sucralfate [Carafate] 1 gm PO QID #120 tablet 09/24/18 - PHYSICAL EXAM AT DISCHARGE General Appearance: positive: No acute distress, Alert Eyes Bilateral: positive: PERRL ENT: positive: Pharynx nml, No signs of dehydration Neck: positive: Thyroid nml, No JVD Respiratory: positive: Chest non-tender, No respiratory distress, Breath sounds nml Cardiovascular: positive: Regular rate & rhythm, No gallop, Systolic murmur Peripheral Pulses: positive: 2+ Abdomen: positive: Non-tender, Nml bowel sounds Back: positive: Nml inspection Skin: positive: No rash, Warm, Dry, Other (pale) Extremities: positive: Non-tender, Full ROM, Nml appearance, No pedal edema Neurologic/Psychiatric: positive: Oriented x3, CN's nml (2-12), Motor nml, Sensation nml, Mood/affect nml Reflexes: Bicep (R): 3+, Bicep (L): 3+ - LABS Result Diagrams: 09/24/18 04:52 09/24/18 04:52 - DIAGNOSTIC IMAGING Diagnostic Imaging Results: Final report reviewed Diagnostic Imaging Results Comments: EXAM: CT ABDOMEN AND PELVIS EXAM DATE: 09/22/2018 01:17 PM. IMPRESSION: 1. Normal appendix. 2. Mild distal colonic diverticulosis. No div erticulitis. Small to moderate volume of stool in colon. 3. No evidence for pelvic or prostate abscess or fluid collection. No evidence for perianal or perirectal abscess by CT. 4. Mild aneurysmal dilatation of the infrarenal abdominal aorta measuring up to 3.2 cm. 5. Nonobstructing renal calculi. No CT evidence of pyelonephritis. - SEPSIS Current Stage of Sepsis: Ruled out - FOLLOW UP Follow Up: Disposition: Home with mother Prescriptions: Pantoprazole Sodium [Protonix] 20 mg PO BID #60 tablet. Sucralfate [Carafate] 1 gm PO QID #120 tablet Miralax 17g PO daily Additional Instructions or Follow Up instructions: You were admitted for GI bleeding, and underwent a EGD procedure in which a bleeding site was cauterized. You were also found to have hemorrhoid/fissures that were surgically repaired. Please continue the proton pump inhibitor and Carafate. See your PCP within one week to discuss when a good time will be to restart your blood thinners. Please follow up outpatient with the GI/general surgery. - TIME SPENT Time Spent in Discharge (Minutes): 50"
[2018-09-24 11:33] VITALS: BP 112/63
== END 2018-09-24 12:05 | disposition home or self-care (01) | DRG 378 ==
LOC: EDUNIT# → ED 01:18 → MS2 03:49
PROVIDERS: ADMIT Internal Medicine; ATTEND Nurse Practitioner
PROC: 0W3P8ZZ Control Bleeding in Gastrointestinal Tract, Via Natural or Artificial Opening Endoscopic (ICD-10-PCS; principal; 2018-09-23 08:54)
DX: K25.4 Chronic or unspecified gastric ulcer with hemorrhage (principal); D62 Acute posthemorrhagic anemia; I95.9 Hypotension, unspecified; I10 Essential (primary) hypertension; I25.10 Atherosclerotic heart disease of native coronary artery without angina pectoris; Z95.5 Presence of coronary angioplasty implant and graft; I25.2 Old myocardial infarction; K64.5 Perianal venous thrombosis; K64.8 Other hemorrhoids; K59.00 Constipation, unspecified; I25.5 Ischemic cardiomyopathy; F41.9 Anxiety disorder, unspecified; R91.1 Solitary pulmonary nodule; J43.9 Emphysema, unspecified; Z87.891 Personal history of nicotine dependence; E78.5 Hyperlipidemia, unspecified; K21.9 Gastro-esophageal reflux disease without esophagitis; F32.9 Major depressive disorder, single episode, unspecified; Z79.82 Long term (current) use of aspirin; Z79.02 Long term (current) use of antithrombotics/antiplatelets; K60.2 Anal fissure, unspecified
CPT/HCPCS: 36415; 74177; 80048; 80053; 80306; 83735; 83880; 84484; 85014; 85018; 85025; 85610; 86850; 86900; 86901; 86920; 87081; 96374; 99284; 99285

== ENCOUNTER 2019-11-24 12:42 | Outpatient (CLI) | payer MEDICAID | END 2019-11-24 12:43 | disposition critical access hospital (66) | LOC: EMS 12:42 | PROVIDERS: ATTEND Surgery | DX: R31.9 Hematuria, unspecified (principal); R10.9 Unspecified abdominal pain; R11.2 Nausea with vomiting, unspecified | CPT/HCPCS: A0425; A0427 ==

== ENCOUNTER 2019-11-24 13:05 | Emergency (ER) | payer MEDICAID ==
[2019-11-24] MEDS ORDERED: SODIUM CHLORIDE 0.9% 1,000 ML IV ONE (13:23)
--- NOTE | 2019-11-24 13:29 | ED Physician Documentation ---
PD HPI ABD PAIN - Stated complaint Stated Complaint: R SIDE PX - Chief complaint Chief Complaint: Abd Pain - History obtained from History obtained from: Patient - History of Present Illness Timing - onset: Today Timing - details: Gradual onset Quality: Cramping, Pain Location: LUQ Associated symptoms: Nausea, Vomiting, Diarrhea, Hematuria, Dizzy. No: Fever, Melena, Hematochezia, Dysuria Similar symptoms before: Diagnosis (Had a urinary tract infection with blood in the urine years ago) Recently seen: Not recently seen - Additional information Additional information: This is a 59-year-old man who Presents by ambulance with complaints that last night his urine was very dark and brown and this morning it looked orange and red like blood. He has had this happen in the past many years ago when he had a urinary tract infection and was treated with antibiotics but he denies any dysuria. This morning he experienced some "crampy" left upper abdominal pain that is now gone away. He was nauseous with dry heaves at home and he received Zofran in route but no pain medications. Had some diarrhea this morning. He is feeling a little dizzy but has not passed out. He felt little short of breath earlier. Reports a history of emphysema but not significant enough that he needs inhalers. He quit smoking 10 years ago. Denies pain radiating down his legs. Denies fever. He does have a history of a GI bleed requiring endoscopy with cautery no abdominal surgeries. Patient reports "feeling his veins" throughout his body in the morning sometimes when his blood pressure is elevated sometimes is 164/100 he just takes an extra dose of lisinopril and that seems to bring it under control. Denies history of kidney stones. He lives with his mother and is on disability for coronary stents. Review of Systems Constitutional: denies: Fever Eyes: denies: Decreased vision Nose: denies: Rhinorrhea / runny nose, Congestion Throat: denies: Sore throat Cardiac: denies: Palpitations, Pedal edema Respiratory: reports: Dyspnea. denies: Cough GI: reports: Abdominal Pain, Nausea, Vomiting. denies: Diarrhea, Bloody / black stool : reports: Hematuria. denies: Dysuria Neurologic: reports: Near syncope PD PAST MEDICAL HISTORY - Past Medical History Cardiovascular: Hypertension, Coronary artery disease, [place] Respiratory: None Endocrine/Autoimmune: None Psych: Anxiety - Past Surgical History Past Surgical History: Yes Cardiovascular: Coronary stent - Present Medications Home Medications: Ambulatory Orders Medication Instructions Recorded Confirmed lisinopriL [Lisinopril] 10 mg PO DAILY 01/10/17 09/21/18 Atorvastatin Calcium [Lipitor] 80 mg PO DAILY 09/21/18 09/21/18 Pantoprazole Sodium [Protonix] 20 mg PO BID #60 tablet. 09/24/18 Sucralfate [Carafate] 1 gm PO QID #120 tablet 09/24/18 Ondansetron Odt [Zofran] 4 mg TL Q6H PRN #10 tablet 11/24/19 Tamsulosin [Flomax] 0.4 mg PO DAILY #14 capsule 11/24/19 - Allergies Allergies/Adverse Reactions: Allergies Allergy/AdvReac Type Severity Reaction Status Date / Time ibuprofen Allergy Nausea Verified 09/21/18 01:24 - Social History Does the pt smoke?: No Smoking Status: Current every day smoker Does the pt drink ETOH?: No Does the pt have substance abuse?: Yes - Immunizations Immunizations are current?: No Immunizations: TDAP >10years/unknown - POLST Patient has POLST: No PD ED PE NORMAL - Vitals Vital signs reviewed: Yes - General General: Alert and oriented X 3, No acute distress, Well developed/nourished - HEENT HEENT: Atraumatic, PERRL, Moist mucous membranes, Other (He looks little pale) - Neck Neck: No adenopathy, Thyroid normal - Cardiac Cardiac: RRR, No murmur, Strong equal pulses - Respiratory Respiratory: No respiratory distress, Clear bilaterally - Abdomen Abdomen: Normal bowel sounds, Soft, Non tender, Non distended, No organomegaly, Other (No pulsatile mass) - Back Back: No CVA TTP - Derm Derm: Normal color, Warm and dry, No rash - Extremities Extremities: No edema - Neuro Neuro: Alert and oriented X 3, No motor deficit, No sensory deficit, Normal speech - Psych Psych: Normal mood, Normal affect Results - Vitals Vitals: Vital Signs - 24 hr 11/24/19 11/24/19 13:10 16:01 Temperature 36.6 C 36.8 C Heart Rate 73 65 Respiratory 16 16 Rate Blood Pressure 164/94 H 138/94 H O2 Saturation 98 97 Oxygen O2 Source Room air - Labs Labs: Laboratory Tests 11/24/19 11/24/19 11/24/19 13:35 13:35 15:00 WBC 7.4 RBC 4.66 L Hgb 15.2 Hct 43.9 MCV 94.2 H MCH 32.6 H MCHC 34.6 RDW 12.7 Plt Count 133 MPV 10.1 Neut # (Auto) 6.0 Lymph # (Auto) 0.8 L [place] # (Auto) 0.5 Eos # (Auto) 0.1 Baso # (Auto) 0.0 Absolute Nucleated RBC 0.00 Nucleated RBC % 0.0 Sodium 139 Potassium 3.8 Chloride 106 Carbon Dioxide 24 Anion Gap 9.0 BUN 26 H Creatinine 0.9 Estimated GFR (MDRD) 86 L Glucose 139 H Calcium 9.0 Total Bilirubin 0.7 AST 29 ALT 33 Alkaline Phosphatase 61 Total Protein 6.4 L Albumin 3.9 Globulin 2.5 Albumin/Globulin Ratio 1.6 Lipase 185 H Urine Color DARK YELLOW Urine Clarity HAZY Urine pH 6.5 Ur Specific [place] 1.010 Urine Protein TRACE Urine Glucose (UA) NEGATIVE Urine Ketones NEGATIVE Urine Occult Blood LARGE H Urine Nitrite NEGATIVE Urine Bilirubin NEGATIVE Urine Urobilinogen 0.2 (NORMAL) Ur Leukocyte Esterase NEGATIVE Urine RBC TNTC H Urine WBC 0-3 Ur Squamous Epith Cells RARE Squamous Urine Bacteria Rare Urine Casts 0-2 Hyaline Casts Ur Microscopic Review INDICATED Urine Culture Comments NOT INDICATED - Rads (name of study) CT abd/pelvis Radiology: EMP read contemporaneously, See rad report (4mm stone L mid-ureter without hydronephrosis; multiple small renal stones bilaterally) PD MEDICAL DECISION MAKING - ED course Complexity details: reviewed results, re-evaluated patient, d/w patient ED course: 1520: Urinalysis did show too numerous to count red blood cells on microscopic. His lipase is 185 but the patient says he is not having any pain now and his abdomen is completely soft to palpation. I have no old lipase to compare this to. BUN and creatinine are normal. His white blood cell count is normal and he is not anemic. CT scan of the abdomen pelvis to rule out kidney stone is pending. 1614: CT does show a stone in the left mid ureter without significant hydronephrosis. There are several other small calculi in the right kidney. Patient has a small abdominal aneurysm of 3.6 cm. No evidence of inflammatory changes of the pancreas. He is now pain-free. I think he can be discharged home with instructions to Strain his urine and save the stone if it is passed. Will provide a prescription for Flomax, Zofran, hydrocodone. He will be given a referral number for urology but also instructions to follow-up with his primary care provider if he cannot get into see urology in a quick manner. 1625: Patient declined a prescription for hydrocodone stating that he does not like the way pain medications make him feel. Departure - Departure Disposition: 01 Home, Self Care Clinical Impression: Renal colic on left side, AAA (abdominal aortic aneurysm) without rupture Hematuria Qualifiers: Hematuria type: gross Qualified Code(s): R31.0 - Gross hematuria Condition: Good Instructions: ED Stone Renal W Colic, ED Aneurysm Abdominal Aortic Stable Follow-Up: Dylon Hull MD [Primary Care Provider] - [facility] [Provider Group] Prescriptions: Ondansetron Odt [Zofran] 4 mg TL Q6H PRN #10 tablet PRN Reason: Nausea / Vomiting Tamsulosin [Flomax] 0.4 mg PO DAILY #14 capsule Comments: Drink lots of water. Strain your urine and save the stone if it is passed. Use the Zofran if you are feeling nauseous or vomiting. You have declined a prescription for hydrocodone to help with pain so take Tylenol if needed. Take the Flomax daily that can help relax the ureter to pass the stone. Contact the [place] [facility] tomorrow to schedule a follow-up appointment. Return to the emergency department if the pain is severe and is not letting up, you are vomiting and cannot keep anything down, you develop a fever or are not urinating. You should make your primary care provider aware of the abdominal aortic aneurysm so that this can be monitored on an outpatient basis. Discharge Date/Time: 11/24/19 16:39
[2019-11-24 13:39] LABS: BASOPHILS % (AUTO) 0.5 %; EOSINOPHILS # (AUTO) 0.1 10^3/uL (0.0-0.7); EOSINOPHILS % (AUTO) 0.8 %; HGB - HEMOGLOBIN 15.2 g/dL (14.0-18.0); LYMPHOCYTES # (AUTO) 0.8 10^3/uL (1.5-3.5); LYMPHOCYTES % (AUTO) 10.1 %; MEAN CORPUSCULAR HEMOGLOBIN 32.6 pg (27.0-31.0); MEAN CORPUSCULAR HGB CONC 34.6 g/dL (32.0-36.0); MEAN CORPUSCULAR VOLUME 94.2 fL (80.0-94.0); MEAN PLATELET VOLUME 10.1 fL (7.4-11.4); MONOCYTES # (AUTO) 0.5 10^3/uL (0.0-1.0); MONOCYTES % (AUTO) 7.2 %; PLT - PLATELET COUNT 133 10^3/uL (130-450); RED BLOOD COUNT 4.66 10^6/uL (4.70-6.10); RED CELL DISTRIBUTION WIDTH 12.7 % (12.0-15.0); WHITE BLOOD COUNT 7.4 x10^3/uL (4.8-10.8)
[2019-11-24 13:56] LABS: ALBUMIN 3.9 g/dL (3.2-5.5); ALBUMIN/GLOBULIN RATIO 1.6 (1.0-2.2); BILIRUBIN,TOTAL 0.7 mg/dL (0.2-1.0); CREATININE 0.9 mg/dL (0.6-1.2); TOTAL PROTEIN 6.4 g/dL (6.7-8.2)
[2019-11-24 15:09] LABS: BILIRUBIN,URINE NEGATIVE (NEGATIVE); GLUCOSE, URINE (UA) NEGATIVE (NEGATIVE); KETONES,URINE (UA) NEGATIVE (NEGATIVE); LEUKOCYTE ESTERASE, URINE NEGATIVE (NEGATIVE); NITRITE,URINE NEGATIVE (NEGATIVE); OCCULT BLOOD,URINE LARGE (NEGATIVE); PH,URINE 6.5 PH (5.0-7.5); PROTEIN,URINE TRACE mg/dL (NEGATIVE); UROBILINOGEN,URINE 0.2 (NORMAL) E.U./dL (NORMAL)
[2019-11-24 15:13] LABS: CLARITY,URINE HAZY (CLEAR)
[2019-11-24 15:19] LABS: BACTERIA,URINE Rare /HPF (None Seen); RBC,URINE TNTC /HPF (0-5); SQUAMOUS EPITHELIAL CELL,UR RARE Squamous (<= Few)
[2019-11-24 15:20] LABS: CASTS, URINE 0-2 Hyaline Casts /LPF
[2019-11-24 16:02] VITALS: BP 138/94
--- NOTE | 2019-11-24 16:06 | CT Report ---
Reason: abdominal pain Procedure Date: 11/24/2019 Accession Number: [id number] / [id number] Procedure: CT - Abdomen/Pelvis WO CPT Code: Final Report FULL RESULT: EXAM: CT ABDOMEN AND PELVIS EXAM DATE: 11/24/2019 03:48 PM. CLINICAL HISTORY: Abdominal pain. COMPARISONS: ABDOMEN/PELVIS W/ 09/22/2018 12:56 PM. TECHNIQUE: Routine helical CT imaging was performed through the abdomen and pelvis. IV contrast: None. Enteric contrast: No. Reconstructions: Coronal and sagittal. In accordance with CT protocol optimization, one or more of the following dose reduction techniques were utilized for this exam: automated exposure control, adjustment of mA and/or KV based on patient size, or use of iterative reconstructive technique. FINDINGS: Lung Bases: Mild dependent basal atelectasis. Coronary artery calcification and/or stenting. Liver: Solitary nonobstructing 2 mm right upper pole renal calculus. Two small left mid to lower pole nonobstructing renal calculi measuring up to approximately 3 mm. No hydronephrosis. There is a 4 mm calculus at the expected course of the left ureter near the pelvic brim (), new from prior. Gallbladder/Bile Ducts: Unremarkable. Spleen: Normal. Pancreas: Normal. Adrenal Glands: Normal. Kidneys: Normal. No masses or hydronephrosis. Peritoneal Cavity/Bowel: No free air or free fluid. No mass or acute inflammatory process. No obstruction. The appendix is well visualized and normal. No pathologic lymphadenopathy. Pelvic Organs: Decompressed urinary bladder grossly unremarkable. Prostate gland is unremarkable. Vasculature: Infrarenal abdominal aortic aneurysm measuring up to 36 mm, previously 34 mm at a similar level. Scattered aortoiliac atheromatous calcifications. Bones: Advanced disk degeneration at L3-L4 as before with otherwise mild multilevel lumbar degeneration. No acute fracture or suspicious bony lesion. Other: Small fat-containing left inguinal hernia or cord lipoma. IMPRESSION: 1. Mid left ureteral calculus measuring 4 mm without convincing obstruction. 2. Small nonobstructing bilateral renal calculi. 3. Infrarenal abdominal aortic aneurysm measuring 36 mm, appears slightly increased from prior. 4. Other findings as noted above. RADIA
== END 2019-11-24 16:39 | disposition home or self-care (01) ==
LOC: EDUNIT# → EDBD → ED 13:05
DX: N20.2 Calculus of kidney with calculus of ureter (principal); R31.9 Hematuria, unspecified; I71.4 Abdominal aortic aneurysm, without rupture; I10 Essential (primary) hypertension; F17.200 Nicotine dependence, unspecified, uncomplicated
CPT/HCPCS: 36415; 74176; 80053; 81001; 81003; 83690; 85025; 87086; 96360; 99284

== ENCOUNTER 2019-11-26 15:10 | Outpatient (CLI) | payer MEDICAID | END 2019-11-26 15:11 | disposition short-term general hospital (02) | LOC: EMS 15:10 | PROVIDERS: ATTEND Surgery | DX: R07.89 Other chest pain (principal); R53.1 Weakness | CPT/HCPCS: A0425; A0427; A0999 ==

== ENCOUNTER 2020-05-20 09:55 | Outpatient (CLI) | payer MEDICAID ==
[2020-05-20 15:17] LABS: HGB - HEMOGLOBIN 15.9 g/dL (14.0-18.0); MEAN CORPUSCULAR HEMOGLOBIN 31.7 pg (27.0-31.0); MEAN CORPUSCULAR HGB CONC 33.6 g/dL (32.0-36.0); MEAN CORPUSCULAR VOLUME 94.2 fL (80.0-94.0); MEAN PLATELET VOLUME 10.6 fL (7.4-11.4); RED BLOOD COUNT 5.02 10^6/uL (4.70-6.10); RED CELL DISTRIBUTION WIDTH 12.9 % (12.0-15.0); WHITE BLOOD COUNT 6.1 x10^3/uL (4.8-10.8)
[2020-05-20 15:29] LABS: ALBUMIN/GLOBULIN RATIO 1.5 (1.0-2.2); ALKALINE PHOSPHATASE 69 IU/L (42-121); ALT ALANINE AMINOTRANSFERASE 37 IU/L (10-60); AST ASPARTATE AMINOTRANSFERASE 30 IU/L (10-42); BILIRUBIN,TOTAL 0.7 mg/dL (0.2-1.0); BUN - BLOOD UREA NITROGEN 27 mg/dL (6-20); CALCIUM 9.4 mg/dL (8.5-10.3); CARBON DIOXIDE - CO2 23 mmol/L (21-32); CHLORIDE 109 mmol/L (101-111); CHOL/HDL RATIO 3.4 (<5.0); CHOLESTEROL 122 mg/dL; CREATININE 0.9 mg/dL (0.6-1.2); GLUCOSE 111 mg/dL (70-100); HDL CHOLESTEROL 36 mg/dL; LDL CHOLESTEROL,CALCULATED 65 mg/dL; LDL/HDL RATIO 1.8 (<3.6); SODIUM 139 mmol/L (135-145); TOTAL PROTEIN 6.6 g/dL (6.7-8.2); VLDL CHOLESTEROL 21 mg/dL
== END 2020-05-20 09:56 | disposition home or self-care (01) ==
LOC: LAB.S 09:55
PROVIDERS: ATTEND Internal Medicine
DX: Z00.00 Encounter for general adult medical examination without abnormal findings (principal); E78.5 Hyperlipidemia, unspecified; Z12.5 Encounter for screening for malignant neoplasm of prostate
CPT/HCPCS: 36415; 80053; 80061; 83721; 84153; 85027

== ENCOUNTER 2020-07-08 15:11 | Emergency (ER) | payer MEDICAID ==
[2020-07-08] MEDS ORDERED: NITROGLYCERIN SL 0.4 MG TABLET SL STA (15:29)
[2020-07-08] MEDS ORDERED: ASPIRIN CHEW 81 MG TABLET PO STA (15:29)
--- NOTE | 2020-07-08 15:38 | ED Physician Documentation ---
PD HPI CHEST PAIN - Stated complaint Stated Complaint: CP, CHEST TIGHTNESS, SOA - Chief complaint Chief Complaint: Cardiac - History obtained from History obtained from: Patient - Additional information Additional information: 60-year-old gentleman with history of coronary disease and stents in place was on his way to the hospital anyway, he was bringing his mom here for diarrhea. He is actually had diarrhea for couple of days but is not feeling too bad but on the way here developed chest tightness similar to prior panic attacks. The chest tightness is now gone. Review of Systems Ten Systems: 10 systems reviewed and negative Constitutional: reports: Reviewed and negative Eyes: reports: Reviewed and negative Cardiac: reports: Chest pain / pressure. denies: Palpitations, Pedal edema Respiratory: denies: Dyspnea, Cough PD PAST MEDICAL HISTORY - Past Medical History Cardiovascular: Hypertension, Coronary artery disease, [place] Respiratory: None Endocrine/Autoimmune: None GI: GI bleed Psych: Anxiety - Past Surgical History Past Surgical History: Yes Cardiovascular: Coronary stent - Present Medications Home Medications: Ambulatory Orders Medication Instructions Recorded Confirmed lisinopriL [Lisinopril] 10 mg PO DAILY 01/10/17 09/21/18 Atorvastatin Calcium [Lipitor] 80 mg PO DAILY 09/21/18 09/21/18 Pantoprazole Sodium [Protonix] 20 mg PO BID #60 tablet. 09/24/18 Sucralfate [Carafate] 1 gm PO QID #120 tablet 09/24/18 Ondansetron Odt [Zofran] 4 mg TL Q6H PRN #10 tablet 11/24/19 Tamsulosin [Flomax] 0.4 mg PO DAILY #14 capsule 11/24/19 - Allergies Allergies/Adverse Reactions: Allergies Allergy/AdvReac Type Severity Reaction Status Date / Time ibuprofen Allergy Nausea Verified 07/08/20 15:23 - Social History Does the pt smoke?: No Smoking Status: Current every day smoker Does the pt drink ETOH?: No Does the pt have substance abuse?: Yes - Immunizations Immunizations are current?: No Immunizations: TDAP >10years/unknown - POLST Patient has POLST: No PD ED PE NORMAL - Vitals Vital signs reviewed: Yes - General General: Alert and oriented X 3, No acute distress - HEENT HEENT: PERRL, EOMI - Neck Neck: Supple, no meningeal sign, No bony TTP - Cardiac Cardiac: RRR, No murmur - Respiratory Respiratory: No respiratory distress, Clear bilaterally - Abdomen Abdomen: Normal bowel sounds, Soft, Non tender Results - Vitals Vitals: Vital Signs - 24 hr 07/08/20 07/08/20 07/08/20 15:20 15:53 16:23 Temperature 36.7 C Heart Rate 74 71 72 Respiratory 20 19 17 Rate Blood Pressure 138/89 H 140/92 H 129/88 H O2 Saturation 100 100 99 07/08/20 07/08/20 07/08/20 16:30 17:00 17:30 Temperature Heart Rate 70 70 72 Respiratory 18 19 19 Rate Blood Pressure 136/70 H 125/88 H 124/87 H O2 Saturation 98 100 99 Oxygen O2 Source Room air - EKG (time done) 1520 Rate: Rate (enter#) (82) Rhythm: NSR [place]: Normal Intervals: Normal [place] Ischemia: Other (Anterior Q waves with small ST elevation which could be strain or acute in V1 through V3.) Compare to prior EKG: Unchanged from prior EKG (Looking the last EKG on the chart this was without significant change and the ST-T changes were present then.) Computer interpretation: Agree with computer - Labs Labs: Laboratory Tests 07/08/20 07/08/20 07/08/20 15:32 15:32 15:32 WBC 6.5 RBC 4.84 Hgb 15.7 Hct 45.1 MCV 93.2 MCH 32.4 H MCHC 34.8 RDW 12.7 Plt Count 148 MPV 10.1 Neut # (Auto) 4.2 Lymph # (Auto) 1.6 [place] # (Auto) 0.5 Eos # (Auto) 0.1 Baso # (Auto) 0.1 Absolute Nucleated RBC 0.00 Nucleated RBC % 0.0 PT 11.3 INR 1.0 Sodium 137 Potassium 4.1 Chloride 106 Carbon Dioxide 22 Anion Gap 9.0 BUN 31 H Creatinine 0.8 Estimated GFR (MDRD) 98 Glucose 105 H Calcium 9.3 Total Bilirubin 0.6 AST 23 ALT 32 Alkaline Phosphatase 76 Troponin I High Sens Total Protein 6.7 Albumin 3.8 Globulin 2.9 Albumin/Globulin Ratio 1.3 Lipase 636 H 07/08/20 07/08/20 15:32 17:00 WBC RBC Hgb Hct MCV MCH MCHC RDW Plt Count MPV Neut # (Auto) Lymph # (Auto) [place] # (Auto) Eos # (Auto) Baso # (Auto) Absolute Nucleated RBC Nucleated RBC % PT INR Sodium Potassium Chloride Carbon Dioxide Anion Gap BUN Creatinine Estimated GFR (MDRD) Glucose Calcium Total Bilirubin AST ALT Alkaline Phosphatase Troponin I High Sens 6.1 6.6 Total Protein Albumin Globulin Albumin/Globulin Ratio Lipase PD MEDICAL DECISION MAKING - ED course ED course: When the EKG was initially handed to me, I was concerned for anterior STEMI and STEMI code was called and I immediately went into the room and took the history as above. Since his pain was gone the EKG was compared to prior EKGs on the chart and is it without much change and at that time the STEMI code was canceled and we will pursue further work-up in the in the department here. He remained pain-free in the department and delta troponins were done and negative. Departure - Departure Disposition: 01 Home, Self Care Clinical Impression: Chest pain Qualifiers: Chest pain type: unspecified Qualified Code(s): R07.9 - Chest pain, unspecified CAD (coronary artery disease) Qualifiers: Coronary Disease-Associated Artery/Lesion type: [place] artery [place] vs. transplanted heart: [place] heart Associated angina: angina presence unspecified Qualified Code(s): I25.10 - Atherosclerotic heart disease of [place] coronary artery without angina pectoris Condition: Good Record reviewed to determine appropriate education?: Yes Instructions: ED Chest Pain Atypical Unkn Cause Comments: No evidence of ongoing heart damage tonight. Return if worse. Follow-up with your metal plater, next available appointment. Continue current medications.
[2020-07-08] MEDS ORDERED: ASPIRIN CHEW 81 MG TABLET ONE (15:39)
[2020-07-08] MEDS ORDERED: METOPROLOL TARTRATE 50 MG TABLET ONE (15:39)
[2020-07-08] MEDS ORDERED: HEPARIN 5,000 UNIT/ML VIAL ONE (15:39)
[2020-07-08 15:43] LABS: BASOPHILS # (AUTO) 0.1 10^3/uL (0.0-0.1); BASOPHILS % (AUTO) 0.8 %; EOSINOPHILS # (AUTO) 0.1 10^3/uL (0.0-0.7); EOSINOPHILS % (AUTO) 2.1 %; HGB - HEMOGLOBIN 15.7 g/dL (14.0-18.0); LYMPHOCYTES # (AUTO) 1.6 10^3/uL (1.5-3.5); LYMPHOCYTES % (AUTO) 24.5 %; MEAN CORPUSCULAR HEMOGLOBIN 32.4 pg (27.0-31.0); MEAN CORPUSCULAR HGB CONC 34.8 g/dL (32.0-36.0); MEAN CORPUSCULAR VOLUME 93.2 fL (80.0-94.0); MEAN PLATELET VOLUME 10.1 fL (7.4-11.4); MONOCYTES # (AUTO) 0.5 10^3/uL (0.0-1.0); MONOCYTES % (AUTO) 7.8 %; NEUTROPHILS # (AUTO) 4.2 10^3/uL (1.5-6.6); NEUTROPHILS % (AUTO) 64.5 %; PLT - PLATELET COUNT 148 10^3/uL (130-450); RED BLOOD COUNT 4.84 10^6/uL (4.70-6.10); RED CELL DISTRIBUTION WIDTH 12.7 % (12.0-15.0); WHITE BLOOD COUNT 6.5 x10^3/uL (4.8-10.8)
[2020-07-08 15:46] LABS: PT - PROTHROMBIN TIME 11.3 secs (9.9-12.6)
--- NOTE | 2020-07-08 15:47 | XRAY Report ---
PROCEDURE: Chest 1 View X-Ray INDICATIONS: Chest Pain TECHNIQUE: One view of the chest was acquired. COMPARISON: Chest radiograph 01/27/2018 FINDINGS: Surgical changes and devices: None. Lungs and pleura: No pleural effusions or pneumothorax. Lungs are clear. Mediastinum: Mediastinal contours appear normal. Heart size is normal. Bones and chest wall: No suspicious bony lesions. Overlying soft tissues appear unremarkable. IMPRESSION: No acute cardiopulmonary abnormality. Reviewed by: Kapil Swift MD on 07/08/2020 3:46 PM [facility] Approved by: Kapil Swift MD on 07/08/2020 3:46 PM [facility] Station ID: [id number]
[2020-07-08 16:09] LABS: ALBUMIN 3.8 g/dL (3.2-5.5); ALBUMIN/GLOBULIN RATIO 1.3 (1.0-2.2); BILIRUBIN,TOTAL 0.6 mg/dL (0.2-1.0); CALCIUM 9.3 mg/dL (8.5-10.3); CREATININE 0.8 mg/dL (0.6-1.2); TOTAL PROTEIN 6.7 g/dL (6.7-8.2)
[2020-07-08 18:14] VITALS: BP 143/90
== END 2020-07-08 18:20 | disposition home or self-care (01) ==
LOC: ED 15:11
DX: R07.89 Other chest pain (principal); R94.31 Abnormal electrocardiogram [ECG] [EKG]; R74.8 Abnormal levels of other serum enzymes; I25.10 Atherosclerotic heart disease of native coronary artery without angina pectoris; I25.2 Old myocardial infarction; Z95.5 Presence of coronary angioplasty implant and graft; I10 Essential (primary) hypertension
CPT/HCPCS: 36415; 71045; 80053; 83690; 84484; 85025; 85610; 93005; 99284; A9270

== ENCOUNTER 2020-10-23 11:45 | Outpatient (CLI) | payer MEDICAID ==
--- NOTE | 2020-10-23 12:34 | CT Report ---
PROCEDURE: Low Dose Lung Cancer Screen INDICATIONS: FORMER SMOKER TECHNIQUE: Noncontrast low-dose 5 mm thick sections acquired from the pulmonary apices to the posterior costophr enic angles. 7 mm thick coronal and sagittal MIP reformats were then acquired. For radiation dose r eduction, the following was used: automated exposure control, adjustment of mA and/or kV according t o patient size. COMPARISON: 09/21/2016 CT chest FINDINGS: Image quality: Excellent. Lungs and pleura: Moderate bilateral apical predominant centrilobular and paraseptal emphysematous c hanges. Scarring with some cicatricial bronchiectasis in the anterior-medial right upper lobe with a somewhat nodular appearance on series 4 images 112 and series 4 images 129. Triangular 3 mm nodule in the lateral aspect of the left upper lobe on series 4 image 144. No focal consolidation. No pleural effusion or other significant pleural abnormality. Mediastinum: Heart size is normal. No pericardial effusion. No mediastinal adenopathy by size crit eria. Thoracic aorta and central pulmonary arteries are normal in size. Esophagus is normal in kyung tony. No hiatal hernia. Bones and chest wall: No suspicious bony lesions. No vertebral body compression fractures. No axil michelle or supraclavicular adenopathy by size criteria. The thyroid is normal in size. Abdomen: Visualized upper abdomen solid organs and bowel loops appear normal in the absence of contr ast. IMPRESSION: Nodular opacities in the right upper lobe which are thought to represent scarring, unchanged from 201 7 exam and statistically benign. Tiny 3 mm nodule in the lateral aspect of the left upper lobe, also unchanged and statistically benig n. Lung-RADS Category 2. Recommendation: Continued annual low-dose CT of the chest for lung cancer screening. Reviewed by: Chris Meade MD on 10/23/2020 12:33 PM PST Approved by: Chris Meade MD on 10/23/2020 12:33 PM PST Station ID: [id number]
== END 2020-10-23 11:46 | disposition home or self-care (01) ==
LOC: DI 11:45
PROVIDERS: ATTEND Internal Medicine
DX: Z12.2 Encounter for screening for malignant neoplasm of respiratory organs (principal); Z87.891 Personal history of nicotine dependence; R91.1 Solitary pulmonary nodule

== ENCOUNTER 2021-09-20 16:16 | Outpatient (CLI) | payer MEDICAID | END 2021-09-20 16:17 | disposition left against medical advice (07) | LOC: EMS 16:16 | DX: R07.89 Other chest pain (principal); R61 Generalized hyperhidrosis; R68.83 Chills (without fever) ==

== ENCOUNTER 2021-09-23 02:28 | Outpatient (CLI) | payer MEDICAID | END 2021-09-23 02:29 | disposition critical access hospital (66) | LOC: EMS 02:28 | DX: R07.9 Chest pain, unspecified (principal); R11.2 Nausea with vomiting, unspecified; R19.7 Diarrhea, unspecified; I10 Essential (primary) hypertension; I49.9 Cardiac arrhythmia, unspecified | CPT/HCPCS: A0425; A0427; A0999 ==

== ENCOUNTER 2021-09-23 02:49 | Emergency (ER) | payer MEDICAID ==
--- NOTE | 2021-09-23 03:06 | ED Physician Documentation ---
PD HPI NVD - Stated complaint Stated Complaint: CP/N/V - Chief complaint Chief Complaint: Cardiac - History obtained from History obtained from: Patient, EMS - History of Present Illness Timing - onset: How many days ago (3-4) Timing - duration: Days (3-4) Timing - details: Gradual onset, Still present Associated symptoms: Fever, Chest pain (this evening, noted substernal pressure.). No: Abdominal pain, Dysuria Contributing factors: No: Sick contact, Bad food, Recent antibiotics, Alcohol use Improved by: No: Vomiting Worsened by: Eating Similar symptoms before: Diagnosis (history of ACS with prior heart stents. Old labs show chronic elevated lipase; patient states no diagnosis with this.) Recently seen: Not recently seen Review of Systems Constitutional: reports: Fever, Myalgias Nose: denies: Rhinorrhea / runny nose, Congestion Throat: denies: Sore throat Cardiac: reports: Chest pain / pressure (after vomiting today.) Respiratory: denies: Cough GI: reports: Nausea, Vomiting, Diarrhea. denies: Abdominal Pain, Abdominal Swe lling, Constipation, Hematemesis, Bloody / black stool Neurologic: reports: Generalized weakness. denies: Focal weakness, Numbness, Near syncope, Headache PD PAST MEDICAL HISTORY - Past Medical History Cardiovascular: Hypertension, Coronary artery disease, [place] Respiratory: None Endocrine/Autoimmune: None GI: GI bleed, Other (denies history of pancreatitis.) Psych: Anxiety - Past Surgical History Past Surgical History: Yes Cardiovascular: Coronary stent - Present Medications Home Medications: Ambulatory Orders Medication Instructions Recorded Confirmed lisinopriL [Lisinopril] 10 mg PO DAILY 01/10/17 09/21/18 Atorvastatin Calcium [Lipitor] 80 mg PO DAILY 09/21/18 09/21/18 Pantoprazole Sodium [Protonix] 20 mg PO BID #60 tablet. 09/24/18 Sucralfate [Carafate] 1 gm PO QID #120 tablet 09/24/18 Ondansetron Odt [Zofran] 4 mg TL Q6H PRN #10 tablet 11/24/19 Tamsulosin [Flomax] 0.4 mg PO DAILY #14 capsule 11/24/19 Diphenoxylate/Atropine [Lomotil] 1 each PO QID PRN #12 tablet 09/23/21 Famotidine [Pepcid] 20 mg PO DAILY #20 tablet 09/23/21 Ondansetron Odt [Zofran] 4 mg TL Q6H PRN #10 tablet 09/23/21 - Allergies Allergies/Adverse Reactions: Allergies Allergy/AdvReac Type Severity Reaction Status Date / Time ibuprofen Allergy Nausea Verified 09/23/21 03:08 - Living Situation Living Situation: reports: With family Living Arrangement: reports: At home - Social History Does the pt smoke?: No Smoking Status: Current every day smoker Does the pt drink ETOH?: No Does the pt have substance abuse?: Yes - Immunizations Immunizations are current?: No Immunizations: TDAP >10years/unknown - POLST Patient has POLST: No PD ED PE NORMAL - Vitals Vital signs reviewed: Yes - General General: Alert and oriented X 3, No acute distress, Well developed/nourished - HEENT HEENT: Pharynx benign. No: Moist mucous membranes - Neck Neck: Supple, no meningeal sign, No adenopathy - Cardiac Cardiac: RRR, No murmur - Respiratory Respiratory: Clear bilaterally - Abdomen Abdomen: Normal bowel sounds, Soft, Non distended, No organomegaly, Other (some tender without guarding in epigastric area. Rest of abd completely not tender. ) - Male Male : Deferred - Rectal Rectal: Deferred - Back Back: No CVA TTP - Derm Derm: Normal color, Warm and dry - Extremities Extremities: No tenderness to palpate, Normal ROM s pain, No edema, No calf tenderness / cord - Neuro Neuro: Alert and oriented X 3, No motor deficit, Normal speech Results - Vitals Vitals: Vital Signs - 24 hr 09/23/21 09/23/21 02:59 05:01 Temperature 36.4 C L Heart Rate 79 68 Respiratory 15 15 Rate Blood Pressure 136/102 H 142/87 H O2 Saturation 97 98 Oxygen O2 Source Room air - EKG (time done) 02:53 Rate: Rate (enter#) (85) Rhythm: NSR QRS: Poor R wave progression Compare to prior EKG: Old EKG unavailable (cannot see prior ones in [facility], though dexription of ECG from 07/08/2020 ED visit sounds similar. ) - Labs Labs: Laboratory Tests 09/23/21 09/23/21 09/23/21 03:19 03:19 03:19 WBC 9.7 RBC 5.35 Hgb 17.2 Hct 47.5 MCV 88.8 MCH 32.1 H MCHC 36.2 H RDW 12.1 Plt Count 150 MPV 10.2 Neut # (Auto) 8.0 H Lymph # (Auto) 0.9 L [place] # (Auto) 0.7 Eos # (Auto) 0.0 Baso # (Auto) 0.0 Absolute Nucleated RBC 0.00 Nucleated RBC % 0.0 Sodium 134 L Potassium 3.2 L Chloride 100 L Carbon Dioxide 19 L Anion Gap 15.0 H BUN 22 H Creatinine 0.8 Estimated GFR (MDRD) 98 Glucose 143 H Calcium 9.2 Magnesium 1.9 Total Bilirubin 1.2 H AST 24 ALT 26 Alkaline Phosphatase 65 Troponin I High Sens 24.7 H* Total Protein 7.0 Albumin 3.9 Globulin 3.1 Albumin/Globulin Ratio 1.3 Lipase 372 H 09/23/21 05:22 WBC RBC Hgb Hct MCV MCH MCHC RDW Plt Count MPV Neut # (Auto) Lymph # (Auto) [place] # (Auto) Eos # (Auto) Baso # (Auto) Absolute Nucleated RBC Nucleated RBC % Sodium Potassium Chloride Carbon Dioxide Anion Gap BUN Creatinine Estimated GFR (MDRD) Glucose Calcium Magnesium Total Bilirubin AST ALT Alkaline Phosphatase Troponin I High Sens 30.2 H* Total Protein Albumin Globulin Albumin/Globulin Ratio Lipase - Rads (name of study) chest xray Radiology: Prelim report reviewed (no acute process. ), See rad report PD MEDICAL DECISION MAKING - ED course Complexity details: re-evaluated patient (Improve symptoms without any chest or stomach pain after antacid and antiemetic as well as famotidine. He is able to take oral fluids now without any discomfort. He states he feels much improved than he has in the last 3 days.), considered differential, d/w patient Departure - Departure Disposition: 01 Home, Self Care Clinical Impression: Nausea vomiting and diarrhea, Dehydration, Epigastric pain, Elevated lipase Condition: Stable Record reviewed to determine appropriate education?: Yes Instructions: ED Nausea Vomiting Prescriptions: Diphenoxylate/Atropine [Lomotil] 1 each PO QID PRN #12 tablet PRN Reason: Diarrhea Famotidine [Pepcid] 20 mg PO DAILY #20 tablet Ondansetron Odt [Zofran] 4 mg TL Q6H PRN #10 tablet PRN Reason: Nausea / Vomiting Comments: EKG, chest x-ray, troponin and blood tests are good without any signs of acute heart attack or heart failure. It does sound like you likely were dehydrated with the nausea of vomiting and diarrhea you have had. This can put a stress on your system such that you may have had some chest pain related. More likely it some irritation of the esophagus however from the vomiting. I would suggest famotidine acid reducing medicine twice daily for a few days and then once daily after that for the next week or 2. Ondansetron if needed for nausea. Add antacids such as Maalox or Mylanta or similar periodically if needed for esophageal or stomach pains. Lomotil if needed for diarrhea. I would anticipate your symptoms improving over the next couple of days and be resolved by 2 to 3 days. Recheck if not better in that timeframe. Interestingly your lipase level which is a marker of your pancreas has been chronically elevated by prior blood tests on record here. Medication brambila, both your cholesterol medicine atorvastatin and also your lisinopril blood pressure medicine can cause an elevation or mild inflammation of your pancreas occasionally. I would suggest holding your a atorvastatin cholesterol medicine for a month or so and have primary care recheck your lipase level and see if it is improved. If the [facility] and feeling does no longer accept your insurance, you could try the [facility] where your mother goes and see if they accept it instead. Transmitted your prescriptions to [facility] pharmacy in [place].
[2021-09-23] MEDS: DROPERIDOL 5 MG/2 ML VIAL IVP STA (03:10)
[2021-09-23] MEDS: FAMOTIDINE 20 MG/2 ML VIAL IVP STA (03:13)
[2021-09-23] MEDS: SODIUM CHLORIDE 0.9% 1,000 ML IV STA ×2 (03:15→04:33)
[2021-09-23 03:25] LABS: BASOPHILS % (AUTO) 0.4 %; EOSINOPHILS % (AUTO) 0.2 %; HCT - HEMATOCRIT 47.5 % (42.0-52.0); HGB - HEMOGLOBIN 17.2 g/dL (14.0-18.0); LYMPHOCYTES # (AUTO) 0.9 10^3/uL (1.5-3.5); LYMPHOCYTES % (AUTO) 9.7 %; MEAN CORPUSCULAR HEMOGLOBIN 32.1 pg (27.0-31.0); MEAN CORPUSCULAR HGB CONC 36.2 g/dL (32.0-36.0); MEAN CORPUSCULAR VOLUME 88.8 fL (80.0-94.0); MEAN PLATELET VOLUME 10.2 fL (7.4-11.4); MONOCYTES # (AUTO) 0.7 10^3/uL (0.0-1.0); MONOCYTES % (AUTO) 7.2 %; NEUTROPHILS % (AUTO) 82.3 %; PLT - PLATELET COUNT 150 10^3/uL (130-450); RED BLOOD COUNT 5.35 10^6/uL (4.70-6.10); RED CELL DISTRIBUTION WIDTH 12.1 % (12.0-15.0); WHITE BLOOD COUNT 9.7 x10^3/uL (4.8-10.8)
[2021-09-23 03:39] LABS: ALBUMIN 3.9 g/dL (3.2-5.5); ALBUMIN/GLOBULIN RATIO 1.3 (1.0-2.2); BILIRUBIN,TOTAL 1.2 mg/dL (0.2-1.0); CALCIUM 9.2 mg/dL (8.5-10.3); CREATININE 0.8 mg/dL (0.6-1.2); MAGNESIUM 1.9 mg/dL (1.7-2.8); POTASSIUM 3.2 mmol/L (3.5-5.0)
[2021-09-23] MEDS: MAG HYDROX/AL HYDROX/SIMETH 30 ML UDC PO STA (04:10)
[2021-09-23] MEDS: DIPHENOX/ATROPINE 2.5/0.025 MG TABLET PO STA (04:49)
[2021-09-23 06:27] VITALS: BP 123/87
[2021-09-23] MEDS: ONDANSETRON ODT 4 MG Prepack 2 TL PRN (06:33)
--- NOTE | 2021-09-23 09:12 | XRAY Report ---
PROCEDURE: Chest 1 View X-Ray INDICATIONS: Chest Pain MAIN TECHNIQUE: One view of the chest was acquired. COMPARISON: None FINDINGS: Surgical changes and devices: None. Lungs and pleura: No pleural effusions or pneumothorax. Lungs are clear. Mediastinum: Mediastinal contours appear normal. Heart size is normal. Bones and chest wall: No suspicious bony lesions. Overlying soft tissues appear unremarkable. IMPRESSION: No acute cardiopulmonary abnormality. Reviewed by: Arnav Fernando on 09/23/2021 9:10 AM [facility] Approved by: Arnav Fernando on 09/23/2021 9:10 AM [facility] Station ID: [id number]
== END 2021-09-23 06:35 | disposition home or self-care (01) ==
LOC: EDUNIT# → ED 02:49
DX: E86.0 Dehydration (principal); R11.2 Nausea with vomiting, unspecified; R19.7 Diarrhea, unspecified; R74.8 Abnormal levels of other serum enzymes; I10 Essential (primary) hypertension; F17.200 Nicotine dependence, unspecified, uncomplicated
CPT/HCPCS: 36415; 71045; 80053; 83690; 83735; 84484; 85025; 93005; 96361; 96374; 96375; 99283; 99284; A9270

== ENCOUNTER 2021-09-24 06:57 | Outpatient (CLI) | payer MEDICAID | END 2021-09-24 06:58 | disposition critical access hospital (66) | LOC: EMS 06:57 | DX: F41.9 Anxiety disorder, unspecified (principal); R11.0 Nausea; R61 Generalized hyperhidrosis; I10 Essential (primary) hypertension | CPT/HCPCS: A0425; A0429; A0999 ==

== ENCOUNTER 2021-09-24 07:25 | Emergency (ER) | payer MEDICAID ==
[2021-09-24 07:38] VITALS: BP 180/109
--- NOTE | 2021-09-24 08:05 | ED Physician Documentation ---
History of Present Illness - Stated complaint Stated Complaint: HIGH BP - Chief complaint Chief Complaint: Cardiac - History obtained from History obtained from: Patient - History of Present Illness Pain level max: 3 Pain level now: 2 - Additonal information Additional information: Patient is a 61-year-old male who states he has had increasing anxiety over the past 4 days. He states that nothing makes it better or worse. He feels hot and cold. Has body aches. Mild cough. Occasional nausea. No vomiting. No diarrhea. Was seen here yesterday for same. States that his testing was normal and was sent home after 2 L of fluid. He states the body aches have returned. No chest pain. No shortness of breath. He states he feels very anxious that his blood pressure is high. He states that his doctor is going to retire and he does not know who his new doctor will be. He has a 25-aamk-keco history of smoking, states quit smoking a few years ago. He does use marijuana multiple times daily. Denies any alcohol use. Review of Systems Constitutional: reports: Fever (subjective), Chills Nose: reports: Rhinorrhea / runny nose. denies: Congestion Throat: denies: Sore throat Cardiac: denies: Palpitations Respiratory: reports: Cough (mild, dry). denies: Dyspnea, Wheezing GI: reports: Nausea. denies: Abdominal Pain, Diarrhea, Hematemesis Skin: denies: Rash Musculoskeletal: denies: Neck pain, Back pain Neurologic: denies: Headache PD PAST MEDICAL HISTORY - Past Medical History Cardiovascular: Hypertension, Coronary artery disease, [place] Respiratory: None Endocrine/Autoimmune: None GI: GI bleed, Other (denies history of pancreatitis.) Psych: Anxiety - Past Surgical History Past Surgical History: Yes Cardiovascular: Coronary stent - Present Medications Home Medications: Ambulatory Orders Medication Instructions Recorded Confirmed lisinopriL [Lisinopril] 10 mg PO DAILY 01/10/17 09/21/18 Atorvastatin Calcium [Lipitor] 80 mg PO DAILY 09/21/18 09/21/18 Pantoprazole Sodium [Protonix] 20 mg PO BID #60 tablet. 09/24/18 Sucralfate [Carafate] 1 gm PO QID #120 tablet 09/24/18 Ondansetron Odt [Zofran] 4 mg TL Q6H PRN #10 tablet 11/24/19 Tamsulosin [Flomax] 0.4 mg PO DAILY #14 capsule 11/24/19 Diphenoxylate/Atropine [Lomotil] 1 each PO QID PRN #12 tablet 09/23/21 Famotidine [Pepcid] 20 mg PO DAILY #20 tablet 09/23/21 Ondansetron Odt [Zofran] 4 mg TL Q6H PRN #10 tablet 09/23/21 Ondansetron Odt [Zofran] 4 mg TL Q6H PRN #10 tablet 09/24/21 - Allergies Allergies/Adverse Reactions: Allergies Allergy/AdvReac Type Severity Reaction Status Date / Time ibuprofen Allergy Nausea Verified 09/23/21 03:08 - Social History Does the pt smoke?: No Smoking Status: Current every day smoker Does the pt drink ETOH?: No Does the pt have substance abuse?: Yes - Immunizations Immunizations are current?: No Immunizations: TDAP >10years/unknown - POLST Patient has POLST: No PD ED PE NORMAL - Vitals Vital signs reviewed: Yes - General General: Alert and oriented X 3, No acute distress - HEENT HEENT: Ears normal, Moist mucous membranes, Pharynx benign - Neck Neck: Supple, no meningeal sign - Cardiac Cardiac: RRR - Respiratory Respiratory: No respiratory distress, Clear bilaterally - Abdomen Abdomen: Soft, Non tender, Non distended - Derm Derm: Warm and dry - Extremities Extremities: No edema, No calf tenderness / cord - Neuro Neuro: Alert and oriented X 3 - Psych Psych: Normal mood, Normal affect Results - Vitals Vitals: Vital Signs - 24 hr 09/24/21 07:28 Temperature 36.5 C Heart Rate 74 Respiratory 17 Rate Blood Pressure 180/109 H O2 Saturation 98 Oxygen O2 Source Room air - EKG (time done) 0746 Rate: Rate (enter#) (68) Rhythm: NSR [place]: Normal Intervals: Normal HI QRS: Normal Ischemia: Normal ST segments, Q waves (v2-3) Compare to prior EKG: Unchanged from prior EKG - Labs Labs: Laboratory Tests 09/24/21 09/24/21 09/24/21 07:57 07:57 07:57 WBC 8.7 RBC 4.75 Hgb 15.4 Hct 43.4 MCV 91.4 MCH 32.4 H MCHC 35.5 RDW 12.4 Plt Count 136 MPV 10.2 Neut # (Auto) 6.0 Lymph # (Auto) 1.6 [place] # (Auto) 0.8 Eos # (Auto) 0.2 Baso # (Auto) 0.1 Absolute Nucleated RBC 0.00 Nucleated RBC % 0.0 Sodium 136 Potassium 3.5 Chloride 105 Carbon Dioxide 22 Anion Gap 9.0 BUN 21 H Creatinine 0.8 Estimated GFR (MDRD) 98 Glucose 109 H Calcium 9.0 Total Bilirubin 0.7 AST 25 ALT 25 Alkaline Phosphatase 57 Troponin I High Sens 18.9 Total Protein 6.1 L Albumin 3.7 Globulin 2.4 Albumin/Globulin Ratio 1.5 Lipase 323 H - Rads (name of study) cxr Radiology: Final report received, EMP read contemporaneously, See rad report (no acute disease) PD MEDICAL DECISION MAKING - ED course Complexity details: reviewed results, re-evaluated patient, considered differential, d/w patient ED course: Patient feels better after droperidol and Benadryl. No evidence of acute coronary syndrome. Blood pressure decreased. Patient is asymptomatic. His symptoms seem consistent with a viral syndrome, possible COVID. COVID testing performed. Patient complains of body aches and chills as well as subjective fevers. Patient is well-appearing, nontoxic. Afebrile. No hypoxia or respiratory distress. Patient counseled regarding signs and symptoms for which I believe and urgent re-evaluation would be necessary. Patient with good understanding of and agreement to plan and is comfortable going home at this time This document was made in part using voice recognition software. While efforts are made to proofread this document, sound alike and grammatical errors may occur. Departure - Departure Disposition: 01 Home, Self Care Clinical Impression: Elevated lipase, Viral syndrome Condition: Good Instructions: ED Viral Syndrome Follow-Up: Panfilo Berrios MD [Credentialed Staff Provider] - Within 1 week Prescriptions: Ondansetron Odt [Zofran] 4 mg TL Q6H PRN #10 tablet PRN Reason: Nausea / Vomiting Comments: Prescription was sent to [facility] in [place]. Please follow-up with your doctor for further care. You should have your lipase rechecked with your doctor in 1 week as well. Discharge Date/Time: 09/24/21 09:49
[2021-09-24 08:22] LABS: BASOPHILS # (AUTO) 0.1 10^3/uL (0.0-0.1); BASOPHILS % (AUTO) 0.7 %; EOSINOPHILS # (AUTO) 0.2 10^3/uL (0.0-0.7); HCT - HEMATOCRIT 43.4 % (42.0-52.0); HGB - HEMOGLOBIN 15.4 g/dL (14.0-18.0); LYMPHOCYTES # (AUTO) 1.6 10^3/uL (1.5-3.5); LYMPHOCYTES % (AUTO) 18.1 %; MEAN CORPUSCULAR HEMOGLOBIN 32.4 pg (27.0-31.0); MEAN CORPUSCULAR HGB CONC 35.5 g/dL (32.0-36.0); MEAN CORPUSCULAR VOLUME 91.4 fL (80.0-94.0); MEAN PLATELET VOLUME 10.2 fL (7.4-11.4); MONOCYTES # (AUTO) 0.8 10^3/uL (0.0-1.0); MONOCYTES % (AUTO) 9.6 %; NEUTROPHILS % (AUTO) 69.4 %; PLT - PLATELET COUNT 136 10^3/uL (130-450); RED BLOOD COUNT 4.75 10^6/uL (4.70-6.10); RED CELL DISTRIBUTION WIDTH 12.4 % (12.0-15.0); WHITE BLOOD COUNT 8.7 x10^3/uL (4.8-10.8)
[2021-09-24] MEDS ORDERED: DROPERIDOL 5 MG/2 ML VIAL IVP STA (08:24)
[2021-09-24] MEDS ORDERED: diphenhydrAMINE INJ 50 MG/ML VIAL IVP STA (08:24)
[2021-09-24] MEDS ORDERED: ACETAMINOPHEN 325 MG TABLET PO STA (08:25)
--- NOTE | 2021-09-24 08:28 | XRAY Report ---
PROCEDURE: Chest 1 View X-Ray INDICATIONS: Chest Pain TECHNIQUE: One view of the chest was acquired. COMPARISON: September 23, 2021 FINDINGS: SUPPORT DEVICES: None. LUNGS/PLEURA: No focal consolidation, pleural effusion or space-occupying pneumothorax. MEDIASTINUM: The cardiomediastinal silhouette is within normal limits. BONES/SOFT TISSUES: No acute abnormality. IMPRESSION: 1.No acute cardiopulmonary abnormality. Reviewed by: Dane Baldwin MD on 09/24/2021 8:27 AM [facility] Approved by: Dane Baldwin MD on 09/24/2021 8:27 AM [facility] Station ID: [id number]
[2021-09-24 08:39] LABS: ALBUMIN 3.7 g/dL (3.2-5.5); ALBUMIN/GLOBULIN RATIO 1.5 (1.0-2.2); BILIRUBIN,TOTAL 0.7 mg/dL (0.2-1.0); CREATININE 0.8 mg/dL (0.6-1.2); POTASSIUM 3.5 mmol/L (3.5-5.0); TOTAL PROTEIN 6.1 g/dL (6.7-8.2)
== END 2021-09-24 09:49 | disposition home or self-care (01) ==
LOC: EDUNIT# → ED 07:25
DX: B34.9 Viral infection, unspecified (principal); R74.8 Abnormal levels of other serum enzymes; Z87.891 Personal history of nicotine dependence; Z20.822 Contact with and (suspected) exposure to COVID-19
CPT/HCPCS: 36415; 71045; 80053; 83690; 84484; 85025; 87635; 93005; 96374; 99283; 99284; A9270; J1200

== ENCOUNTER 2021-09-28 12:44 | Outpatient (CLI) | payer MEDICAID | END 2021-09-28 12:45 | disposition critical access hospital (66) | LOC: EMS 12:44 | DX: R07.9 Chest pain, unspecified (principal); R42 Dizziness and giddiness; R23.2 Flushing; R68.83 Chills (without fever) | CPT/HCPCS: A0425; A0429; A0999 ==

== ENCOUNTER 2021-09-28 13:07 | Emergency (ER) | payer MEDICAID ==
[2021-09-28] MEDS ORDERED: LORazepam 2 MG/ML VIAL IVP STA (13:29)
--- NOTE | 2021-09-28 13:34 | ED Physician Documentation ---
History of Present Illness - Stated complaint Stated Complaint: CHEST DISCOMFORT - Chief complaint Chief Complaint: Cardiac - History obtained from History obtained from: Patient - History of Present Illness Timing: Today Pain level max: 1 Pain level now: 1 - Additonal information Additional information: 61-year-old male presents to the emergency department stating the he has felt like "my veins are on fire" several times over the day today. He states that this seems to occur randomly. He states that when he feels this way he checks his blood pressure and it is often high. He states he is taken about 50 mg of lisinopril today. He also took 648 mg of aspirin. Nothing makes it better or worse. He states he had mild chest pressure this morning. No abdominal pain or back pain. No cough, congestion, fevers. Review of Systems Constitutional: denies: Fever, Chills Respiratory: denies: Cough GI: denies: Nausea, Vomiting, Diarrhea Musculoskeletal: denies: Neck pain, Back pain Neurologic: denies: Headache PD PAST MEDICAL HISTORY - Past Medical History Cardiovascular: Hypertension, Coronary artery disease, [place] Respiratory: None Endocrine/Autoimmune: None GI: GI bleed, Other Psych: Anxiety - Past Surgical History Past Surgical History: Yes Cardiovascular: Coronary stent - Present Medications Home Medications: Ambulatory Orders Medication Instructions Recorded Confirmed lisinopriL [Lisinopril] 10 mg PO DAILY 01/10/17 09/21/18 Atorvastatin Calcium [Lipitor] 80 mg PO DAILY 09/21/18 09/21/18 Pantoprazole Sodium [Protonix] 20 mg PO BID #60 tablet. 09/24/18 Sucralfate [Carafate] 1 gm PO QID #120 tablet 09/24/18 Ondansetron Odt [Zofran] 4 mg TL Q6H PRN #10 tablet 11/24/19 Tamsulosin [Flomax] 0.4 mg PO DAILY #14 capsule 11/24/19 Diphenoxylate/Atropine [Lomotil] 1 each PO QID PRN #12 tablet 09/23/21 Famotidine [Pepcid] 20 mg PO DAILY #20 tablet 09/23/21 Ondansetron Odt [Zofran] 4 mg TL Q6H PRN #10 tablet 09/23/21 Ondansetron Odt [Zofran] 4 mg TL Q6H PRN #10 tablet 09/24/21 - Allergies Allergies/Adverse Reactions: Allergies Allergy/AdvReac Type Severity Reaction Status Date / Time ibuprofen Allergy Nausea Verified 09/28/21 13:20 - Social History Does the pt smoke?: No Smoking Status: Former smoker Does the pt drink ETOH?: No Does the pt have substance abuse?: Yes - Immunizations Immunizations are current?: No Immunizations: TDAP >10years/unknown - POLST Patient has POLST: No PD ED PE NORMAL - Vitals Vital signs reviewed: Yes - General General: Alert and oriented X 3, No acute distress, Other (anxious appearing.) - HEENT HEENT: PERRL - Neck Neck: Supple, no meningeal sign - Cardiac Cardiac: RRR, Strong equal pulses - Respiratory Respiratory: No respiratory distress, Clear bilaterally - Abdomen Abdomen: Soft, Non tender, Non distended - Derm Derm: Warm and dry - Neuro Neuro: Alert and oriented X 3, nurse staff industrial 2-12 intact, No motor deficit, No sensory deficit, Normal speech - Psych Psych: Normal mood, Other (anxious) Results - Vitals Vitals: Vital Signs - 24 hr 09/28/21 09/28/21 09/28/21 13:08 13:47 14:46 Temperature 37.1 C Heart Rate 83 79 73 Respiratory 16 16 19 Rate Blood Pressure 172/104 H 166/107 H 141/96 H O2 Saturation 99 98 96 Oxygen O2 Source Room air - EKG (time done) 1308 Rate: Rate (enter#) (74) Rhythm: NSR [place]: Normal Intervals: Normal [place] QRS: Normal Ischemia: Normal ST segments, Q waves (V1-3) - Labs Labs: Laboratory Tests 09/28/21 09/28/21 09/28/21 13:34 13:34 13:34 WBC 7.9 RBC 4.85 Hgb 15.6 Hct 44.2 MCV 91.1 MCH 32.2 H MCHC 35.3 RDW 12.4 Plt Count 145 MPV 10.2 Neut # (Auto) 6.3 Lymph # (Auto) 0.9 L [place] # (Auto) 0.6 Eos # (Auto) 0.0 Baso # (Auto) 0.1 Absolute Nucleated RBC 0.00 Nucleated RBC % 0.0 Sodium 136 Potassium 3.7 Chloride 103 Carbon Dioxide 24 Anion Gap 9.0 BUN 21 H Creatinine 0.8 Estimated GFR (MDRD) 98 Glucose 116 H Calcium 9.3 Total Bilirubin 0.4 AST 22 ALT 28 Alkaline Phosphatase 57 Troponin I High Sens 10.3 Total Protein 6.1 L Albumin 3.6 Globulin 2.5 Albumin/Globulin Ratio 1.4 Lipase 162 H Salicylates 09/28/21 13:34 WBC RBC Hgb Hct MCV MCH MCHC RDW Plt Count MPV Neut # (Auto) Lymph # (Auto) [place] # (Auto) Eos # (Auto) Baso # (Auto) Absolute Nucleated RBC Nucleated RBC % Sodium Potassium Chloride Carbon Dioxide Anion Gap BUN Creatinine Estimated GFR (MDRD) Glucose Calcium Total Bilirubin AST ALT Alkaline Phosphatase Troponin I High Sens Total Protein Albumin Globulin Albumin/Globulin Ratio Lipase Salicylates 16.1 - Rads (name of study) cxr Radiology: Final report received, EMP read contemporaneously, See rad report (no acute abnormality) PD MEDICAL DECISION MAKING - ED course Complexity details: reviewed results, re-evaluated patient, considered differential (No ST elevation [place], no aortic dissection, no PE, no tension pneumo thorax, no aortic aneurysm), d/w patient ED course: Patient feels much better after Ativan. Symptoms resolved. No acute findings on laboratory testing, EKG, chest x-ray. We will have the patient follow-up with his PCP for a cardiac stress test. Patient counseled regarding signs and symptoms for which I believe and urgent re-evaluation would be necessary. Patient with good understanding of and agreement to plan and is comfortable going home at this time This document was made in part using voice recognition software. While efforts are made to proofread this document, sound alike and grammatical errors may occur. Departure - Departure Disposition: 01 Home, Self Care Clinical Impression: Paresthesia, Anxiety Hypertension Qualifiers: Hypertension type: unspecified Qualified Code(s): I10 - Essential (primary) hypertension Condition: Good Instructions: ED HTN Established Follow-Up: Panfilo Berrios MD [Credentialed Staff Provider] - Within 3 Days Comments: Please contact Dr. Berrios's office today to ask him to schedule a cardiac stress test for you. Your testing is normal here today. Your laboratory testing does not show any acute abnormalities. Return if you worsen. Discharge Date/Time: 09/28/21 15:16
[2021-09-28 13:41] LABS: BASOPHILS # (AUTO) 0.1 10^3/uL (0.0-0.1); BASOPHILS % (AUTO) 0.8 %; EOSINOPHILS % (AUTO) 0.5 %; HCT - HEMATOCRIT 44.2 % (42.0-52.0); HGB - HEMOGLOBIN 15.6 g/dL (14.0-18.0); LYMPHOCYTES # (AUTO) 0.9 10^3/uL (1.5-3.5); LYMPHOCYTES % (AUTO) 11.4 %; MEAN CORPUSCULAR HEMOGLOBIN 32.2 pg (27.0-31.0); MEAN CORPUSCULAR HGB CONC 35.3 g/dL (32.0-36.0); MEAN CORPUSCULAR VOLUME 91.1 fL (80.0-94.0); MEAN PLATELET VOLUME 10.2 fL (7.4-11.4); MONOCYTES # (AUTO) 0.6 10^3/uL (0.0-1.0); NEUTROPHILS # (AUTO) 6.3 10^3/uL (1.5-6.6); PLT - PLATELET COUNT 145 10^3/uL (130-450); RED BLOOD COUNT 4.85 10^6/uL (4.70-6.10); RED CELL DISTRIBUTION WIDTH 12.4 % (12.0-15.0); WHITE BLOOD COUNT 7.9 x10^3/uL (4.8-10.8)
[2021-09-28 13:54] LABS: ALBUMIN 3.6 g/dL (3.2-5.5); ALBUMIN/GLOBULIN RATIO 1.4 (1.0-2.2); BILIRUBIN,TOTAL 0.4 mg/dL (0.2-1.0); CALCIUM 9.3 mg/dL (8.5-10.3); CREATININE 0.8 mg/dL (0.6-1.2); POTASSIUM 3.7 mmol/L (3.5-5.0); TOTAL PROTEIN 6.1 g/dL (6.7-8.2)
--- NOTE | 2021-09-28 14:18 | XRAY Report ---
PROCEDURE: Chest 1 View X-Ray INDICATIONS: Chest pain TECHNIQUE: One view of the chest was acquired. COMPARISON: 09/24/2021 FINDINGS: Surgical changes and devices: None. Lungs and pleura: No pleural effusions or pneumothorax. Lungs are clear. Mediastinum: Mediastinal contours appear normal. Heart size is normal. Bones and chest wall: No suspicious bony lesions. Overlying soft tissues appear unremarkable. IMPRESSION: Stable examination of the chest without acute cardiopulmonary abnormalities to explain patient's ches t pain. No focal airspace disease. Reviewed by: Sumit Welch MD on 09/28/2021 2:17 PM PST Approved by: Sumit Welch MD on 09/28/2021 2:17 PM PST Station ID: [id number]
[2021-09-28 14:47] VITALS: BP 141/96
== END 2021-09-28 15:16 | disposition home or self-care (01) ==
LOC: EDUNIT# → ED 13:07
DX: F41.9 Anxiety disorder, unspecified (principal); I10 Essential (primary) hypertension; R20.2 Paresthesia of skin; Z87.891 Personal history of nicotine dependence; Z95.5 Presence of coronary angioplasty implant and graft
CPT/HCPCS: 36415; 71045; 80053; 80329; 83690; 84484; 85025; 93005; 96374; 99283; 99284; J2060

== ENCOUNTER 2021-09-29 10:53 | Outpatient (CLI) | payer MEDICAID | END 2021-09-29 10:54 | disposition left against medical advice (07) | LOC: EMS 10:53 | DX: R07.89 Other chest pain (principal) ==

== ENCOUNTER 2021-09-29 12:35 | Outpatient (CLI) | payer MEDICAID | END 2021-09-29 12:36 | disposition critical access hospital (66) | LOC: EMS 12:35 | DX: R07.89 Other chest pain (principal); F41.9 Anxiety disorder, unspecified | CPT/HCPCS: A0425; A0429; A0999 ==

== ENCOUNTER 2021-09-29 12:58 | Emergency (ER) | payer MEDICAID ==
[2021-09-29] MEDS ORDERED: LORazepam 2 MG/ML VIAL IVP STA (13:13)
[2021-09-29] MEDS: diazePAM 5 MG TABLET PO STA ×2 (13:20→13:23)
--- NOTE | 2021-09-29 13:27 | ED Physician Documentation ---
History of Present Illness - Stated complaint Stated Complaint: ANXIETY - Chief complaint Chief Complaint: Cardiac - History obtained from History obtained from: Patient - Additonal information Additional information: The patient returns to the emergency department for the fourth time in approximately a week with chief complaint of anxiety and palpitations. He has been seen for nausea and and for palpitations a couple of times, as well as for high blood pressure. He has been worked up extensively, and work-up has been negative. Patient states that Susana feels better after being treated at the emergency department with Ativan, but then goes home and within 24 hours is having symptoms again. The patient admits that he stopped taking his Paxil for 2 months and just started again last week. However, he states the pills are old and he is not sure if they are still good or not. He has a friend picking up his new prescription for Paxil this afternoon. The patient does not take anything else for anxiety at home. He is on lisinopril for his hypertension. No other complaints at this time. Review of Systems Ten Systems: 10 systems reviewed and negative Constitutional: reports: Reviewed and negative Eyes: reports: Reviewed and negative Ears: reports: Reviewed and negative Nose: reports: Reviewed and negative Throat: reports: Reviewed and negative Cardiac: reports: Palpitations Respiratory: reports: Reviewed and negative GI: reports: Reviewed and negative : reports: Reviewed and negative Skin: reports: Reviewed and negative Musculoskeletal: reports: Reviewed and negative Neurologic: reports: Reviewed and negative Psychiatric: reports: Anxiety Endocrine: reports: Reviewed and negative Immunocompromised: reports: Reviewed and negative PD PAST MEDICAL HISTORY - Past Medical History Cardiovascular: Hypertension, Coronary artery disease, [place] Respiratory: None Endocrine/Autoimmune: None GI: GI bleed, Other Psych: Anxiety - Past Surgical History Past Surgical History: Yes Cardiovascular: Coronary stent - Present Medications Home Medications: Ambulatory Orders Medication Instructions Recorded Confirmed lisinopriL [Lisinopril] 10 mg PO DAILY 01/10/17 09/21/18 Atorvastatin Calcium [Lipitor] 80 mg PO DAILY 09/21/18 09/21/18 Pantoprazole Sodium [Protonix] 20 mg PO BID #60 tablet. 09/24/18 Sucralfate [Carafate] 1 gm PO QID #120 tablet 09/24/18 Ondansetron Odt [Zofran] 4 mg TL Q6H PRN #10 tablet 11/24/19 Tamsulosin [Flomax] 0.4 mg PO DAILY #14 capsule 11/24/19 Diphenoxylate/Atropine [Lomotil] 1 each PO QID PRN #12 tablet 09/23/21 Famotidine [Pepcid] 20 mg PO DAILY #20 tablet 09/23/21 Ondansetron Odt [Zofran] 4 mg TL Q6H PRN #10 tablet 09/23/21 Ondansetron Odt [Zofran] 4 mg TL Q6H PRN #10 tablet 09/24/21 - Allergies Allergies/Adverse Reactions: Allergies Allergy/AdvReac Type Severity Reaction Status Date / Time ibuprofen Allergy Nausea Verified 09/29/21 13:06 - Social History Does the pt smoke?: No Smoking Status: Former smoker Does the pt drink ETOH?: No Does the pt have substance abuse?: Yes - Immunizations Immunizations are current?: No Immunizations: TDAP >10years/unknown - POLST Patient has POLST: No PD ED PE NORMAL - Vitals Vital signs reviewed: Yes - General General: Alert and oriented X 3, Well developed/nourished, Other (Patient appears anxious but is in no apparent distress otherwise) - HEENT HEENT: Atraumatic, PERRL, EOMI, Moist mucous membranes - Neck Neck: Supple, no meningeal sign - Cardiac Cardiac: RRR, No murmur, Strong equal pulses - Respiratory Respiratory: No respiratory distress, Clear bilaterally - Abdomen Abdomen: Soft, Non tender, Non distended - Derm Derm: Normal color, Warm and dry, No rash - Extremities Extremities: No deformity, No edema, No calf tenderness / cord - Neuro Neuro: Alert and oriented X 3, biomass facilitator 2-12 intact, Normal speech - Psych Psych: Other (Anxious appearing patient otherwise no apparent distress.) Results - Vitals Vitals: Vital Signs - 24 hr 09/29/21 09/29/21 09/29/21 13:04 13:08 13:45 Temperature 36.7 C 36.4 C L Heart Rate 77 82 81 Respiratory 16 20 14 Rate Blood Pressure 202/114 H 202/113 H 187/110 H O2 Saturation 100 100 97 Oxygen O2 Source Room air - EKG (time done) 1316 Rate: Rate (enter#) (74) Rhythm: NSR [place]: Normal Intervals: Normal [place] QRS: Normal Ischemia: Normal ST segments PD MEDICAL DECISION MAKING - ED course Complexity details: reviewed results, re-evaluated patient, considered differential, d/w patient ED course: I reviewed the patient's records and found that he had been worked up extensively with EKG and labs. I discussed with him that there is no further work-up to be done in the emergency department. I have given him a dose of Ativan and Valium, which he initially refused, but then later took. We have discussed his need to stay on his anxiolytics at home. We have also discussed his need to follow-up as an outpatient with his primary doctor. Departure - Departure Disposition: Home, Self Care Clinical Impression: Anxiety Condition: Stable Instructions: ED Panic Attack Comments: Your blood pressure is not dangerously high at this time, but it is important that you follow-up with primary care to determine whether you need to be on different or more medication for this. For now, you should consider increasing your lisinopril to 20 mg instead of 10 mg per dose. You have been offered some oral anxiety medication here but have declined to take it. You should continue on your paroxetine and allow it to get back up in your system to help prevent these panic attacks. Your labs recently have looked good and your EKG today is unchanged from yesterday. It is important that you follow-up with your primary care physician soon as possible. If you are not sure who to see, please call your insurance company for recommendations to get set up as soon as possible. Discharge Date/Time: 09/29/21 14:13
[2021-09-29 13:45] VITALS: BP 187/110
[2021-09-29] MEDS ORDERED: diazePAM 5 MG TABLET PO STA (13:51)
== END 2021-09-29 14:13 | disposition home or self-care (01) ==
LOC: EDUNIT# → EDBD → ED 12:58
DX: F41.9 Anxiety disorder, unspecified (principal); I10 Essential (primary) hypertension; Z87.891 Personal history of nicotine dependence; R00.2 Palpitations
CPT/HCPCS: 93005; 96374; 99282; 99283; A9270; J2060

== ENCOUNTER 2021-09-29 18:05 | Outpatient (CLI) | payer MEDICAID | END 2021-09-29 18:06 | disposition critical access hospital (66) | LOC: EMS 18:05 | DX: R07.89 Other chest pain (principal); F41.9 Anxiety disorder, unspecified | CPT/HCPCS: A0425; A0429; A0999 ==

== ENCOUNTER 2021-09-29 18:28 | Emergency (ER) | payer MEDICAID ==
[2021-09-29] MEDS ORDERED: LORazepam 1 MG TABLET PO STA (18:53)
--- NOTE | 2021-09-29 18:56 | ED Physician Documentation ---
History of Present Illness - Stated complaint Stated Complaint: ANXIETY,CP - Chief complaint Chief Complaint: MHE - History obtained from History obtained from: Patient - History of Present Illness Timing: Chronic Pain level max: 0 Pain level now: 0 - Additonal information Additional information: Patient is a 61-year-old male with anxiety. He was seen here earlier today for same. Has been seen here 5 times in the past week for similar symptoms. Patient states that he quit taking his Paxil at home. He states he recently restarted this. He states he feels like his veins are on fire. Does not have any chest pain or shortness of breath currently. He states he just feels generally unwell. He states the Ativan last night helped. The Valium he was given earlier today he states did not help his anxiety. He is not suicidal or homicidal. Nothing makes it better or worse. Review of Systems Constitutional: denies: Fever, Chills Nose: denies: Rhinorrhea / runny nose, Congestion Throat: denies: Sore throat Cardiac: denies: Chest pain / pressure, Palpitations Respiratory: denies: Cough GI: denies: Vomiting, Diarrhea Skin: denies: Rash Musculoskeletal: denies: Neck pain, Back pain Neurologic: denies: Headache PD PAST MEDICAL HISTORY - Past Medical History Past Medical History: Yes Cardiovascular: Hypertension, Coronary artery disease, [place] Respiratory: None Endocrine/Autoimmune: None GI: GI bleed, Other Psych: Anxiety - Past Surgical History Past Surgical History: Yes Cardiovascular: Coronary stent - Present Medications Home Medications: Ambulatory Orders Medication Instructions Recorded Confirmed lisinopriL [Lisinopril] 10 mg PO DAILY 01/10/17 09/21/18 Atorvastatin Calcium [Lipitor] 80 mg PO DAILY 09/21/18 09/21/18 Pantoprazole Sodium [Protonix] 20 mg PO BID #60 tablet. 09/24/18 Sucralfate [Carafate] 1 gm PO QID #120 tablet 09/24/18 Ondansetron Odt [Zofran] 4 mg TL Q6H PRN #10 tablet 11/24/19 Tamsulosin [Flomax] 0.4 mg PO DAILY #14 capsule 11/24/19 Diphenoxylate/Atropine [Lomotil] 1 each PO QID PRN #12 tablet 09/23/21 Famotidine [Pepcid] 20 mg PO DAILY #20 tablet 09/23/21 Ondansetron Odt [Zofran] 4 mg TL Q6H PRN #10 tablet 09/23/21 Ondansetron Odt [Zofran] 4 mg TL Q6H PRN #10 tablet 09/24/21 LORazepam [Ativan] 1 mg PO BID PRN #7 tablet 09/29/21 - Allergies Allergies/Adverse Reactions: Allergies Allergy/AdvReac Type Severity Reaction Status Date / Time ibuprofen Allergy Nausea Verified 09/29/21 18:37 - Social History Does the pt smoke?: No Smoking Status: Former smoker Does the pt drink ETOH?: No Does the pt have substance abuse?: Yes - Immunizations Immunizations are current?: No Immunizations: TDAP >10years/unknown - POLST Patient has POLST: No PD ED PE NORMAL - Vitals Vital signs reviewed: Yes - General General: Alert and oriented X 3, No acute distress, Well developed/nourished - HEENT HEENT: PERRL, Moist mucous membranes - Neck Neck: Supple, no meningeal sign - Cardiac Cardiac: RRR, Strong equal pulses - Respiratory Respiratory: No respiratory distress, Clear bilaterally - Abdomen Abdomen: Soft, Non tender, Non distended - Derm Derm: Warm and dry - Extremities Extremities: No edema - Neuro Neuro: Alert and oriented X 3 - Psych Psych: Other (Very anxious appearing.) Results - Vitals Vitals: Vital Signs - 24 hr 09/29/21 09/29/21 18:33 19:41 Temperature 36.8 C 36.9 C Heart Rate 86 94 Respiratory 16 15 Rate Blood Pressure 201/118 H 192/115 H O2 Saturation 99 98 Oxygen O2 Source Room air - EKG (time done) 1830 Rate: Rate (enter#) (88) Rhythm: NSR [place]: Normal Intervals: Normal [place] QRS: Normal Ischemia: Normal ST segments, Q waves (v1-3) Compare to prior EKG: Unchanged from prior EKG PD MEDICAL DECISION MAKING - ED course Complexity details: reviewed results, re-evaluated patient, considered differential, d/w patient ED course: Patient has been worked up several times recently for cardiac issues. No acute findings on laboratory testing, EKG, chest x-ray from prior visits. EKG without acute changes. Given Ativan. We will prescribe a small amount of Ativan for home. Patient instructed to call his doctor in the morning to discuss changing his anxiety medications. Also recommend he follow-up with a counselor and/or therapist for further help with his anxiety. The patient did become agitated in the emergency department and was especially agitated towards the nursing staff. Eventually he did calm down and left to the emergency department. This document was made in part using voice recognition software. While efforts are made to proofread this document, sound alike and grammatical errors may occur. Departure - Departure Disposition: 01 Home, Self Care Clinical Impression: Anxiety Condition: Good Instructions: ED Panic Attack Follow-Up: Panfilo Berrios MD [Credentialed Staff Provider] - Tomorrow Prescriptions: LORazepam [Ativan] 1 mg PO BID PRN #7 tablet PRN Reason: Anxiety Comments: As we have discussed multiple times, you need to follow-up with your doctor tomorrow regarding your anxiety and have them adjust your home medications. Your prescriptions were sent to [facility] in [place]. Do not drive or operate heavy machinery while taking the Ativan. Discharge Date/Time: 09/29/21 20:08
[2021-09-29 19:42] VITALS: BP 192/115
== END 2021-09-29 20:08 | disposition home or self-care (01) ==
LOC: EDUNIT# → ED 18:28
DX: F41.9 Anxiety disorder, unspecified (principal); I10 Essential (primary) hypertension; R00.2 Palpitations; Z87.891 Personal history of nicotine dependence
CPT/HCPCS: 93005; J8499

== ENCOUNTER 2021-11-17 15:01 | Outpatient (CLI) | payer MEDICAID | END 2021-11-17 15:02 | disposition short-term general hospital (02) | LOC: EMS 15:01 | DX: R07.89 Other chest pain (principal); R10.13 Epigastric pain; Z95.5 Presence of coronary angioplasty implant and graft | CPT/HCPCS: A0425; A0427; A0999 ==

== ENCOUNTER 2021-11-18 12:36 | Outpatient (CLI) | payer MEDICAID | END 2021-11-18 12:37 | disposition short-term general hospital (02) | LOC: EMS 12:36 | DX: R07.89 Other chest pain (principal); I10 Essential (primary) hypertension | CPT/HCPCS: A0425; A0427; A0999 ==

== ENCOUNTER 2021-12-04 22:51 | Outpatient (CLI) | payer MEDICAID | END 2021-12-04 22:52 | disposition short-term general hospital (02) | LOC: EMS 22:51 | DX: R07.89 Other chest pain (principal); I10 Essential (primary) hypertension; R11.0 Nausea; R61 Generalized hyperhidrosis | CPT/HCPCS: A0425; A0427; A0999 ==

== ENCOUNTER 2023-01-27 10:52 | Outpatient (CLI) | payer MEDICAID ==
[2023-01-27 15:58] LABS: CALCIUM 9.2 mg/dL (8.5-10.3); CREATININE 0.9 mg/dL (0.6-1.2)
[2023-01-27 16:06] LABS: CHOLESTEROL 107 mg/dL; HDL CHOLESTEROL 36 mg/dL; LDL CHOLESTEROL,CALCULATED 59 mg/dL; LDL/HDL RATIO 1.6 (<3.6); TRIGLYCERIDES 59 mg/dL; VLDL CHOLESTEROL 12 mg/dL
== END 2023-01-27 10:53 | disposition home or self-care (01) ==
LOC: LAB.S 10:52
PROVIDERS: ATTEND Internal Medicine Interventional Cardiology
DX: I65.22 Occlusion and stenosis of left carotid artery (principal); I25.10 Atherosclerotic heart disease of native coronary artery without angina pectoris; E78.5 Hyperlipidemia, unspecified
CPT/HCPCS: 36415; 80048; 80053; 80061; 83721

== ENCOUNTER 2023-04-05 14:07 | Outpatient (CLI) | payer MEDICAID | END 2023-04-05 23:59 | disposition short-term general hospital (02) | LOC: EMS 14:07 | DX: R07.89 Other chest pain (principal); M54.50 Low back pain, unspecified; R11.0 Nausea | CPT/HCPCS: A0425; A0427; A0999 ==

== ENCOUNTER 2023-08-17 13:45 | Outpatient (CLI) | payer MEDICAID ==
--- NOTE | 2023-08-18 09:15 | CT Report ---
PROCEDURE: Low Dose Lung Cancer Screen INDICATIONS: HIST OF SMOKING TECHNIQUE: A CT scan of the chest was performed. Intravenous contrast media was not administered. Images were re corded and evaluated at appropriate window settings. Reformats: axial MIP of the chest, coronal and s agittal. For radiation dose reduction, the following was used: automated exposure control, adjustment of mA and/or kV according to patient size. COMPARISON: CT chest, 10/23/2020 and 09/21/2016. FINDINGS: Image quality: Excellent. Lungs and pleura: Stable 4 mm nodule in the lateral aspect of the left upper lobe (series 3 image 143 ). Moderate to severe emphysema. Subpleural scar and atelectasis in right upper lobe. No focal infiltrat e or pleural effusions. No pneumothorax. Mediastinum: Heart size is normal. Severe coronary calcification. No pericardial effusion. No large v essel abnormality. No mediastinal adenopathy by size criteria. Small hiatal hernia. Chest wall and lower neck: Thyroid is unremarkable. No axillary or supraclavicular adenopathy by size . Bones: No aggressive osseous abnormality. Upper Abdomen: There is a 2 mm nonobstructive right renal stone no hydronephrosis. A 1.8 cm splenule is noted in the left upper abdomen. IMPRESSION: 1. Stable 4 mm left upper lobe nodule. Lung RADS: 2 - Benign. Recommendation: Continue annual screening in 12 Months with LDCT 2. Moderate to severe emphysema. 3. Severe coronary artery calcification. 4. Please see body of report for other incidental findings. Reviewed by: Bharath Costello MD on 08/18/2023 9:14 AM [facility] Approved by: Bharath Costello MD on 08/18/2023 9:14 AM PST Station ID: [id number]
== END 2023-08-17 13:46 | disposition home or self-care (01) ==
LOC: DI 13:45
PROVIDERS: ATTEND Internal Medicine
DX: Z12.2 Encounter for screening for malignant neoplasm of respiratory organs (principal); J43.9 Emphysema, unspecified; Z87.891 Personal history of nicotine dependence; R91.1 Solitary pulmonary nodule; I25.10 Atherosclerotic heart disease of native coronary artery without angina pectoris

== ENCOUNTER 2024-02-07 06:56 | Outpatient (CLI) | payer MEDICAID | END 2024-02-07 23:44 | disposition critical access hospital (66) | LOC: EMS 06:56 | DX: K92.0 Hematemesis (principal) | CPT/HCPCS: A0425; A0427; A0999 ==

== ENCOUNTER 2024-02-07 07:20 | Emergency (ER) | payer MEDICAID ==
[2024-02-07] MEDS: SODIUM CHLORIDE 0.9% 1,000 ML IV STA (07:51)
[2024-02-07] MEDS: ONDANSETRON 4 MG/2 ML VIAL IVP STA (07:52)
[2024-02-07 07:55] LABS: BASOPHILS # (AUTO) 0.1 10^3/uL (0.0-0.1); BASOPHILS % (AUTO) 0.4 %; EOSINOPHILS % (AUTO) 0.3 %; HCT - HEMATOCRIT 41.9 % (42.0-52.0); HGB - HEMOGLOBIN 14.9 g/dL (14.0-18.0); LYMPHOCYTES # (AUTO) 1.2 10^3/uL (1.5-3.5); LYMPHOCYTES % (AUTO) 10.8 %; MEAN CORPUSCULAR HEMOGLOBIN 32.5 pg (27.0-31.0); MEAN CORPUSCULAR HGB CONC 35.6 g/dL (32.0-36.0); MEAN CORPUSCULAR VOLUME 91.5 fL (80.0-94.0); MEAN PLATELET VOLUME 9.9 fL (7.4-11.4); MONOCYTES # (AUTO) 0.8 10^3/uL (0.0-1.0); MONOCYTES % (AUTO) 7.1 %; NEUTROPHILS # (AUTO) 9.2 10^3/uL (1.5-6.6); NEUTROPHILS % (AUTO) 81.2 %; PLT - PLATELET COUNT 128 10^3/uL (130-450); RED BLOOD COUNT 4.58 10^6/uL (4.70-6.10); RED CELL DISTRIBUTION WIDTH 11.9 % (12.0-15.0); WHITE BLOOD COUNT 11.3 x10^3/uL (4.8-10.8)
[2024-02-07] MEDS: PANTOPRAZOLE 40 MG VIAL IVP STA (07:59)
[2024-02-07 08:00] LABS: INR 1.2 (0.8-1.2); PT - PROTHROMBIN TIME 13.1 secs (9.9-12.6)
[2024-02-07 08:09] LABS: ALBUMIN 3.9 g/dL (3.2-5.5); ALBUMIN/GLOBULIN RATIO 1.7 (1.0-2.2); BILIRUBIN,TOTAL 0.6 mg/dL (0.2-1.0); CALCIUM 10.5 mg/dL (8.5-10.3); CREATININE 0.8 mg/dL (0.6-1.3); PHOSPHORUS 4.2 mg/dL (2.5-5.0); TOTAL PROTEIN 6.2 g/dL (6.4-8.9)
--- NOTE | 2024-02-07 08:22 | XRAY Report ---
PROCEDURE: Chest 1V INDICATIONS: upper gi bleed TECHNIQUE: One view of the chest was acquired. COMPARISON: 09/28/2021. FINDINGS: Surgical changes and devices: None. Lungs and pleura: No pleural effusions or pneumothorax. Lungs are clear. Mediastinum: Mediastinal contours appear normal. Heart size is normal. Bones and chest wall: No suspicious bony lesions. Overlying soft tissues appear unremarkable. IMPRESSION: No acute cardiopulmonary process. Reviewed by: Bony Jarrett MD on 02/07/2024 8:21 AM PDT Approved by: Bony Jarrett MD on 02/07/2024 8:21 AM PDT Station ID: [id number]
--- NOTE | 2024-02-07 08:44 | ED Physician Documentation ---
PD HPI NVD - Stated complaint Stated Complaint: GIB - Chief complaint Chief Complaint: Abd Pain - History obtained from History obtained from: Patient, EMS - Additonal information Additional information: 63yoM presents by EMS from home for episode of coffee ground emesis. Patient reports hx of upper GI bleed requiring transfusion and endoscopy in 2019, believed to be secondary to NSAID use, however has had no issues since then with bleeding. Patient takes daily plavix, denies use of ASA, NSAIDs, blood thinners, or etoh use. In usual state of health prior to this morning. Review of Systems Constitutional: denies: Fever, Chills GI: reports: Nausea, Vomiting. denies: Abdominal Pain, Constipation, Diarrhea, Hematemesis, Bloody / black stool Skin: denies: Rash, Lesions, Abrasion (s) Neurologic: denies: Generalized weakness, Focal weakness, Numbness PD PAST MEDICAL HISTORY - Past Medical History Cardiovascular: Hypertension, Coronary artery disease, [place] Respiratory: None Endocrine/Autoimmune: None GI: GI bleed, Other Psych: Anxiety - Past Surgical History Past Surgical History: Yes Cardiovascular: Coronary stent - Present Medications Home Medications: Ambulatory Orders Medication Instructions Recorded Confirmed lisinopriL [Lisinopril] 10 mg PO TID 01/10/17 02/10/24 Atorvastatin Calcium [Lipitor] 80 mg PO DAILY 09/21/18 02/10/24 Clopidogrel [Plavix] 75 mg PO DAILY 02/07/24 02/10/24 Omeprazole 40 mg PO BID #30 cap 02/07/24 02/10/24 amLODIPine [Norvasc] 5 mg PO BID 02/07/24 02/10/24 carvediloL [Coreg] 25 mg PO BID 02/07/24 02/10/24 Nitroglycerin [Nitrostat] 0.4 mg SL [id number] PRN 02/10/24 02/10/24 - Allergies Allergies/Adverse Reactions: Allergies Allergy/AdvReac Type Severity Reaction Status Date / Time ibuprofen Allergy Nausea Verified 02/10/24 11:12 - Social History Does the pt smoke?: No Smoking Status: Never smoker Does the pt drink ETOH?: No Does the pt have substance abuse?: Yes - Immunizations Immunizations are current?: No Immunizations: TDAP >10years/unknown - POLST Patient has POLST: No PD ED PE NORMAL - Vitals Vital signs reviewed: Yes - General General: Alert and oriented X 3, No acute distress, Well developed/nourished - Cardiac Cardiac: RRR, Strong equal pulses - Respiratory Respiratory: No respiratory distress, Clear bilaterally - Abdomen Abdomen: Soft, Non tender, Non distended - Derm Derm: Normal color, Warm and dry, No rash - Extremities Extremities: No deformity, No tenderness to palpate, Normal ROM s pain, No edema - Neuro Neuro: Alert and oriented X 3, weaver needle loom 2-12 intact, No motor deficit, Normal speech - Psych Psych: Normal mood, Normal affect Results - Vitals Vitals: Oxygen O2 Source Room air - Labs Labs: Laboratory Tests 02/07/24 02/07/24 02/07/24 07:42 07:42 07:42 WBC 11.3 H RBC 4.58 L Hgb 14.9 Hct 41.9 L MCV 91.5 MCH 32.5 H MCHC 35.6 RDW 11.9 L Plt Count 128 L MPV 9.9 Neut # (Auto) 9.2 H Lymph # (Auto) 1.2 L Snyder # (Auto) 0.8 Eos # (Auto) 0.0 Baso # (Auto) 0.1 Absolute Nucleated RBC 0.00 Nucleated RBC % 0.0 PT 13.1 H INR 1.2 Sodium 139 Potassium 4.0 Chloride 105 Carbon Dioxide 30 Anion Gap 4.0 L BUN 36 H Creatinine 0.8 Estimated GFR (MDRD) 97 Glucose 119 H Calcium 10.5 H Phosphorus 4.2 Total Bilirubin 0.6 AST 16 ALT 25 Alkaline Phosphatase 66 Total Protein 6.2 L Albumin 3.9 Globulin 2.3 Albumin/Globulin Ratio 1.7 Lipase 33 Blood Type Antibody Screen 02/07/24 02/07/24 07:42 09:38 WBC RBC Hgb 13.7 L Hct 39.9 L MCV MCH MCHC RDW Plt Count MPV Neut # (Auto) Lymph # (Auto) Snyder # (Auto) Eos # (Auto) Baso # (Auto) Absolute Nucleated RBC Nucleated RBC % PT INR Sodium Potassium Chloride Carbon Dioxide Anion Gap BUN Creatinine Estimated GFR (MDRD) Glucose Calcium Phosphorus Total Bilirubin AST ALT Alkaline Phosphatase Total Protein Albumin Globulin Albumin/Globulin Ratio Lipase Blood Type O POSITIVE Antibody Screen NEGATIVE PD Medical Decision Making - ED course Complexity details: reviewed old records, reviewed results, re-evaluated patient, considered differential, d/w patient, d/w staffing consultant ED course: Single episode of brownish, possibly coffee-ground emesis. Hx of Upper GI bleed 5 years ago. No longer on NSAIDs, denies other risk factors for GI bleed. Abdomen soft, no reproducible tenderness to palpation. Laboratory work, CXR, protonix, antinausea medications ordered. Laboratory work reviewed, Hgb 14.9, repeat 13.7 after 1L IV fluids. Other laboratory work unremarkable. Patient monitored for several hours in the ED with no further episodes of emesis. Tolerating po without difficulty. Case discussed with Dr. Montejo of general surgery, who agreed patient did not need to be emergently scoped, but should start BID PPIs and follow up in clinic. He stated that he will soon be out of town, but any general surgeon would be OK to follow up with. General surgery recommendations discussed with patient at bedside. Patient in agreement with plan. ED return precautions discussed. Departure - Departure Disposition: 01 Home, Self Care Clinical Impression: Coffee ground emesis Condition: Stable Instructions: ED Bleed UGI Stable Follow-Up: Brandon Montejo MD [Provider Admit Priv/Credential] - Renetta Hooker MD [Provider Admit Priv/Credential] - Prescriptions: Omeprazole 40 mg PO BID #30 cap Comments: Your laboratory work today did not show any anemia. I discussed your case with general surgery and we believe you are stable for outpatient follow-up. I do want you to take a twice daily antacid. Make sure that you follow-up with general surgery to see if you need another endoscopy. If you have return or worsening of coffee-ground emesis and I would recommend that you return to the emergency department for repeat evaluation. RX sent to [facility] in [place] Forms: PCP List Discharge Date/Time: 02/07/24 11:28
[2024-02-07 09:46] LABS: HCT - HEMATOCRIT 39.9 % (42.0-52.0); HGB - HEMOGLOBIN 13.7 g/dL (14.0-18.0)
[2024-02-07 11:31] VITALS: BP 115/77; O2SAT 99
== END 2024-02-07 11:28 | disposition home or self-care (01) ==
LOC: EDUNIT# → ED 07:20
DX: K92.0 Hematemesis (principal)
CPT/HCPCS: 36415; 80053; 83690; 84100; 85014; 85018; 85025; 85610; 86850; 86900; 86901; 96361; 96374; 96375; 99283

== ENCOUNTER 2024-02-10 10:30 | Outpatient (CLI) | payer MEDICAID | END 2024-02-10 23:59 | disposition critical access hospital (66) | LOC: EMS 10:30 | DX: R10.12 Left upper quadrant pain (principal); R10.812 Left upper quadrant abdominal tenderness; R11.0 Nausea; R68.83 Chills (without fever); R19.8 Other specified symptoms and signs involving the digestive system and abdomen | CPT/HCPCS: A0425; A0427; A0999 ==

== ENCOUNTER 2024-02-10 10:53 | Observation (INO) | payer MEDICAID ==
[2024-02-10 11:41] LABS: ALBUMIN 3.1 g/dL (3.2-5.5); ALBUMIN/GLOBULIN RATIO 1.9 (1.0-2.2); BILIRUBIN,TOTAL 0.3 mg/dL (0.2-1.0); CREATININE 1.1 mg/dL (0.6-1.3); POTASSIUM 4.4 mmol/L (3.5-4.5); TOTAL PROTEIN 4.7 g/dL (6.4-8.9)
[2024-02-10 11:45] LABS: BASOPHILS # (AUTO) 0.1 10^3/uL (0.0-0.1); BASOPHILS % (AUTO) 0.4 %; EOSINOPHILS % (AUTO) 0.2 %; LYMPHOCYTES # (AUTO) 2.4 10^3/uL (1.5-3.5); LYMPHOCYTES % (AUTO) 17.7 %; MEAN CORPUSCULAR HEMOGLOBIN 32.5 pg (27.0-31.0); MEAN CORPUSCULAR HGB CONC 33.8 g/dL (32.0-36.0); MEAN CORPUSCULAR VOLUME 96.1 fL (80.0-94.0); MEAN PLATELET VOLUME 10.4 fL (7.4-11.4); MONOCYTES # (AUTO) 1.3 10^3/uL (0.0-1.0); MONOCYTES % (AUTO) 9.4 %; NEUTROPHILS # (AUTO) 9.6 10^3/uL (1.5-6.6); NEUTROPHILS % (AUTO) 71.9 %; PLT - PLATELET COUNT 124 10^3/uL (130-450); RED BLOOD COUNT 2.03 10^6/uL (4.70-6.10); RED CELL DISTRIBUTION WIDTH 12.7 % (12.0-15.0); WHITE BLOOD COUNT 13.4 x10^3/uL (4.8-10.8)
[2024-02-10 11:47] LABS: HCT - HEMATOCRIT 19.5 % (42.0-52.0); HGB - HEMOGLOBIN 6.6 g/dL (14.0-18.0)
--- NOTE | 2024-02-10 12:02 | ED Physician Documentation ---
PD HPI GI BLEED - Stated complaint Stated Complaint: ABD PX - Chief complaint Chief Complaint: Abd Pain - History obtained from History obtained from: Patient - History of Present Illness Timing - onset: How many days ago (5) Timing - duration: Days (5) Timing - details: Gradual onset, Still present, Waxing and waning Associated symptoms: Vomiting, Coffee ground emesis, Black/tarry stool Contributing factors: Other (took some zofran last night which uspet his stomach. He has a sensativity to citric acid that have caused abdominal discomfort.). No: Sick contact, Recent antibiotics, Alcohol use, NSAID use, Diabetes Improved by: Laying still Similar symptoms before: Diagnosis (UGI bleeding) Recently seen: Emergency Dept - Additional information Additional information: Missael Palacios is a 63-year-old male with a prior history of coronary artery disease with a stent in place and a prior history of upper GI bleeding with anemia requiring transfusion and injection of epinephrine into the bleeding site in the stomach. Patient had this done in 2018 here at this hospital. He was seen in the emergency department 3 days ago with a complaint of dark tarry stool and abdominal pain. At that time his blood counts were normal. He has had persistence of dark tarry stool and he had some nausea yesterday and he took some Zofran. He does have a history of intolerance to citric acid. Apparently there is citric acid in the TL Zofran. This has caused irritation of the patient's stomach with pain and persistence of bleeding. Today he is feeling weak and shaky. 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 He denies specifically any use of alcohol or anti- inflammatories. He believes the trigger for the event was the citric acid. Review of Systems Constitutional: denies: Fever Eyes: denies: Decreased vision Ears: denies: Ear pain Nose: denies: Rhinorrhea / runny nose, Congestion Throat: denies: Sore throat Cardiac: denies: Chest pain / pressure, Palpitations Respiratory: denies: Dyspnea, Cough GI: reports: Abdominal Pain, Nausea, Bloody / black stool. denies: Vomiting : denies: Dysuria, Frequency PD PAST MEDICAL HISTORY - Past Medical History Cardiovascular: Hypertension, Coronary artery disease, [place] Respiratory: None Endocrine/Autoimmune: None GI: GI bleed, Other Psych: Anxiety - Past Surgical History Past Surgical History: Yes Cardiovascular: Coronary stent - Present Medications Home Medications: Ambulatory Orders Medication Instructions Recorded Confirmed lisinopriL [Lisinopril] 10 mg PO DAILY 01/10/17 02/07/24 Atorvastatin Calcium [Lipitor] 80 mg PO DAILY 09/21/18 02/07/24 Pantoprazole Sodium [Protonix] 20 mg PO BID #60 tablet. 09/24/18 02/07/24 Clopidogrel [Plavix] 75 mg PO ONCE 02/07/24 02/07/24 Omeprazole 40 mg PO BID #30 cap 02/07/24 Ondansetron Odt [Zofran] 4 mg TL Q6H PRN #30 tablet 02/07/24 amLODIPine [Norvasc] 10 mg PO DAILY 02/07/24 02/07/24 carvediloL [Coreg] 25 mg PO DAILY 02/07/24 02/07/24 - Allergies Allergies/Adverse Reactions: Allergies Allergy/AdvReac Type Severity Reaction Status Date / Time ibuprofen Allergy Nausea Verified 02/10/24 11:12 - Social History Does the pt smoke?: No Smoking Status: Never smoker Does the pt drink ETOH?: No Does the pt have substance abuse?: Yes - Immunizations Immunizations are current?: No Immunizations: TDAP >10years/unknown - POLST Patient has POLST: No PD ED PE NORMAL - Vitals Vital signs reviewed: Yes (normal ) - General General: Alert and oriented X 3, Well developed/nourished, Other (Pale appearing male with shaking. ) - HEENT HEENT: Atraumatic, PERRL, EOMI - Neck Neck: Supple, no meningeal sign, No bony TTP - Cardiac Cardiac: RRR, No murmur - Respiratory Respiratory: No respiratory distress, Clear bilaterally - Abdomen Abdomen: Normal bowel sounds, Soft, Non distended, No organomegaly, Other (mld epigastric tenderness) - Back Back: No CVA TTP, No spinal TTP - Derm Derm: Warm and dry, No rash, Other (the skin and conjuctiva are pale consistent with critically low blood counts. 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 2-12 intact, No motor deficit, No sensory deficit, Normal speech Eye Opening: Spontaneous Motor: Obeys Commands Verbal: Oriented GCS Score: 15 - Psych Psych: Normal mood, Normal affect Results - Vitals Vitals: Vital Signs - 24 hr 02/10/24 11:07 Temperature 36.6 C Heart Rate 85 Respiratory 18 Rate Blood Pressure 122/82 H O2 Saturation 100 Oxygen O2 Source Room air - Labs Labs: Laboratory Tests 02/10/24 02/10/24 02/10/24 11:17 11:17 11:38 WBC 13.4 H RBC 2.03 L Hgb 6.6 L* Hct 19.5 L* MCV 96.1 H MCH 32.5 H MCHC 33.8 RDW 12.7 Plt Count 124 L MPV 10.4 Neut # (Auto) 9.6 H Lymph # (Auto) 2.4 [place] # (Auto) 1.3 H Eos # (Auto) 0.0 Baso # (Auto) 0.1 Absolute Nucleated RBC 0.00 Nucleated RBC % 0.0 Sodium 137 Potassium 4.4 Chloride 108 Carbon Dioxide 24 Anion Gap 5.0 L BUN 54 H Creatinine 1.1 Estimated GFR (MDRD) 67 L Glucose 122 H Calcium 9.0 Total Bilirubin 0.3 AST 15 ALT 18 Alkaline Phosphatase 40 L Total Protein 4.7 L Albumin 3.1 L Globulin 1.6 L Albumin/Globulin Ratio 1.9 Lipase 67 Blood Type O POSITIVE Antibody Screen NEGATIVE Crossmatch IS Only See Detail PD Medical Decision Making - ED course Complexity details: reviewed old records, reviewed results, re-evaluated patient, considered differential, d/w patient, d/w family, d/w fitness sales consultant (Barbara, surgery: will consult on patient and scope if bleeding continues. ) Reviewed Lab Results: We reviewed a complete blood count showing a elevated white blood cell count of 13.4 critically low hemoglobin of 6.6 and critically low hematocrit of 19.5 platelets were low at 124,000. The patient's most recent hemogram showed a hemoglobin of 13.7 and a hematocrit of 39.9. Platelets were low at that time of 128,000. The patient has tended to run platelets in the 1 40-1 50 range chemistries showed a marked elevation in the BUN consistent with digestion of blood. Electrolytes are otherwise normal creatinine 1.1 liver functions normal. This patient's laboratory results are consistent with acute GI bleeding resulting in critically low hemoglobin and hematocrit over 3-day period of time. ED course: 63-year-old male with a prior history of GI bleeding and anemia requiring transfusion of 3 units presents to the emergency department today appearing pale and weak and we have found again the patient's blood counts are critical. He was evaluated here 3 days ago with normal-appearing blood counts. Blood has been typed and crossmatched and a unit is being administered. Admission to the hospital is indicated. Departure - Departure Disposition: [facility] DC/Xfer Clinical Impression: GI bleeding Qualifiers: GI bleed type/associated pathology: gastritis Gastritis type: acute gastritis Qualified Code(s): K29.01 - Acute gastritis with bleeding Condition: Serious Forms: PCP List
--- NOTE | 2024-02-10 13:07 | HISTORY & PHYSICAL EXAMINATION ---
Chief Complaint - Chief Complaint Chief Complaint: abd pain and dark stool History of Present Illness - Admitted From Admitted From:: home via EMS - History Obtained From Records Reviewed: [facility] History obtained from: Dr. Préez and patient Exam Limitations: none - History of Present Illness HPI Comment/Other: Patient has a known history of gastric ulcers. He does have iron deficiency anemia as far back as 01/2018 when it was indentified with an observation stay for chest pain at [place]. He was rx'd iron tabs and also sent [place] [facility] [place]. Rectal pain started 07/2018 with hemorrhoids. Referred for colonscopy but not able to get in for weeks. He then had an admission in September 2018 with abdominal pain, rectal pain, and dark stools. That EGD had blood in the distal esophagus, blood in the stomach and duodenum. Small bleeding ulcers that were injected. He is not supposed to be on nonsteroidals and is supposed to be on a proton pump inhibitor. Referred for screening colonoscopy 10/2019 but he had to cancel due to Covid pandemic 12/2019. Had abd pain and cp 04/2023 that was attributed to all the citrus in his food and pills (TUMS, juice, etc). Transported to [facility] stayed 2 nights with SD ruled out. EGD suggested. He came to the emergency room February 06. Called EMS because of abdominal pain. He also had coffee-ground emesis that day that started in the morning. His baseline hemoglobin is 15.6 or 14.9. With that ER visit he was 13.7. He was hemodynamically stable and was asked to follow-up with general surgery for follow-up EGD. He now returns today, again by ambulance, because of periumbilical abdominal pain. Dark firm stool that has been daily for 3 days. He has nausea but no vomiting. He is on Plavix and omeprazole. Pale, fatigued. Blood pressure 122/82 with a heart rate of 85. This time his hemoglobin is 6.6. White cell count is elevated at 13.4. The emergency room provider and I discussed the case. This gentleman has known peptic ulcer disease. He is not taking nonsteroidals. He is not currently smoking. Not currently drinking. Because of the severity of acute blood loss anemia, I agree with the primary ER MD to bring this patient in for observation status. He has already called general surgery. General surgery does not feel the need to urgently scope him today. However if I transfuse him, and he continues to require blood or becomes hem odynamically unstable he will scope him at that time. PMH: 1. Coronary artery disease. Came to our ER with cp and ST elvation seen. Transferred to [facility] and Dx of CHF and CAD. BARRON to left main extending into LCx, BARRON from L main to LAD, BARRON to RCA August 05, 2016. Echo January 2017 with EF 55 to 60%, mild mitral regurgitation, no segmental wall abnormalities. Did have paradoxical septal motion consistent with postoperative state. RVSP at rest [address] of chest for lung nodules show severely calcified coronary arteries. Had worseing crooks 06/2017 and second cath done. Had patent stents with iFR of mid RCA done to evaluate a lesion and hemodynamically insignificant lesion seen. 01/2018 chest pain w anxiety and ER visit x 5 that month. With one visit there, he went to [facility]. Improved p GI cocktail and sent home. Was placed in OBV 01/29/2018 for this and no intervention. Ellis to be anxiety. In 09/2021 had another ER visit at [facility] for cp and new SD. Reopened 1 stent, added another one. November 2021 another stent. 04/2023 Seen at [facility] for dyspepsia and cp and found to have citrus reaction. 2. Carotid artery disease. CEA 09/2012. Has difficulty walking but no PVD on dopplers 2016. 3. Hypertension 4. Emphysema, former smoker (25 pack yr hx). October 2016 PFTs: FVC 3.61, FEV1 2.64. Ratio 73%. 96% of predicted. No change with bronchodilators. FVC is 3.57. Diffusion capacity 14.28, 46% of normal. He has obstructed lung disease. Reduced vital capacity. Severe loss of functional alveolar capacity surface. Oxygen desat test recommended at that time. CTs of chest done for pulmonary nodule in 2016, 2020 and 2022 all show moderate to severe emphysema. 5. Ishcemic cardiomyopathy. With SD 08/2016, his EF was 25%. but resolved with Echo 01/2017 and normal EF 55-60%. FU Echo 06/2019 w 44% EF. 6. Bright red blood per rectum/severe rectal pain with 09/2018 UGI bleed. exam showing thrombosed hemorrhoids that were gangrenous. Hemmorhoidectoy done and biopsy had hemorrhoid tissue with ulceration, chronic active inflammation and reactive changes, negative for malignancy 7. Scarring right upper lung lobe, nodule lateral aspect left upper lobe stable on CT 2016, October 2020, and August 2023. 8. Nonobstructive right renal stone and small left nonobstructing stones. 9. Generalized anxiety. Tried Buspar 02/2018. Ineffective so Paxil tried. In 1 day he went to the ER 5 times in September 2021. Described as "veins on fire". Ativan does help. On and off Paxil. At that time had PTCA again so really triggered panic and tried 11/2021. H shaky episodes where he does not what they come from. 12. Season Allergies 13. Migraine BHATT. 14. Thoracic aneurysm History - Past Medical History Cardiovascular: reports: Hypertension, Coronary artery disease, [place] Respiratory: reports: None Endocrine/Autoimmune: reports: None GI: reports: GI bleed, Other Psych: reports: Anxiety MRSA Hx?: No - Past Surgical History Cardiovascular: reports: Coronary stent - Family & Social History Family History: Mother: Alive and Well Family History Comment/Other: Father . Had CHF, emphysema, DM, HTN, stroke. Mom healthy. 2 blood brothers, 1 of suicide ae 27, other healthy. 2 blood sisters healthy but one is breast ca. 2 children are healthy Living arrangement: At home Living Situation: With family Social History Notes: No recreational substances except for cannibus. Last use was a week ago. No alcohol abuse. Former smoker pf 1 ppd for 40 years and quit 2011. 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 When he was very young he did try methamphetamines and cocaine but he said he was dumb and stupid and has not done it since he was in his early 20s. No IV drug abuse. He is in contact with his 2 children in [facility]. . Ex- is . - Substance History Use: Uses substance without health or social issues: Cannabis - POLST Patient has POLST: Yes POLST Status: Full Code (POLST done today) Meds/Allgy - Home Medications Home Medications: Ambulatory Orders Medication Instructions Recorded Confirmed lisinopriL [Lisinopril] 10 mg PO TID 01/10/17 02/10/24 Atorvastatin Calcium [Lipitor] 80 mg PO DAILY 09/21/18 02/10/24 Clopidogrel [Plavix] 75 mg PO DAILY 02/07/24 02/10/24 Omeprazole 40 mg PO BID #30 cap 02/07/24 02/10/24 amLODIPine [Norvasc] 5 mg PO BID 02/07/24 02/10/24 carvediloL [Coreg] 25 mg PO BID 02/07/24 02/10/24 Nitroglycerin [Nitrostat] 0.4 mg SL [id number] PRN 02/10/24 02/10/24 - Allergies Allergies/Adverse Reactions: Allergies Allergy/AdvReac Type Severity Reaction Status Date / Time ibuprofen Allergy Nausea Verified 02/10/24 11:12 Review of Systems - Constitutional Constitutional: denies: Fatigue, Fever, Chills, Malaise, Weakness, Poor appetite, Diaphoresis, Night sweats - Eyes Eyes: reports: Vision loss (as he has aged), Other (no glaucoma or cataracts). denies: Pain, Irritation, Amaurosis - Ears, Nose & Throat Ears, Nose & Throat: reports: Hearing loss (mild), Vertigo. denies: Ear pain, Hearing aids, Tinnitus, Nasal congestion, Postnasal drainage, Dentures, Sore throat - Cardiovascular Cariovascular: reports: Irregular heart rate, Palpitations, Chest pain, Lightheadedness, Syncope, Exertional dyspnea (when he mows the lawn but he can do it. walks daily w his dog to the beach. As long as he does it slowly he can complete a walk). denies: Decr. exercise tolerance - Respiratory Respiratory: reports: Cough (daily and mild, nonproductive), SOB with exertion. denies: Hemoptysis, Orthopnea, SOB at rest - Gastrointestinal Gastrointestinal: reports: Abdominal pain (epigastric and periumbilical), Black stools, Reflux/heartburn. denies: Constipation, Diarrhea - Genitourinary Genitourinary: denies: Dysuria, Frequency, Urgency, Hematuria, Incontinence, Flank pain - Musculoskeletal Musculoskeletal: reports: Back pain. denies: Muscle pain, Muscle aches, Stiffness, Gout, Joint pain - Integumentary Integumentary: denies: Rash, Pruritis, Lesions, Dryness - Neurological Neurological: reports: Headache, Dizziness. denies: General weakness, Focal weakness, Memory problems, Pre-existing deficit, Incoordination, Slurred speech - Psychiatric Psychiatric: reports: Anxiety (has resolved he states.). denies: Hallucinations, Homicidal - Endocrine Endocrine: denies: Polyuria, Polydypsia, Polyphagia, Intolerance to cold - Hematologic/Lymphatic Hematologic/Lymphatic: reports: Anemia. denies: Bruising, Petechiae, Blood clots, Lymphadenopathy Prior Level of Functionality: Independent with activities of daily living. Drives a car. Does laundry. Helps mom take care of the house. Dresses himself and feed himself without any durable medical equipment. Exam - Vital Signs Reviewed Vital Signs: Yes Vital Signs: Vital Signs x48h Temp Pulse Resp BP Pulse Ox 02/10/24 11:07 36.6 C 85 18 122/82 H 100 - Physical Exam General Appearance: positive: No acute distress, Alert, Other ( Fatigued appearing male slightly disheveled with unshaven velazquez, but no acute distress. Does look pale. 2 times had 30 to 45 seconds of head tremor and hand tremor as he spoke to me. He says that is new and he does not know where that is from) Eyes Bilateral: positive: PERRL, EOMI ENT: positive: No signs of dehydration Neck: positive: No JVD, Other (L carotid scar). negative: Stiff neck Respiratory: positive: No respiratory distress. negative: Wheezes, Rales, Rhonchi Abdomen: positive: Non-tender, No organomegaly, Nml bowel sounds, No distention Skin: positive: Warm, Dry Extremities: positive: Non-tender, Full ROM, No pedal edema Neurologic/Psychiatric: positive: Oriented x3, CN's nml (2-12), Motor nml Conclusion/Plan - Problem List (1) Acute blood loss anemia Conclusion/Plan: an association with melena, history of 2 gastric ulcers, and iron deficiency anemia of longstanding duration. Because of his history of bleeding and an EGD showed ulcers, my presumption is that is occurred again. Plan: Observation status Surgery consult called, Dr. Jimenez to see the patient Hemoglobin every 8 hours for O2 sats Transfuse if he is below 8. He has coronary artery disease and multiple stents and I like to keep his hemoglobin greater than 8. (2) GI bleed Conclusion/Plan: Melena indicating that he still having gastric ulcer bleeding. Does not appear to be hemorrhaging but appears to be large enough blood loss that i his stool is black. Plan: Proton pump inhibitor twice daily No nonsteroidals, no alcohol EGD at the discretion of general surgery. In reviewing his chart it has been recommended to get a colonoscopy. He said he did not follow through because he was told "that he did not need 1" on the basis of an in office stool check. I explained that the recommendations for screening colonoscopy still require a colonoscopy after certain age regardless of the results of the stool test. He is 63 years old and has never had a colonoscopy. I told him that if he is going to get an EGD in the outpatient setting, consider getting a combined EGD and colonoscopy. Qualifiers: GI bleed type/associated pathology: gastritis Gastritis type: acute gastritis Qualified Code(s): K29.01 - Acute gastritis with bleeding (3) Gastric ulcer Conclusion/Plan: H. pylori was negative on pathology with his first EGD. Surgery will be checking serum H. pylori with next blood draw. Patient will stay on proton pump inhibitor while he is here. No aspirin, Aleve, ibuprofen, Celebrex, etc. EGD in the outpatient setting. Qualifiers: Gastric ulcer chronicity: chronic Gastric ulcer complication status: with hemorrhage Qualified Code(s): K25.4 - Chronic or unspecified gastric ulcer with hemorrhage (4) CAD (coronary artery disease) Conclusion/Plan: ongoing disc factor modification . He is on 3 antihypertensives. Plavix for platelet dysfunction. One of the blood pressure medicines as a beta-nehemias. And he is on a statin. Qualifiers: Coronary Disease-Associated Artery/Lesion type: [place] artery [place] vs. transplanted heart: [place] heart Associated angina: angina presence unspecified Qualified Code(s): I25.10 - Atherosclerotic heart disease of [place] coronary artery without angina pectoris (5) Panic attacks Conclusion/Plan: He stopped taking all medications for panic attacks. He says he no longer gets them. #1 his last 1 was but he thinks it was over a year ago. However he is having uncontrollable shakes that come and go. They are not rigors. They are not painful. They are not seizures. He says also started in the last few months and only last a few moments if he is stressed out. - Lab Results Lab results reviewed: Yes Fish Bones: 02/10/24 17:58 02/10/24 11:17 - EKG Results EKG Interpreted Independently: No Core Measures - Anticipated LOS I expect patient to be DC'd or transferred within 96 hours.: Yes - DVT/VTE - Prophylaxis VTE/DVT Device ordered at admit?: Yes VTE/DVT Prophylaxis med ordered at admit?: Yes
[2024-02-10] MEDS ORDERED: ACETAMINOPHEN 325 MG TABLET PO PRN (13:54)
[2024-02-10] MEDS ORDERED: oxyCODONE 5 MG TABLET PO PRN (13:54)
[2024-02-10] MEDS ORDERED: ONDANSETRON ODT 4 MG TABLET TL PRN ×2 (13:54→13:59)
[2024-02-10] MEDS ORDERED: ONDANSETRON 4 MG/2 ML VIAL IVP PRN (13:54)
--- NOTE | 2024-02-10 15:09 | CONSULTATION NOTE ---
Referring Provider Consult Date: 02/10/24 Chief Complaint - Chief Complaint Chief Complaint: not feeling well after recurrent ugi bleed History of Present Illness - History Obtained From Records Reviewed: yes History obtained from: pt Exam Limitations: none - History of Present Illness HPI Comment/Other: ugi bleed in 2019. small pyloric ulcer. he denies nsaid use. he has CAD and needs to take plavix daily according to his public health dentist. hx chf, ischemic cardiomyophy. his cardiomyopathy is improved after stents were placed several years ago. he states he last saw his public health dentist a few months ago and meds were adjusted. in general health is good with reasonable exercise tolerance. he is aware he has moderate to severe emphysema. stopped tobacco use 10 years ago and more recently stopped marijuana use due to lung disease. has not had etoh in many years. bloody emesis 3 days ago. last dark stool this am. he was started on a ppi 3 days ago. no recent ppi use prior. no prior h pylori. feels well at this time History - Past Medical History Cardiovascular: reports: Hypertension, Coronary artery disease, [place] Respiratory: reports: None Endocrine/Autoimmune: reports: None GI: reports: GI bleed, Other Psych: reports: Anxiety MRSA Hx?: No - Past Surgical History Cardiovascular: reports: Coronary stent - Family & Social History Family History: Mother: Alive and Well Family History Comment/Other: Father . Had CHF, emphysema, DM, HTN, stroke. Mom healthy. 2 brother, 1 of suicide ae 27. 3 sisters healthy Living arrangement: At home Living Situation: With family Social History Notes: No recreational substances except for cannibus. No alcohol abuse. Former smoker pf 1 ppd for 40 years and quit 2011. 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 - Substance History Use: Uses substance without health or social issues: Cannabis - POLST Patient has POLST: No POLST Status: Full Code Meds/Allgy - Home Medications Home Medications: Ambulatory Orders Medication Instructions Recorded Confirmed lisinopriL [Lisinopril] 10 mg PO BID 01/10/17 02/10/24 Atorvastatin Calcium [Lipitor] 80 mg PO DAILY 09/21/18 02/10/24 Pantoprazole Sodium [Protonix] 20 mg PO BID #60 tablet. 09/24/18 02/10/24 Clopidogrel [Plavix] 75 mg PO DAILY 02/07/24 02/10/24 Omeprazole 40 mg PO BID #30 cap 02/07/24 Ondansetron Odt [Zofran] 4 mg TL Q6H PRN #30 tablet 02/07/24 amLODIPine [Norvasc] 10 mg PO DAILY 02/07/24 02/10/24 carvediloL [Coreg] 25 mg PO DAILY 02/07/24 02/10/24 - Allergies Allergies/Adverse Reactions: Allergies Allergy/AdvReac Type Severity Reaction Status Date / Time ibuprofen Allergy Nausea Verified 02/10/24 11:12 Review of Systems - Other Findings Other Findings: 10 pt ros as above otherwise unremarkable Exam - Vital Signs Vital Signs: Vital Signs x48h Temp Pulse Pulse Resp BP BP Pulse Ox 02/10/24 13:31 37.2 C 76 16 110/65 99 02/10/24 13:08 37.3 C 72 17 108/68 100 02/10/24 11:07 36.6 C 85 18 122/82 H 100 - Physical Exam General Appearance: positive: No acute distress, Alert Eyes Bilateral: positive: PERRL, EOMI ENT: positive: No signs of dehydration Neck: positive: No JVD, Trachea midline Respiratory: positive: No respiratory distress Abdomen: positive: No distention Neurologic/Psychiatric: positive: Oriented x3 Conclusion and Plan - Lab Results Laboratory Results 02/10/24 11:38: WBC 13.4 H, RBC 2.03 L, Hgb 6.6 L*, Hct 19.5 L*, MCV 96.1 H, MCH 32.5 H, MCHC 33.8, RDW 12.7, Plt Count 124 L, MPV 10.4, Neut # (Auto) 9.6 H, Lymph # (Auto) 2.4, Baldwin # (Auto) 1.3 H, Eos # (Auto) 0.0, Baso # (Auto) 0.1, Absolute Nucleated RBC 0.00, Nucleated RBC % 0.0 02/10/24 11:17: Sodium 137, Potassium 4.4, Chloride 108, Carbon Dioxide 24, Anion Gap 5.0 L, BUN 54 H, Creatinine 1.1, Estimated GFR (MDRD) 67 L, Glucose 122 H, Calcium 9.0, Total Bilirubin 0.3, AST 15, ALT 18, Alkaline Phosphatase 40 L, Total Protein 4.7 L, Albumin 3.1 L, Globulin 1.6 L, Albumin/Globulin Ratio 1.9, Lipase 67 02/10/24 11:17: Blood Type O POSITIVE, Antibody Screen NEGATIVE, Crossmatch IS Only See Detail - Diagnosis Diagnosis: ugi bleed. likely has stopped. - Consultation Note Consultation Note: agree with ED MD observation over night is best although Missael feels much better and feels that he could go home. if he appears to have ongoing bleeding plan EGD. if little to no more black bloody stool and if h/h stays stable recommend clears overnight. recommend h pylori stool test. if h pylori negative he should take a ppi daily life long. I will order the h pylori stool test
[2024-02-10] MEDS: PANTOPRAZOLE 40 MG VIAL IVP SCH (16:24)
[2024-02-10] MEDS: SODIUM CHLORIDE 0.9% 1,000 ML IV SCH (16:24)
[2024-02-10] MEDS: SODIUM CHLORIDE FLUSH 0.9% 10 ML SYRINGE IVP SCH (16:24)
--- NOTE | 2024-02-10 16:38 | PHARMACY PROGRESS NOTE ---
- Best Possible Medication History Admit Date and Time: 02/10/24 8732 Processed by: Pharmacy Medications reviewed in ED?: Yes Medication History completed: Yes Patient Interview: Completed Secondary Source(s): Pharmacy records, Insurance records As the person ultimately responsible for medication therapy, providers are able to order a medication from an existing home medication list in [facility] via the "Reconcile Routine" prior to Confirmation of that medication by customer support agent. Such practice is discouraged except when the physician, in their clinical judgment, deems that a medical need exists for a medication without regard to previous use.
[2024-02-10 18:04] LABS: HCT - HEMATOCRIT 23.8 % (42.0-52.0); HGB - HEMOGLOBIN 8.1 g/dL (14.0-18.0); MEAN CORPUSCULAR HEMOGLOBIN 32.4 pg (27.0-31.0); MEAN CORPUSCULAR VOLUME 95.2 fL (80.0-94.0); MEAN PLATELET VOLUME 10.1 fL (7.4-11.4); RED BLOOD COUNT 2.5 10^6/uL (4.70-6.10); RED CELL DISTRIBUTION WIDTH 12.7 % (12.0-15.0); WHITE BLOOD COUNT 12.9 x10^3/uL (4.8-10.8)
[2024-02-10] MEDS: lisinopriL 5 MG TABLET PO SCH (20:45)
[2024-02-10] MEDS: ATORVASTATIN 40 MG TABLET PO SCH (20:46)
[2024-02-10] MEDS ORDERED: PANTOPRAZOLE 40 MG VIAL IVP SCH (21:00)
[2024-02-10] MEDS ORDERED: NON FORMULARY MED (Omeprazole [Omeprazole] 40 MG Capsule.Dr) PO SCH (21:00)
[2024-02-11 00:46] LABS: HCT - HEMATOCRIT 22.9 % (42.0-52.0); HGB - HEMOGLOBIN 7.7 g/dL (14.0-18.0); MEAN CORPUSCULAR HEMOGLOBIN 32.1 pg (27.0-31.0); MEAN CORPUSCULAR HGB CONC 33.6 g/dL (32.0-36.0); MEAN CORPUSCULAR VOLUME 95.4 fL (80.0-94.0); MEAN PLATELET VOLUME 10.5 fL (7.4-11.4); RED BLOOD COUNT 2.4 10^6/uL (4.70-6.10); RED CELL DISTRIBUTION WIDTH 12.8 % (12.0-15.0); WHITE BLOOD COUNT 10.6 x10^3/uL (4.8-10.8)
[2024-02-11] MEDS ORDERED: SODIUM CHLORIDE 0.9% 500 ML IV ONE (04:52)
[2024-02-11 06:05] LABS: HCT - HEMATOCRIT 21.2 % (42.0-52.0); HGB - HEMOGLOBIN 7.2 g/dL (14.0-18.0); MEAN CORPUSCULAR HEMOGLOBIN 32.4 pg (27.0-31.0); MEAN CORPUSCULAR VOLUME 95.5 fL (80.0-94.0); MEAN PLATELET VOLUME 10.4 fL (7.4-11.4); RED BLOOD COUNT 2.22 10^6/uL (4.70-6.10); WHITE BLOOD COUNT 8.5 x10^3/uL (4.8-10.8)
[2024-02-11] MEDS: SODIUM CHLORIDE FLUSH 0.9% 10 ML SYRINGE IVP PRN (06:42)
[2024-02-11 08:56] VITALS: O2SAT 96
[2024-02-11] MEDS: carvediloL 12.5 MG TABLET PO SCH (09:04)
[2024-02-11] MEDS: polyethylene glycoL 3350 17 GM PACKET PO SCH (09:04)
--- NOTE | 2024-02-11 10:29 | Discharge Plan ---
Discharge Plan Problem Reviewed?: Yes Disposition: Home, Self Care Condition: Fair Prescriptions: Ferrous Gluconate 324 mg PO DAILY #60 tablet Diet: Regular Activity Restrictions: Activity as Tolerated Shower Restrictions: No Driving Restrictions: No Health Concerns: You have a complicated history with regards to your heart, panic disorder, high cholesterol, repair of the left carotid artery, and ulcer disease of your stomach.You have iron deficiency as far back as January 2018. That was identified with a stay at [facility] for an observation stay for chest pain and they gave you iron tablets and later you went to our medical ambulatory clinic for iron infusion here at the hospital. July 2018 you had problems with hemorrhoids and rectal pain and you were referred for colonoscopy. While waiting for an appointment for the colonscopy your rectal pain got worse, and then you had abdominal pain with black stools September 2018. We felt you were having a gastrointestinal bleed and you underwent a video camera procedure that looked into your esophagus and stomach. That is called an esophagogastroduodenoscopy or EGD in short terms. That endoscopy showed you to have ulcers of the stomach. One of them was very large and cratered and deep. From that point on, you have been instructed to stay on proton pump inhibitor such as omeprazole. And you are never to take nonsteroidals. So you are never to take aspirin, Aleve, ibuprofen. The only [id number] pain medicine you can take is Tylenol. You were referred for a screening colonoscopy in October 2019 but you had to cancel due to the COVID pandemic by December 2019. You say that you have had your stool checked by your primary care provider. And that stool analysis has indicated that you do not need a screening colonoscopy. In April 2023 you were seen for abdominal pain and chest pain. That was attributed to the citrus in your food and pills. You were transferred to [facility] to make sure you were not having a heart attack and you were not. At that point [facility] suggested another EGD. You came to our emergency room on February 06 and you came in by EMS because of abdominal pain. You also vomited dark granular material that morning. Your hemoglobin is usually 14. When you were in the emergency room that day you were 13.5. Your blood pressure was stable. You did not have a fast heart rate. And while the ER doctor felt that you may be having problems with your stomach you were not sick enough to be admitted to the hospital. You are asked to follow-up with Dr. Montejo or Dr. Hooker to get an EGD. You then came back to the hospital on February 09 because you are again having worsening abdominal pain. Your stool was now quite dark. You had severe nausea but no vomiting. Your blood pressure was stable, your heart rate was 85, you were very pale and fatigued. And this time your hemoglobin was 6.6. We do think you are having problems with your ulcers. We gave you 3 units of blood to get you above 8 g of hemoglobin. We also placed you on intravenous form of omeprazole. The general surgeon did come to reviewed your chart, and he, Dr. Jimenez, does not feel you need an emergency EGD now but you will still need to get that EGD in the outpatient setting. You are tolerating a diet, blood pressure is stable, you are not having dark stools anymore. You still have generalized abdominal aching but not severe. We feel you are stable to return to home. Plan of Treatment: Please see your primary care provider, Isis Ricci, in follow-up. I do believe that you were mistakenly informed about your need for screening colonoscopy. Even if your stool is negative, you still need a screening colon oscopy if you have never had one in your life. So to ask for referral for EGD and colonoscopy. The surgeons at will see you in follow-up for either Dr. Montejo or Dr. Hooker. Continue to avoid any nonsteroidal therapy. So you cannot take aspirin, Aleve, ibuprofen, Naprosyn, Celebrex, Voltaren, etc. The only medicine you can take [id number] for pain and inflammation is Tylenol. I started you on an iron tablet a day. Because you have lost so much blood, you need iron to help you build more iron to your bone marrow. It takes about 3 weeks to build up 1 g of hemoglobin. If you are 8 today it will take you to 3 weeks to get to 9. Normal amount will be 13-14 for you. Please take your omeprazole twice a day for a month and then you can go to once a day thereafter. you do feel ready to go home. You are just hungry and we fed you a regular lunch before you left. However, if your black tarry stool returns, You are lightheaded and dizzy, you have worsening nausea, you will need to come back to the emergency room. Iron tablets will make your stool dark. So you do not necessarily have to come back if your stool is dark. But you should come back if your stool is dark AND you have the other symptoms. At that point in time, you may have to get an EGD in the hospital as an urgent matter. Care Goals: Your primary care goal at this time is to heal your ulcers that you do not have any further bleeding and you do not need any further blood transfusions. Assessment: Patient is alert, oriented to person, place, time and situation No Smoking: If you smoke, Please STOP! Call for help. Follow-up with: Renetta Hooker MD [Provider Admit Priv/Credential] - Brandon Montejo MD [Provider Admit Priv/Credential] - Isis Ricci MD [Provider Admit Priv/Credential] -
[2024-02-11 11:05] LABS: HCT - HEMATOCRIT 24.6 % (42.0-52.0); HGB - HEMOGLOBIN 8.2 g/dL (14.0-18.0)
--- NOTE | 2024-02-11 11:43 | DISCHARGE SUMMARY ---
Discharge Summary Admit Date: 02/10/24 Discharge Date: 02/11/24 Discharging Provider: Isis Ricci MD Primary Care Provider: Nguyen Machado MD Code Status: Attempt Resuscitation Condition at Discharge: Fair Discharge Disposition: 01 Home, Self Care - DIAGNOSES Discharge Diagnoses with Status of Each Condition: 1. Acute blood loss anemia 2. Melena 3. History of gastric ulcers 4. Coronary artery disease 5. Panic disorder 6. Hypertension 7. Chronic systolic heart failure, due to ischemic cardiomyopathy - HPI History of Present Illness: Patient has a known history of gastric ulcers. He does have iron deficiency anemia as far back as 01/2018 when it was indentified with an observation stay for chest pain at [facility]. He was rx'd iron tabs and also sent to the [facility] for iron infusion. Rectal pain started 07/2018 with hemorrhoids. Referred for colonscopy but not able to get in for weeks. He then had an admission in September 2018 with abdominal pain, rectal pain, and dark stools. That EGD had blood in the distal esophagus, blood in the stomach and duodenum. Small bleeding ulcers that were injected. He is not supposed to be on nonsteroidals and is supposed to be on a proton pump inhibitor. Referred for screening colonoscopy 10/2019 but he had to cancel due to Covid pandemic 12/2019. Had abd pa in and cp 04/2023 that was attributed to all the citrus in his food and pills (TUMS, juice, etc). Transported to [facility] stayed 2 nights with [place] ruled out. EGD suggested. He came to the emergency room February 06. Called EMS because of abdominal pain. He also had coffee-ground emesis that day that started in the morning. His baseline hemoglobin is 15.6 or 14.9. With that ER visit he was 13.7. He was hemodynamically stable and was asked to follow-up with general surgery for follow-up EGD. He now returns today, again by ambulance, because of periumbilical abdominal pain. Dark firm stool that has been daily for 3 days. He has nausea but no vomiting. He is on Plavix and omeprazole. Pale, fatigued. Blood pressure 122/82 with a heart rate of 85. This time his hemoglobin is 6.6. White cell count is elevated at 13.4. The emergency room provider and I discussed the case. This gentleman has known peptic ulcer disease. He is not taking nonsteroidals. He is not currently smoking. Not currently drinking. Because of the severity of acute blood loss anemia, I agree with the primary ER MD to bring this patient in for observation status. He has already called general surgery. General surgery does not feel the need to urgently scope him today. However if I transfuse him, and he continues to require blood or becomes hemodynamically unstable he will scope him at that time. - CONSULTS | PROCEDURES Consultations: General surgery, Dr. Obie Jimenez - HOSPITAL COURSE Hospital Course: For his hemoglobin of 6.6, he received 2 units of packed cells. Stayed in the ER with hopes that he could be discharged home. However, his hemoglobin continued to be below 8, and he had a black tarry stool in the emergency room after the second unit. He was placed in observation status. Repeat hemoglobins were done to monitor his status and his blood pressure stayed stable. But hemoglobin did drop below 8. This gentleman has a complicated atherosclerotic history which includes severe coronary artery disease, carotid stenosis, and ischemic cardiomyopathy. Goal of hemoglobin for him should be above 8. As such, he was transfused another unit. Repeat hemoglobin was 8.2. Blood pressure was stable at 125/71. He ate a regular diet. He said that he still felt tired but no chest pain, shortness of breath, orthopnea. And preferred to go home. I have asked him to make sure that he follows up with his primary care provider because he will need referral for a follow-up EGD. He has been referred to Dr. Andrews or Dr. Montejo. I also told the patient that in reviewing his records, he has never had a screening colonoscopy. He says that he has been told that because the stool was "negative" on a stool check through the office, that he does not need a screening colonoscopy. if he has annual FIT testing, he is correct. But he only recalls getting his stool tested once. And he is not getting it checked every year. So I explained to him that he really should get a screening colonoscopy if he cannot do annual FIT testing. Previous restrictions of never taking nonsteroidal therapy are still in place. He is to take a proton pump inhibitor twice a day for the next 30 days and then he can go to once a day. I told him that the iron I am sending him on 1 will make his stool dark, sometimes black. But if his stool is black, and he is lightheaded, severely fatigued, getting chest pain, or having severe abdominal pain he will need to return to the ER. Discharge exam had a temperature of 37.2. Heart rate 75. Blood pressure 121/73. Respirations 18. 96% on room air. He is 5 foot 8 inches tall. He is 65 kg. He appears to be pale gentleman, fatigued appearing, circles under his eyes. Neck is supple. Has a left carotid scar. Lungs are clear to auscultation and percussion. Regular rate and rhythm. PMI normal place and he has a soft systolic ejection murmur at the left lower sternal border. The abdomen has achiness when I palpate in the epigastrium and periumbilical area but no rebound, guarding, or masses. Extremities are thin, no edema. He is able to go from supine to sitting to standing without any assist. This document was made in part using voice recognition software. While efforts are made to proofread this document, sound alike and grammatical errors may occur. - ALLERGIES Allergies/Adverse Reactions: Allergies Allergy/AdvReac Type Severity Reaction Status Date / Time ibuprofen Allergy Nausea Verified 02/10/24 11:12 - MEDICATIONS Home Medications: Ambulatory Orders Medication Instructions Recorded Confirmed lisinopriL [Lisinopril] 10 mg PO TID 01/10/17 02/10/24 Atorvastatin Calcium [Lipitor] 80 mg PO DAILY 09/21/18 02/10/24 Clopidogrel [Plavix] 75 mg PO DAILY 02/07/24 02/10/24 Omeprazole 40 mg PO BID #30 cap 02/07/24 02/10/24 amLODIPine [Norvasc] 5 mg PO BID 02/07/24 02/10/24 carvediloL [Coreg] 25 mg PO BID 02/07/24 02/10/24 Nitroglycerin [Nitrostat] 0.4 mg SL [id number] PRN 02/10/24 02/10/24 Ferrous Gluconate 324 mg PO DAILY #60 tablet 02/11/24 - LABS Result Diagrams: 02/11/24 10:43 02/10/24 11:17
[2024-02-11 11:45] VITALS: BP 121/73
--- NOTE | 2024-02-11 17:00 | ADVANCE CARE PLANNING NOTE ---
Advance Care Planning - Planning Encounter Date: 02/11/24 Time: 09:00 Purpose: Establish care goals and CODE STATUS Parties in Attendance: hospitalist and patient Decisional Capacity of the Patient: alert and oriented to person, place, time and situation. He states he still makes his own decisions. - Diagnosis for Encounter (4) CAD (coronary artery disease) Qualifiers: Associated angina: angina presence unspecified Summary: Coronary artery disease. 08/2016 Came to our ER with cp and ST elvation seen. Transferred to [facility] and Dx of CHF and CAD. BARRON to left main extending into LCx, BARRON from L main to LAD, BARRON to RCA August 05, 2016. Echo January 2017 with EF 55 to 60%, mild mitral regurgitation, no segmental wall abnormalities. Did have paradoxical septal motion consistent with postoperative state. RVSP at rest [address] of chest for lung nodules show severely calcified coronary arteries. Had worseing crooks 06/2017 and second cath done. Had patent stents with iFR of mid RCA done to evaluate a lesion and hemodynamically insignificant lesion seen. 01/2018 chest pain w anxiety and ER visit x 5 that month. With one visit there, he went to [facility]. Improved p GI cocktail and sent home. Was placed in OBV 01/29/2018 for this and no intervention. [place] to be anxiety. In 09/2021 had another ER visit at [facility] for cp and new [place]. Reopened 1 stent, added another one. November 2021 another stent. 04/2023 Seen at [facility] for dyspepsia and cp and found to have citrus reaction. Carotid artery disease. CEA 09/2012. Has difficulty walking but no PVD on dopplers 2016. 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 Most significant is that of coronary artery disease for which she has had several interventions. He currently lives with his mom. He is . His ex- is . He does have 2 children and he is in contact with him. While they are not responsible for helping take care of him, they do come visit. He just saw one of his kids approximately 2 weeks ago. with the of his ex-, his children really got things in order because they do not want to be left not being able to do the right thing by him. So his DURABLE POWER OF INTENSIVE CARE SPECIALIST is his daughter Stephanie. He does not have a POLST form. Philosophically he feels that he is still young and would like to live a longer life. He wants everything done to keep him alive. He wishes to be fully resuscitated, and he wants all interventions done in order to give him a longer life. He really does not know what he would do if he is resuscitated and Has a pulse and a pressure, but is significantly disabled. He has made no plans for nursing homes. He does not think he has the finances for caregivers. he does not know what a long-term is. He has not had any of these conversations with his kids. Currently he is disabled because of his heart disease. He does not use any durable medical equipment. He is currently able to feed himself, dress himself. Objective/Medical Story: Patient has a known history of gastric ulcers. He does have iron deficiency anemia as far back as 01/2018 when it was indentified with an observation stay for chest pain at [facility]. He was rx'd iron tabs and also sent to the [facility] for iron infusion. Rectal pain started 07/2018 with hemorrhoids. Referred for colonscopy but not able to get in for weeks. He then had an admission in September 2018 with abdominal pain, rectal pain, and dark stools. That EGD had blood in the distal esophagus, blood in the stomach and duodenum. Small bleeding ulcers that were injected. He is not supposed to be on nonsteroidals and is supposed to be on a proton pump inhibitor. Referred for screening colonoscopy 10/2019 but he had to cancel due to Covid pandemic 12/2019. Had abd pain and cp 04/2023 that was attributed to all the citrus in his food and pills (TUMS, juice, etc). Transported to [facility] stayed 2 nights with [place] ruled out. EGD suggested. He came to the emergency room February 06. Called EMS because of abdominal pain. He also had coffee-ground emesis that day that started in the morning. His baseline hemoglobin is 15.6 or 14.9. With that ER visit he was 13.7. He was hemodynamically stable and was asked to follow-up with general surgery for follow-up EGD. He now returns today, again by ambulance, because of periumbilical abdominal pain. Dark firm stool that has been daily for 3 days. He has nausea but no vomiting. He is on Plavix and omeprazole. Pale, fatigued. Blood pressure 122/82 with a heart rate of 85. This time his hemoglobin is 6.6. White cell count is elevated at 13.4. The emergency room provider and I discussed the case. This gentleman has known peptic ulcer disease. He is not taking nonsteroidals. He is not currently smoking. Not currently drinking. Because of the severity of acute blood loss anemia, I agree with the primary ER MD to bring this patient in for observation status. He has already called general surgery. General surgery does not feel the need to urgently scope him today. However if I transfuse him, and he continues to require blood or becomes hemodynamically unstable he will scope him at that time. PMH: 1. CAD as above 2. L CEA 3. Hypertension 4. Emphysema, former smoker (25 pack yr hx). October 2016 PFTs: FVC 3.61, FEV1 2.64. Ratio 73%. 96% of predicted. No change with bronchodilators. FVC is 3.57. Diffusion capacity 14.28, 46% of normal. He has obstructed lung disease. Reduced vital capacity. Severe loss of functional alveolar capacity surface. Oxygen desat test recommended at that time. CTs of chest done for pulmonary nodule in 2016, 2020 and 2022 all show moderate to severe emphysema. 5. Ishcemic cardiomyopathy. With [place] 08/2016, his EF was 25%. but resolved with Echo 01/2017 and normal EF 55-60%. FU Echo 06/2019 w 44% EF. 6. Bright red blood per rectum/severe rectal pain with 09/2018 UGI bleed. exam showing thrombosed hemorrhoids that were gangrenous. Hemmorhoidectoy done and biopsy had hemorrhoid tissue with ulceration, chronic active inflammation and reactive changes, negative for malignancy 7. Scarring right upper lung lobe, nodule lateral aspect left upper lobe stable on CT 2016, October 2020, and August 2023. 8. Nonobstructive right renal stone and small left nonobstructing stones. 9. Generalized anxiety. Tried Buspar 02/2018. Ineffective so Paxil tried. In 1 day he went to the ER 5 times in September 2021. Described as "veins on fire". Ativan does help. On and off Paxil. At that time had PTCA again so really triggered panic and tried 11/2021. H shaky episodes where he does not what they come from. 12. Season Allergies 13. Migraine BHATT. 14. Thoracic aneurysm - Past Medical History Cardiovascular: reports: Hypertension, Coronary artery disease, [place] Respiratory: reports: None Endocrine/Autoimmune: reports: None GI: reports: GI bleed, Other Psych: reports: Anxiety MRSA Hx?: No - Past Surgical History Cardiovascular: reports: Coronary stent Hemoglobin dropped below 7 after transfusion of 2 units. We are currently transfusing him 1 more unit. If his hemoglobin gets above 8 he will be discharged home and follow-up with general surgery for EGD and colonoscopy. Goals of Care: He would like to get home soon as possible. He would like to return to home. Plan: Transfuse 1 more unit of blood and hopefully he can be discharged. He needs to have a conversation with his daughter and son about quality of life, what he regards is important. Explained that he wants everything done to keep him alive but that he has not quite figured out what he wants to do if he is disabled and needs 24/7 care. I explained that he and his children should explore that with regards to the financial implications, and as well as quality of life implications. POLST form filled out today and he is a full code with full interventions. I have given him the original and a copy of that is being kept to be scanned into our EMR Code Status: Attempt Resuscitation Time spent on advance care plannin minutes
== END 2024-02-11 12:10 | disposition home or self-care (01) ==
LOC: EDUNIT# → ED 10:53 → MS2 13:54
PROVIDERS: ADMIT Specialist; ATTEND Specialist
DX: D62 Acute posthemorrhagic anemia (principal); K25.4 Chronic or unspecified gastric ulcer with hemorrhage; I25.10 Atherosclerotic heart disease of native coronary artery without angina pectoris; F41.0 Panic disorder [episodic paroxysmal anxiety]; I25.5 Ischemic cardiomyopathy; I11.0 Hypertensive heart disease with heart failure; I50.22 Chronic systolic (congestive) heart failure; Z87.891 Personal history of nicotine dependence; D50.9 Iron deficiency anemia, unspecified; J43.9 Emphysema, unspecified; N20.0 Calculus of kidney; I25.2 Old myocardial infarction; Z79.02 Long term (current) use of antithrombotics/antiplatelets; E78.00 Pure hypercholesterolemia, unspecified; Z95.5 Presence of coronary angioplasty implant and graft
CPT/HCPCS: 36415; 36430; 80053; 83690; 85014; 85018; 85025; 85027; 86850; 86900; 86901; 86920; 96361; 96374; 96376; 99285; A9270; G0378; P9016; 87338

== ENCOUNTER 2024-02-16 14:28 | Outpatient (CLI) | payer MEDICAID ==
[2024-02-16 20:24] LABS: ESTIMATED AVERAGE GLUCOSE 91 mg/dL (70-100); HEMOGLOBIN A1c% 4.8 % (4.27-6.07)
== END 2024-02-16 14:29 | disposition home or self-care (01) ==
LOC: LAB 14:28
PROVIDERS: ATTEND Surgery
DX: K62.5 Hemorrhage of anus and rectum (principal); I10 Essential (primary) hypertension
CPT/HCPCS: 36415; 83036; 85014

== ENCOUNTER 2024-03-01 11:12 | Outpatient (CLI) | payer MEDICAID ==
[2024-03-01 11:29] LABS: BASOPHILS # (AUTO) 0.1 10^3/uL (0.0-0.1); BASOPHILS % (AUTO) 1.1 %; EOSINOPHILS # (AUTO) 0.1 10^3/uL (0.0-0.7); EOSINOPHILS % (AUTO) 1.6 %; HCT - HEMATOCRIT 37.1 % (42.0-52.0); HGB - HEMOGLOBIN 12.1 g/dL (14.0-18.0); LYMPHOCYTES # (AUTO) 0.9 10^3/uL (1.5-3.5); LYMPHOCYTES % (AUTO) 16.7 %; MEAN CORPUSCULAR HEMOGLOBIN 31.6 pg (27.0-31.0); MEAN CORPUSCULAR HGB CONC 32.6 g/dL (32.0-36.0); MEAN CORPUSCULAR VOLUME 96.9 fL (80.0-94.0); MONOCYTES # (AUTO) 0.4 10^3/uL (0.0-1.0); MONOCYTES % (AUTO) 6.8 %; NEUTROPHILS # (AUTO) 4.1 10^3/uL (1.5-6.6); NEUTROPHILS % (AUTO) 73.4 %; PLT - PLATELET COUNT 152 10^3/uL (130-450); RED BLOOD COUNT 3.83 10^6/uL (4.70-6.10); RED CELL DISTRIBUTION WIDTH 14.8 % (12.0-15.0); WHITE BLOOD COUNT 5.6 x10^3/uL (4.8-10.8)
[2024-03-01 12:02] LABS: FERRITIN 35.1 ng/mL (23.9-336.2)
--- NOTE | 2024-03-01 15:50 | XRAY Report ---
PROCEDURE: Lumbar Spine 4V INDICATIONS: LUMBAR RADICULOPATHY TECHNIQUE: 4 views of the lumbar spine were acquired. COMPARISON: CT abdomen/pelvis 11/24/2019. FINDINGS: Surgical change: None. Bones: 5 [id number] vertebrae are present. There is normal bony alignment. No vertebral body co mpression fractures. No suspicious bony lesions. Multilevel disc space and degenerative endplate jenny nges are seen in the acetabular the L3-4 level. There is multilevel facet hypertrophy. Oblique views demonstrate no pars defects. Soft tissues: Overlying bowel gas pattern is normal. Possible infrarenal abdominal aortic aneurysm i s partially imaged on lateral view. IMPRESSION: 1.Moderate multilevel lumbar spondylosis. 2.Suspected infrarenal abdominal aortic aneurysm. Recommend abdominal aortic ultrasound for further e valuation. Reviewed by: Kapil Swift MD on 03/01/2024 3:48 PM PDT Approved by: Kapil Swift MD on 03/01/2024 3:48 PM PDT Station ID: [id number]
== END 2024-03-01 11:13 | disposition home or self-care (01) ==
LOC: LAB 11:12
PROVIDERS: ATTEND Internal Medicine
DX: K92.0 Hematemesis (principal); K62.5 Hemorrhage of anus and rectum; D62 Acute posthemorrhagic anemia; M47.26 Other spondylosis with radiculopathy, lumbar region
CPT/HCPCS: 36415; 82728; 83540; 84466; 85025

== ENCOUNTER 2024-05-14 09:46 | Day surgery (SDC) | payer MEDICAID ==
[2024-05-14] MEDS: LACTATED RINGERS 1,000 ML IV ONE ×2 (10:20→12:04)
[2024-05-14] MEDS ORDERED: PROPOFOL 500 MG/50 ML 500 MG/50 ML VIAL ONE (10:21)
[2024-05-14] MEDS ORDERED: MIDAZOLAM 2 MG/2 ML VIAL ONE (10:24)
[2024-05-14] MEDS ORDERED: LIDOCAINE-MPF 2% 5 ML VIAL ONE (10:24)
--- NOTE | 2024-05-14 10:40 | ANESTHESIA ---
Pre-Anesthesia VS, & Labs - Diagnosis gerd, hemorrhoid, screening - Procedure EGD, colonoscopy Vital Signs: Temp Pulse Resp BP Pulse Ox O2 Flow Rate 36.7 C 66 13 161/98 H 98 05/14/24 10:05/14/24 10:01 05/14/24 10:01 05/14/24 10:05/14/24 10:01 Height: 5 ft 8.5 in Weight (kg): 68 kg Body Mass Index: 22.4 BMI Classification: Normal - NPO >8 hours Home Medications and Allergies lisinopriL [Lisinopril] 10 mg PO TID 01/10/17 Atorvastatin Calcium [Lipitor] 80 mg PO DAILY 09/21/18 Clopidogrel [Plavix] 75 mg PO DAILY 02/07/24 amLODIPine [Norvasc] 5 mg PO BID 02/07/24 carvediloL [Coreg] 25 mg PO BID 02/07/24 Nitroglycerin [Nitrostat] 0.4 mg SL [id number] PRN 02/10/24 Allergies/Adverse Reactions: Allergies Allergy/AdvReac Type Severity Reaction Status Date / Time ibuprofen Allergy Nausea Verified 02/10/24 11:12 [place] [employer] AdvReac Nausea Verified 05/14/24 10:01 Anes History & Medical History - Anesthetic History Anesthesia Complications: reports: No previous complications Family history of Anesthesia Complications: Denies Family history of Malignant Hyperthermia: Denies - Medical History Cardiovascular: reports: Hypertension, High cholesterol, Coronary artery disease, Other (thoracic AAA 2.5cm, cardiac stents x4, last in 2020, no recent CP/SOB,) Pulmonary: reports: Emphysema Gastrointestinal: reports: GERD, GI bleed Urinary: reports: None Neuro: reports: None Musculoskeletal: reports: None Endocrine/Autoimmune: reports: None Skin: reports: None Smoking Status: Former smoker Psychosocial: reports: Anxiety, Cannabis (daily) History of Cancer?: No - Surgical History General: reports: Other Cardiothoracic: reports: Coronary stent, Other (thoracic AAA 2.5cm, no repair) Exam General: Alert, Oriented x3, Cooperative Dental: WNL Mouth Openin Fingerbreadth Neck Mobility: Normal Mallampati classification: I Thyromental Distance: 4-6 cm Respiratory: Lungs clear Cardiovascular: Regular rate Plan Anesthesia Type: General, Total IV Consent for Procedure(s) Verified and Reviewed: Yes Code Status: Attempt Resuscitation ASA classification: 3-Severe systemic disease Is this case an emergency?: No
[2024-05-14] MEDS ORDERED: GLYCOPYRROLATE 1 MG/5 ML VIAL ONE (10:42)
[2024-05-14 12:28] VITALS: O2SAT 99
--- NOTE | 2024-05-14 12:33 | ANESTHESIA POST OP EVALUATION ---
Anesthesia Post Eval - Post Anesthesia Eval Vitals: Last Vital Signs Temp 36.7 C 05/14/24 12:04 Pulse 70 05/14/24 12:27 Resp 22 05/14/24 12:27 BP 123/81 H 05/14/24 12:27 Pulse Ox 99 05/14/24 12:27 O2 Flow Rate CV Function Including HR & BP: Stable Pain Control: Satisfactory Nausea & Vomiting: Negative Respiratory Status: Airway Patent Hydration Status: Satisfactory Anesthesia Complications: None
[2024-05-14 12:41] VITALS: BP 123/81
== END 2024-05-14 09:47 | disposition home or self-care (01) ==
LOC: SDS 09:46
PROVIDERS: ATTEND Surgery
PROC: 0DB78ZX Excision of Stomach, Pylorus, Via Natural or Artificial Opening Endoscopic, Diagnostic (ICD-10-PCS; 2024-05-14)
PROC: 0DBN8ZZ Excision of Sigmoid Colon, Via Natural or Artificial Opening Endoscopic (ICD-10-PCS; principal; 2024-05-14 11:30)
PROC: 0DB48ZX Excision of Esophagogastric Junction, Via Natural or Artificial Opening Endoscopic, Diagnostic (ICD-10-PCS; 2024-05-14 11:30)
DX: D64.9 Anemia, unspecified (principal); K25.4 Chronic or unspecified gastric ulcer with hemorrhage; K63.5 Polyp of colon; K22.89 Other specified disease of esophagus; K21.9 Gastro-esophageal reflux disease without esophagitis; I10 Essential (primary) hypertension; I25.2 Old myocardial infarction; K64.9 Unspecified hemorrhoids; I25.10 Atherosclerotic heart disease of native coronary artery without angina pectoris; Z87.891 Personal history of nicotine dependence; Z87.11 Personal history of peptic ulcer disease; Z87.19 Personal history of other diseases of the digestive system; Z90.49 Acquired absence of other specified parts of digestive tract; Z79.02 Long term (current) use of antithrombotics/antiplatelets; Z95.5 Presence of coronary angioplasty implant and graft; F41.9 Anxiety disorder, unspecified
CPT/HCPCS: 43239; 45380; J7120